=== PATIENT | male | born 1960 | race Caucasian/White ===

== ENCOUNTER 2022-01-06 15:23 | Outpatient (CLI) | payer MEDICAID, SELFPAY ==
--- NOTE | 2022-01-06 15:44 | XRR_ITS ---
PROCEDURE INFORMATION: Exam: XR Right Shoulder Exam date and time: 01/06/2022 3:44 PM Age: 61 years old Clinical indication: Pain; Shoulder; Right; Patient HX: --pt has had prior falls but nothing in the last 8 yrs. ; Additional info: Chronic right shoulder pain TECHNIQUE: Imaging protocol: Radiologic exam of the Right shoulder. Views: 2 or more views. COMPARISON: No relevant prior studies available. FINDINGS: Bones/joints: Small osteophytes at the the right glenoid. Mild hypertrophic changes at the right acromioclavicular joint. Lungs: Visualized lungs are clear. Vasculature: Vascular calcifications in the aorta. Soft tissues: No radiopaque foreign body. XR/XR shoulder RT min 2V* [id number] IMPRESSION: 1. No acute fracture of the right shoulder. Followup imaging recommended in 7-14 days if clinical concern for fracture persists. 2. Mild degenerative changes present at the right shoulder.No soft tissue swelling. 3. Incidental/nonacute findings are listed in the report.
== END 2022-01-06 15:24 | disposition home or self-care (01) ==
PROVIDERS: PCP Family Medicine; Visit Provider Family Medicine
DX: M25.511 Pain in right shoulder (principal); G89.29 Other chronic pain
CPT/HCPCS: 73030

== ENCOUNTER 2022-04-17 10:37 | Emergency (ER) | payer MEDICAID, SELFPAY ==
[2022-04-17 10:47] VITALS: PULSE 104; RESP 18; TEMP 36.4; BMI 25.0
--- NOTE | 2022-04-17 10:57 | ED_ITS ---
HPI - Abdominal Pain General: Chief Complaint: Abdominal Pain Stated Complaint: vito mitchell Time Seen by Provider: 04/17/22 10:55 History of Present Illness: Mr. Davidson is a 61-year-old gentleman with history of COPD presenting to the emergency department due to abdominal pain. He repor ts a few day history of mildly increased cough without associated fevers or significant sputum production. He subsequently developed left upper quadrant and left side pain which is exacerbated by coughing. Feels like a deep spasming ache. Course has worsened. Intensity is moderate to severe. Denies associated GI symptoms. No other specific changes in health, exacerbating, or alleviating factors identified. Onset (ago): day(s) Pain Consistency: constant Location: LUQ Severity: moderate Quality: aching and sharp Radiation: L flank Migration to: no migration Exacerbating factors: movement and other Relieving factors: nothing Associated Symptoms: Reports other Review of Systems General: Reports: 10 or more systems reviewed and unremarkable except in HPI and below GI: Reports: other [facility] ED PFSH: Medical History COPD (chronic obstructive pulmonary disease) PUD (peptic ulcer disease) Surgical History H/O hernia repair Ventral Social History Smoking and tobacco status: current every day smoker cigarettes Packs smoked per day: 0.5 Alcohol intake: never Physical Exam Const: COMMON NORMALS: alert GENERAL APPEARANCE: cooperative and well developed HENMT: COMMON NORMALS: normocephalic and atraumatic HEAD & SCALP: normocephalic and atraumatic Eye: COMMON NORMALS: conjunctivae normal CONJUNCTIVA: Yes conjunctivae normal SCLERA: sclerae normal Neck/C-Spine: COMMON NORMALS: supple GENERAL: Yes trachea midline Resp: COMMON NORMALS: clear to auscultation bilaterally EFFORT & INSPECTION: Yes able to speak in complete sentences AUSCULTATION: clear to auscultation bilaterally Cardio: COMMON NORMALS: regular rate and regular rhythm RATE: regular rate RHYTHM: regular rhythm GI: COMMON NORMALS: Soft to palpation PALPATION: Yes Soft to palpation, Yes Tenderness to palpation present (GI) Details: LUQ, No Guarding due to palpation present (GI) and No Rigid due to palpation Extremity: GENERAL: Yes normal exam except as noted and No edema Neuro: COMMON NORMALS: moves all extremities SENSORIUM/ORIENTATION: Yes alert and No Orientation impaired Psych: COMMON NORMALS: mental status grossly normal and Normal thought process present THOUGHT PROCESS: Normal thought process present Course Vital Signs: Vital signs: Vital Signs Temperature 97.6 F 04/17/22 10:47 Pulse Rate 56 L 04/17/22 13:00 Respiratory Rate 21 H 04/17/22 13:00 Blood Pressure 170/97 04/17/22 13:00 Pulse Oximetry 95 04/17/22 13:00 Oxygen Delivery Me thod 04/17/22 12:36 MDM - Abdominal Pain Medical Decision Making 61-year-old gentleman presenting with abdominal pain and cough. Exam as above. No evidence of acute surgical abdomen. EKG shows likely LVH, sinus rhythm, no STEMI No significant hematologic abnormalities, mild dehydration on metabolic panel. Delta troponin negative. Lipase minimally elevated. Hematuria on urinalysis. Chest x-ray with no lobar consolidation or pneumothorax. CT abdomen and pelvis without obvious cause of patient's symptoms. Incidental findings were discussed with the patient. Improved with fluids and morphine. Most likely cause of patient's symptoms is unspecified abdominal pain and hematuria The results of ED evaluation were discussed with the patient including prescriptions and/or symptomatic cares (if applicable) including appropriate and responsible use, followup plan, and return precautions. The patient verbalized understanding and felt safe for discharge. Medical Records I reviewed the patient's medical records. Lab Data I reviewed the patient's lab results. 04/17/22 11:25 04/17/22 11:25 Labs/Radiology: Radiology Impressions Chest X-Ray 04/17/22 11:10 IMPRESSION: 1. No acute cardiopulmonary finding. No change. Abdomen/Pelvis CT 04/17/22 11:41 IMPRESSION: 1. Posterolateral left 11th rib fracture felt to be chronic. 2. 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 3. No renal, ureteral, nor bladder calculi detected. 4. No acute intra-abdominal pathology. Laboratory Results WBC 4.8 10^3/uL (4.0-10.0) 04/17/22 11:25 RBC 4.82 10^6/uL (4.1-5.3) 04/17/22 11:25 Hgb 15.4 g/dL (11.7-16.6) 04/17/22 11:25 Hct 45.5 % (42.0-52.0) 04/17/22 11:25 MCV 94.4 fl (80-94) H 04/17/22 11:25 MCH 32.0 pg (28.0-34.0) 04/17/22 11:25 MCHC 33.8 g/dL (30.0-36.0) 04/17/22 11:25 RDW 12.0 % (12.1-15.1) L 04/17/22 11:25 Plt Count 160 10^3/cmm (130-400) 04/17/22 11:25 MPV 10.3 fL (7.4-10.4) 04/17/22 11:25 Neut % (Auto) 65.3 % 04/17/22 11:25 Lymph % (Auto) 23.2 % 04/17/22 11:25 Curry % (Auto) 10.7 % 04/17/22 11:25 Eos % (Auto) 0.2 % 04/17/22 11:25 Baso % (Auto) 0.4 % 04/17/22 11:25 Neut # (Auto) 3.12 10^3/uL (1.8-7.7) 04/17/22 11:25 Lymph # (Auto) 1.1 10^3/uL (0.8-4.8) 04/17/22 11:25 Curry # (Auto) 0.5 10^3/uL (0.2-0.9) 04/17/22 11:25 Eos # (Auto) 0.0 10^3/uL (0.0-0.8) 04/17/22 11:25 Baso # (Auto) 0.0 10^3/uL (0.0-0.1) 04/17/22 11:25 Nucleated RBC % (auto) 0 % 04/17/22 11:25 Nucleated RBCs # 0.0 /100WBC 04/17/22 11:25 Sodium 133 mmol/L (136-145) L 04/17/22 11:25 Potassium 4.1 mmol/L (3.5-5.1) 04/17/22 11:25 Chloride 94 mmol/L (98-107) L 04/17/22 11:25 Carbon Dioxide 28 mmol/L (22-29) 04/17/22 11:25 Anion Gap 15.1 (5-19) 04/17/22 11:25 BUN 11 mg/dL (8-23) 04/17/22 11:25 Creatinine 0.8 mg/dL (0.7-1.2) 04/17/22 11:25 GFR Calculation 97.6 mL/min (90-130) 04/17/22 11:25 Glucose 109 mg/dL (65-115) 04/17/22 11:25 Calculated Osmolality 276 mOsm/kg (285-295) L 04/17/22 11:25 Calcium 9.3 mg/dL (8.5-10.5) 04/17/22 11:25 Total Bilirubin 0.3 mg/dL (0.15-1.2) 04/17/22 11:25 AST 32 U/L (0-40) 04/17/22 11:25 ALT 33 U/L (0-41) 04/17/22 11:25 Alkaline Phosphatase 61 U/L (40-130) 04/17/22 11:25 Troponin T Baseline 22 ng/L (0-15) H 04/17/22 11:25 Troponin T 120 Minute 19.59 ng/L (0-15) H 04/17/22 13:19 Delta Troponin T -2.41 ABS# (0-10) L 04/17/22 13:19 Total Protein 7.9 g/dL (6.6-8.7) 04/17/22 11:25 Albumin 4.2 g/dL (3.5-5.2) 04/17/22 11:25 Globulin 3.7 g/dL (1.3-4.6) 04/17/22 11:25 Lipase 61 U/L (13-60) H 04/17/22 11:25 Urine Color Yellow (Yellow) 04/17/22 12:31 Urine Appearance Clear (CLEAR) 04/17/22 12:31 Urine pH 7 (5-7) 04/17/22 12:31 Ur Specific [place] 1.010 (1.005-1.030) 04/17/22 12:31 Urine Protein Neg (Negative) 04/17/22 12:31 Urine Glucose (UA) Norm (Normal) 04/17/22 12:31 Urine Ketones Negative (Negative) 04/17/22 12:31 Urine Blood 3+ (Negative) H 04/17/22 12:31 Urine Nitrate Negative (Negative) 04/17/22 12:31 Urine Bilirubin Neg (Negative) 04/17/22 12:31 Urine Urobilinogen Norm mg/dL (Negative) 04/17/22 12:31 Ur Leukocyte Esterase Negative (Negative) 04/17/22 12:31 Urine RBC 10-15 /hpf (0-2) H 04/17/22 12:31 Urine WBC 0-4 /hpf (0-5) H 04/17/22 12:31 Ur Squamous Epith Cells 0-4 /hpf (0-5) H 04/17/22 12:31 Amorphous Sediment Not Reportable 04/17/22 12:31 Urine Bacteria 1+ /hpf (NONE) H 04/17/22 12:31 Urine Mucus Trace /hpf 04/17/22 12:31 Discharge Plan Discharge Patient Disposition: Home Clinical Impression: Abdominal pain, Hematuria, Dehydration, mild, Cough Condition: Stable Prescriptions: New ondansetron 4 mg tablet,disintegrating 4 mg PO Q8H PRN (Reason: nausea and vomiting) Qty: 15 0RF oxycodone 5 mg tablet 5 mg PO Q4H PRN (Reason: pain) Qty: 4 0RF No Action ProAir HFA 90 mcg/actuation HFA aerosol inhaler 2 puff inhalation Q6H PRN (Reason: Shortness Of Breath) Discharge Orders: Discharge ED (Routine); Ordered 04/17/22 Ordered By: Raudel Bynum Referrals: Milla Og DO [Primary Care Provider] - Discharge Diet: Usual diet Discharge Activity: Increase activity as tolerated Patient Instructions: Hematuria (ED), Abdominal Pain (ED), Opioid Safety, Pain Management Activity Restrictions/Additional Instructions: Thank you for visiting the emergency department. You were seen evaluated for abdominal pain. The exact cause of your abdominal pain is unclear. You were noted to have blood in your urine which requires further outpatient evaluation which can be arranged by your primary care provider. Please follow-up with your primary care provider. Please ensure that you are staying hydrated. Return to the emergency department for uncontrolled symptoms or anything else that you are concerned about a feel needs emergency department evaluation. Coding Level of Care Code ED Animal Husbandman for Chg Fwd Exam Comprehensive
--- NOTE | 2022-04-17 11:10 | XR_ITS ---
WS: [id number] Exam: XR chest 1V portable [id number] Date/Time of Exam: 04/17/2022 11:32 AM Reason For Exam: cough Comparison 03/21/2018. The lungs are fully expanded and clear. Normal cardiomediastinal silhouette. Bony structures are inta ct. Mild levoscoliosis of the T-spine. Monitoring leads superimpose the chest. XR/XR chest 1V portable [id number] IMPRESSION: 1. No acute cardiopulmonary finding. No change.
--- NOTE | 2022-04-17 11:19 | ECG_ITS ---
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 Measurements Intervals [place] Rate: 89 P: 75 MA: 159 QRS: 78 QRSD: 95 T: 69 QT: 363 QTc: 444 Interpretive Statements SINUS RHYTHM VOLTAGE CRITERIA FOR LVH [MEETS CRITERIA IN ONE OF: R(aVL), S(V1), R(V5), R(V5/V6)+S(V1)] No previous ECG available for comparison Electronically Signed On 04-20-2022 18:27:02 DISTRIBUTED GENERATION PROJECT MANAGER by Rj Groves M.D. [id number]
[2022-04-17] MEDS: sodium chloride 0.9% 1,000 ML 999 ML IV (11:28)
[2022-04-17 11:29] VITALS: RESP 16
[2022-04-17] MEDS: morphine 4 mg/mL SDV 1 mL IVP (11:29)
[2022-04-17 11:31] LABS: Basophils % 0.4 %; Eosinophils % 0.2 %; Hematocrit 45.5 % (42.0-52.0); Hemoglobin 15.4 g/dL (11.7-16.6); Lymphocytes # 1.1 10^3/uL (0.8-4.8); Lymphocytes % 23.2 %; Mean Corpuscular HGB Conc 33.8 g/dL (30.0-36.0); Mean Corpuscular Volume 94.4 fl (80-94); Mean Platelet Volume 10.3 fL (7.4-10.4); Monocytes # 0.5 10^3/uL (0.2-0.9); Monocytes % 10.7 %; Neutrophils # 3.12 10^3/uL (1.8-7.7); Neutrophils % 65.3 %; Nucleated Red Blood Cells % 0 %; Platelet Count 160 10^3/cmm (130-400); Red Blood Count 4.82 10^6/uL (4.1-5.3); White Blood Count 4.8 10^3/uL (4.0-10.0)
--- NOTE | 2022-04-17 11:41 | CTR_ITS ---
PROCEDURE INFORMATION: Exam: CT Abdomen And Pelvis With Contrast Exam date and time: 04/17/2022 12:32 PM Age: 61 years old Clinical indication: Abdominal pain; Generalized; Prior surgery; Surgery date: 6+ months; Surgery type: Hernia; Additional info: Luq/l flank pain TECHNIQUE: Imaging protocol: Computed tomography of the abdomen and pelvis with contrast. Total images: 2 Radiation optimization: All CT scans at this facility use at least one of these dose optimization techniques: automated exposure control; mA and/or kV adjustment per patient size (includes targeted exams where dose is matched to clinical indication); or iterative reconstruction. Contrast material: OMNIPAQUE 350; Contrast volume: 95 ml; Contrast route: INTRAVENOUS (IV); COMPARISON: US scrotum [id number] 09/22/2015 2:16 PM RADIATION DOSE METRICS: Total DLP (mGy-cm): 349.73 FINDINGS: Liver: 7 mm benign-appearing hepatic cyst, requiring no further evaluation. Gallbladder and bile ducts: Normal. No calcified stones. No ductal dilation. Pancreas: Normal. No ductal dilation. Spleen: Normal. No splenomegaly. Adrenal glands: Normal. No mass. Kidneys and ureters: No renal, ureteral, nor bladder calculi detected. Stomach and bowel: Unremarkable. No obstruction. No mucosal thickening. Appendix: No evidence of appendicitis. Intraperitoneal space: Unremarkable. No free air. No significant fluid collection. Vasculature: Moderate atherosclerotic disease is evident. 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 Lymph nodes: Unremarkable. No enlarged lymph nodes. Urinary bladder: See Kidneys and ureters finding. Reproductive: The prostate gland contains benign-appearing calcifications that are likely parenchymal. Bones/joints: Posterolateral left 11th rib fracture felt to be chronic. Soft tissues: Unremarkable. CT/CT abdomen pelvis w con* [id number] IMPRESSION: 1. Posterolateral left 11th rib fracture felt to be chronic. 2. 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 3. No renal, ureteral, nor bladder calculi detected. 4. No acute intra-abdominal pathology.
[2022-04-17 11:50] LABS: Troponin(5th) Baseline 22 ng/L (0-15)
[2022-04-17 11:52] LABS: Alanine Aminotransferase 33 U/L (0-41); Albumin Level 4.2 g/dL (3.5-5.2); Alkaline Phosphatase 61 U/L (40-130); Anion Gap 15.1 (5-19); Aspartate Amino Transferase 32 U/L (0-40); Blood Urea Nitrogen 11 mg/dL (8-23); Calcium 9.3 mg/dL (8.5-10.5); Carbon Dioxide 28 mmol/L (22-29); Chloride 94 mmol/L (98-107); Globulin 3.7 g/dL (1.3-4.6); Glomerular Filtration Rate 97.6 mL/min (90-130); Glucose 109 mg/dL (65-115); Lipase 61 U/L (13-60); Osmolality Calculated 276 mOsm/kg (285-295); Potassium 4.1 mmol/L (3.5-5.1); Sodium 133 mmol/L (136-145); Total Bilirubin 0.3 mg/dL (0.15-1.2); Total Protein 7.9 g/dL (6.6-8.7)
[2022-04-17 12:35] VITALS: BP 166/98
[2022-04-17 12:36] VITALS: BP 166/98; PULSE 65; RESP 14; O2SAT 98
[2022-04-17] MEDS: iohexol 350 mg/mL 500 mL Btl (per mL) IV (12:36)
[2022-04-17 13:00] VITALS: BP 170/97; PULSE 56; RESP 21; O2SAT 95
[2022-04-17 13:09] LABS: Add Urine Microscopic? YES; Bilirubin Urine Neg (Negative); Blood Urine 3+ (Negative); Glucose Urine UA Norm (Normal); Ketones Urine Negative (Negative); Leukocyte Esterase Urine Negative (Negative); Nitrate Urine Negative (Negative); Protein Urine Neg (Negative); Urine Appearance Clear (CLEAR); Urine Color Yellow (Yellow); Urobilinogen Urine Norm (Negative); pH Urine 7 (5-7)
[2022-04-17 13:10] LABS: Add Urine Culture? Yes; Bacteria Urine 1+ /hpf; Mucus Urine TRACE /hpf; Squamous Epithelial Cell Urine 0-4 /hpf (0-5); WBC Urine 0-4 /hpf (0-5)
[2022-04-17 13:45] LABS: Troponin 5 2HR 19.59 ng/L (0-15)
[2022-04-17 13:46] LABS: Troponin 5 2HR Delta -2.41 ABS# (0-10)
== END 2022-04-17 13:40 | disposition home or self-care (01) ==
PROVIDERS: Emergency Provider Emergency Medicine; PCP Family Medicine
DX: R10.12 Left upper quadrant pain (principal); R31.9 Hematuria, unspecified; E86.0 Dehydration; R05.9 Cough, unspecified
CPT/HCPCS: 36415; 71045; 74177; 80053; 81001; 83690; 84484; 85025; 87086; 93005; 96361; 96374; 99285; J2270; J7030; Q9967

== ENCOUNTER → 2024-05-04 14:29 | Outpatient (BNVA) | payer MEDICAID, SELFPAY | PROVIDERS: PCP Family Medicine Adult Medicine | DX: J43.1 Panlobular emphysema (principal); R05.9 Cough, unspecified | CPT/HCPCS: 71046 ==

== ENCOUNTER 2024-05-23 10:10 | Emergency (ER) | payer MEDICAID, SELFPAY ==
[2024-05-23] VITALS (17 sets, daily range): BP systolic 125–182; BP diastolic 84–105; PULSE 85–109; RESP 16–22; TEMP 36.3; O2SAT 91–96; BMI 23.4
--- NOTE | 2024-05-23 10:26 | ECG_ITS ---
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 Measurements Intervals [place] Rate: 84 P: 94 ID: [id number] QRS: 95 QRSD: 93 T: 87 QT: 334 QTc: 395 Interpretive Statements SINUS RHYTHM BORDERLINE RIGHT AXIS DEVIATION [QRS AXIS > 90] VOLTAGE CRITERIA FOR LVH [MEETS CRITERIA IN ONE OF: R(aVL), S(V1), R(V5), R(V5/V6)+S(V1)] Compared to ECG 04/17/2022 11:19:12 No significant changes Electronically Signed On 05-23-2024 21:24:43 WEAPONS AND TACTICS INSTRUCTOR by Ras Arroyo M.D. [id number]
--- NOTE | 2024-05-23 10:59 | XRR_ITS ---
PROCEDURE INFORMATION: Exam: XR Chest Exam date and time: 05/23/2024 11:17 AM Age: 63 years old Clinical indication: Cough and dyspnea; Additional info: Dyspnea/cough TECHNIQUE: Imaging protocol: Radiologic exam of the chest. Views: 1 view. COMPARISON: CR XR chest 2V* [id number] 05/04/2024 2:30 PM FINDINGS: Lungs: Asymmetrically small left lung volume. Patchy and hazy airspace opacities in the left lung, worsened compared to 05/04/2024. This likely includes moderate left basilar atelectasis. Pleural spaces: No distinct pneumothorax. Questionable left pleural effusion. Heart/Mediastinum: Allowing for patient positioning, cardiomediastinal silhouette is midline and normal in size. Bones/joints: No acute osseous findings. XR/XR chest 1V portable [id number] IMPRESSION: 1. Asymmetrically small left lung volume. 2. Patchy and hazy airspace opacities in the left lung, worsened compared to 05/04/2024. This likely includes moderate left basilar atelectasis. Overlying asymmetric edema and/or infiltrate is not excluded. 3. Questionable left pleural effusion.
[2024-05-23] MEDS: ipratropium-albuterol 3 mL Neb INHALATION (11:43)
[2024-05-23] MEDS: methylPREDNISolone sod succ 125 mg/2 mL INJ IVP (11:53)
--- NOTE | 2024-05-23 11:57 | ED_ITS ---
HPI - SOB/Dyspnea 2 General: Chief Complaint: Shortness of Breath/Dyspnea Stated Complaint: chest congestion Time Seen by Provider: 05/23/24 10:59 History of Present Illness: HPI Narrative: 63-year-old male presents emergency room complaining of his lungs hurting. I am unable to get him to focus anymore when I ask him specifically where in his chest it is hurting he became angry and said in my chest this is my chest and this is my foot it does not hurt in my foot it hurts in my chest . He denies any previous surgeries to his chest she has not had any hemoptysis or productive cough he has been very short of breath he has a history of COPD patient is a regular smoker. He has had an abnormal lung findings in the past. Denies any fever sweats or chills. No recent trauma. I was able to clarify that his foot was not hurting Associated symptoms: Reports chest pain; Deny abdominal pain, fever(s) or hemoptysis Related Data Home Medications Medication Instructions Recorded Confirmed albuterol sulfate 90 mcg/actuation 2 puff inhalation Q4H PRN 05/23/24 05/23/24 aerosol inhaler (Ventolin HFA) shortness of breath or wheezing Allergies Allergy/AdvReac Type Severity Reaction Status Date / Time No Known Allergies Allergy Verified 05/04/24 14:06 Review of Systems 2 Const: Denies: fever(s) or chills Card: Reports: chest pain; Denies: edema or swelling of feet/ankles Resp: Reports: dyspnea, non-productive cough and wheezing; Denies: hemoptysis GI: Denies: abdominal pain : Denies: dysuria, urinary frequency or urinary urgency Musc: Denies: neck pain or back pain Skin/Breast: Denies: rash PFSH ED 2 PFSH: Medical History Abnormal CT lung screening Lung nodule seen on imaging study Smoker unmotivated to quit Started age 13 1/2 to 1 ppd PUD (peptic ulcer disease) COPD (chronic obstructive pulmonary disease) Surgical History H/O hernia repair Ventral Social History Smoking and tobacco/nicotine status: current every day tobacco/nicotine user cigarettes Packs smoked per day: 0.5 Alcohol intake: never Substance/Drug Use: current Substance/Drug use frequency: few times a week Physical Exam 2 Const: GENERAL APPEARANCE: cooperative ORIENTATION/CONSCIOUSNESS: Yes awake, Yes oriented to person, Yes oriented to place and Yes oriented to time HENMT: COMMON NORMALS: normocephalic, atraumatic and hearing grossly normal bilaterally HEAD & SCALP: normocephalic and atraumatic Resp: OTHER: Absent breath sounds on the left rhonchi expiratory wheeze on the right. Cardio: COMMON NORMALS: regular rate, regular rhythm and No murmurs present (Cardio) RATE: regular rate RHYTHM: regular rhythm GI: COMMON NORMALS: Soft to palpation and No hepatosplenomegaly present A USCULTATION: Yes normoactive bowel sounds PALPATION: Yes Soft to palpation, No Tenderness to palpation present (GI), No Guarding due to palpation present (GI) and Yes No hepatosplenomegaly present Extremity: COMMON NORMALS: normal to inspection, capillary refill normal, no clubbing, cyanosis or edema, no calf tenderness and no pedal edema Neuro: SENSORIUM/ORIENTATION: Yes oriented to person, Yes oriented to place and Yes oriented to time Skin: COMMON NORMALS: no rashes or lesions noted GENERAL SKIN EXAM: no rashes or lesions noted Course 2 Vital Signs: Vital signs: Vital Signs Temperature 97.4 F L 05/23/24 10:23 Pulse Rate 109 H 05/23/24 17:10 Respiratory Rate 22 H 05/23/24 15:45 Blood Pressure 134/92 05/23/24 17:10 Pulse Oximetry 93 05/23/24 17:10 Oxygen Delivery Me thod Nasal Cannula 05/23/24 16:49 Oxygen Flow Rate 2 05/23/24 16:49 MDM - SOB/Dyspnea Medical Decision Making CT shows large mass encasing the left mainstem bronchi. Has completely occluded it and the left lung is essentially completely atelectatic take. Patient has severe pleuritic pain and there is hyperinflation on the right. His oxygen saturation is hovering at 90%, is tachycardic and tachypneic. He was started on 2 L nasal cannula. Will transfer to [place] for pulmonology consultation. Medical Records I reviewed the patient's medical records. Lab Data I reviewed the patient's lab results. 05/23/24 11:55 05/23/24 11:55 Labs/Radiology: Radiology Impressions Chest X-Ray 05/23/24 10:59 IMPRESSION: 1. Asymmetrically small left lung volume. 2. Patchy and hazy airspace opacities in the left lung, worsened compared to 05/04/2024. This likely includes moderate left basilar atelectasis. Overlying asymmetric edema and/or infiltrate is not excluded. 3. Questionable left pleural effusion. Chest CTA 05/23/24 12:01 IMPRESSION: 1. No pulmonary embolism. 2. Volume loss in the LEFT thorax. Mediastinal structures are shifted towards the LEFT with hyperexpansion of the RIGHT lung. 3. Bronchial obstructing mass at the LEFT hilum. LEFT upper lobe bronchus is obstructed by a mass measuring 4.5 x 3.3 x 4.6 cm. Recommend bronchoscopy for biopsy of the mass. PET/CT imaging may also be of benefit. Laboratory Results WBC 9.47 10^3/uL (3.29-11.43) 05/23/24 11:55 RBC 4.81 10^6/uL (3.85-5.65) 05/23/24 11:55 Hgb 15.50 g/dL (11.27-16.99) 05/23/24 11:55 Hct 46.0 % (37-53) 05/23/24 11:55 MCV 95.6 fl (82-101) 05/23/24 11:55 MCH 32.2 pg (27-33) 05/23/24 11:55 MCHC 33.7 g/dL (30-55) 05/23/24 11:55 RDW 12.2 % (12.1-15.1) 05/23/24 11:55 Plt Count 179 10^3/cmm (157-399) 05/23/24 11:55 MPV 9.6 fL (7.4-10.4) 05/23/24 11:55 Neut % (Auto) 70.2 % 05/23/24 11:55 Lymph % (Auto) 19.0 % 05/23/24 11:55 Chambers % (Auto) 7.8 % 05/23/24 11:55 Eos % (Auto) 2.4 % 05/23/24 11:55 Baso % (Auto) 0.4 % 05/23/24 11:55 Neut # (Auto) 6.64 10^3/uL (1.8-7.7) 05/23/24 11:55 Lymph # (Auto) 1.8 10^3/uL (0.8-4.8) 05/23/24 11:55 Chambers # (Auto) 0.7 10^3/uL (0.2-0.9) 05/23/24 11:55 Eos # (Auto) 0.2 10^3/uL (0.0-0.8) 05/23/24 11:55 Baso # (Auto) 0.0 10^3/uL (0.0-0.1) 05/23/24 11:55 Nucleated RBC % (auto) 0 % 05/23/24 11:55 Nucleated RBCs # 0.0 /100WBC 05/23/24 11:55 Specimen Type Arterial 05/23/24 12:25 Sample Site Brachial, right 05/23/24 12:25 ABG pH 7.40 (7.35-7.45) 05/23/24 12:25 ABG pCO2 42.5 mmHg (35-45) 05/23/24 12:25 ABG pO2 62.5 mmHg (80.0-100.0) L 05/23/24 12:25 ABG PO2/FiO2 Ratio 297 05/23/24 12:25 ABG HCO3 26.1 mmol/L (22-26) H 05/23/24 12:25 ABG O2 Saturation 92.3 05/23/24 12:25 ABG Base Excess 0.9 mmol/L (-2.0-2.0) 05/23/24 12:25 Mickey Test N/a 05/23/24 12:25 A-a O2 Gradient 4.6 mmHg (5-10) L 05/23/24 12:25 Hematocrit 46.5 % (42-52) 05/23/24 12:25 Hgb O2 Saturation 89.1 % (95-100) L 05/23/24 12:25 Carboxyhemoglobin 2.6 %THgb (0.4-20.1) 05/23/24 12:25 Methemoglobin 0.9 % (0.4-1.5) 05/23/24 12:25 Total Hemoglobin 15.2 g/dL (14-18) 05/23/24 12:25 Sodium 137.0 mmol/L (131-143) 05/23/24 12:25 Potassium 3.8 mmol/L (3.5-5.0) 05/23/24 12:25 Glucose 103.0 mg/dL (70-115) 05/23/24 12:25 Ionized Calcium 1.2 mmol/L (1.1-1.4) 05/23/24 12:25 O2 Delivery Device Room air 05/23/24 12:25 FiO2 21.0 % 05/23/24 12:25 Green Feed Attendant ID Amh 05/23/24 12:25 Sodium 137 mmol/L (136-145) 05/23/24 11:55 Potassium 4.2 mmol/L (3.5-5.1) 05/23/24 11:55 Chloride 99 mmol/L (98-107) 05/23/24 11:55 Carbon Dioxide 29 mmol/L (22-29) 05/23/24 11:55 Anion Gap 13.2 (5-19) 05/23/24 11:55 BUN 16 mg/dL (8-23) 05/23/24 11:55 Creatinine 0.8 mg/dL (0.7-1.2) 05/23/24 11:55 GFR Calculation 97.0 mL/min (90-130) 05/23/24 11:55 Glucose 99 mg/dL (65-115) 05/23/24 11:55 Calculated Osmolality 285 mOsm/kg (285-295) 05/23/24 11:55 Calcium 9.7 mg/dL (8.5-10.5) 05/23/24 11:55 Total Bilirubin 0.4 mg/dL (0.15-1.2) 05/23/24 11:55 AST 28 U/L (0-40) 05/23/24 11:55 ALT 31 U/L (0-41) 05/23/24 11:55 Alkaline Phosphatase 56 U/L (40-130) 05/23/24 11:55 Troponin T Baseline 13 ng/L (0-15) 05/23/24 11:55 Troponin T 120 Minute 11.32 ng/L (0-15) 05/23/24 12:49 Delta Troponin T -1.68 ABS# (0-10) L 05/23/24 12:49 Total Protein 7.7 g/dL (6.6-8.7) 05/23/24 11:55 Albumin 4.2 g/dL (3.5-5.2) 05/23/24 11:55 Globulin 3.5 g/dL (1.3-4.6) 05/23/24 11:55 Urine Color Yellow (Yellow) 05/23/24 15:00 Urine Appearance Clear (CLEAR) 05/23/24 15:00 Urine pH 6.5 (5-7) 05/23/24 15:00 Ur Specific [place] 1.049 (1.005-1.030) H 05/23/24 15:00 Urine Protein Negative (Negative) 05/23/24 15:00 Urine Glucose (UA) Negative (Normal) 05/23/24 15:00 Urine Ketones 1+ (Negative) H 05/23/24 15:00 Urine Blood 1+ (Negative) A 05/23/24 15:00 Urine Nitrate Negative (Negative) 05/23/24 15:00 Urine Bilirubin Negative (Negative) 05/23/24 15:00 Urine Urobilinogen 1.0 mg/dL (Negative) 05/23/24 15:00 Ur Leukocyte Esterase Negative (Negative) 05/23/24 15:00 Urine RBC 3-5 /hpf (0-2) 05/23/24 15:00 Urine WBC 0-5 /hpf (0-5) 05/23/24 15:00 Ur Squamous Epith Cells 0-5 /hpf (0-5) 05/23/24 15:00 Amorphous Sediment Not Reportable 05/23/24 15:00 Urine Bacteria None seen /hpf (NONE) 05/23/24 15:00 Hyaline Casts 0-4 /lpf H 05/23/24 15:00 Urine Opiates Screen Positive ng/mL (Negative) H 05/23/24 15:00 Ur Barbiturates Screen Negative ng/mL (Negative) 05/23/24 15:00 Ur Phencyclidine Scrn Negative ng/mL (Negative) 05/23/24 15:00 Ur Amphetamines Screen Negative ng/mL (Negative) 05/23/24 15:00 U Benzodiazepines Scrn Positive ng/mL (Negative) H 05/23/24 15:00 Urine Cocaine Screen Negative ng/mL (Negative) 05/23/24 15:00 U Marijuana (THC) Screen Positive ng/mL (Negative) H 05/23/24 15:00 Coronavirus (PCR) Negative (Negative) 05/23/24 11:35 Influenza A (PCR) Negative (Negative) 05/23/24 11:35 Influenza Type B (PCR) Negative (Negative) 05/23/24 11:35 RSV (PCR) Negative (Negative) 05/23/24 11:35 All radiology interpretation(s) finalized by discharge Discharge Plan Discharge Patient Disposition: Xfer Short-Term Hosp Clinical Impression: Mass of left lung Condition: Stable Referrals: Felix Sheppard MD [Primary Care Provider] - Coding Level of Care Code ED Biochemical Engineer for Afua Moncada
--- NOTE | 2024-05-23 12:01 | CT_ITS ---
WS: [id number] CT CHEST ANGIOGRAPHY WITH REFORMATS HISTORY: chest pain/dyspnea TECHNIQUE: Contiguous axial images are obtained through the chest during arterial injection of intrav enous contrast. Images are reconstructed to evaluate the pulmonary arteries. MIP imaging also reviewe d. All CT scans at [facility] use at least one of these dose optimization techniques: automat ed exposure control; mA and/or kV adjustment per patient size (includes targeted exams where dose is matched to clinical indication); or iterative reconstruction. CONTRAST: Omnipaque 350; 100 mL IV. DLP: 18.70 mGy.cm COMPARISON: 12/14/2023 Adequate opacification of the central pulmonary arteries. No central pulmonary embolism. Opacificatio n becomes suboptimal in the subsegmental branches. No pulmonary embolism is identified centrally. Ath erosclerotic ectatic thoracic aorta. There is volume loss in the LEFT thorax with shift of the mediastinal structures to the LEFT. Hyperex pansion of the RIGHT lung. These findings are new since 12/14/2023. There is a mass centered at the LE FT hilum obstructing the proximal LEFT upper lobe bronchus. Mass at the LEFT hilum measures 4.5 x 3.3 x 4.6 cm. Mass extends into to the LEFT upper lobe encasing the bronchovascular tree. Diffusely thro ughout the LEFT lung there is increased interstitial thickening which in part is due to the volume lo ss. Lymphangitic spread of tumor is not excluded. No pneumothorax. Indeterminate periaortic lymph node measures 12 mm. LEFT adrenal adenoma. Visualized liver is clear. Suprarenal aortic calcifications. Mild anterior wedging of T4. CT/CT angio chest PE protcl [id number] IMPRESSION: 1. No pulmonary embolism. 2. Volume loss in the LEFT thorax. Mediastinal structures are shifted towards the LEFT with hyperexpansion of the RIGHT lung. 3. Bronchial obstructing mass at the LEFT hilum. LEFT upper lobe bronchus is o bstructed by a mass measuring 4.5 x 3.3 x 4.6 cm. Recommend bronchoscopy for bi opsy of the mass. PET/CT imaging may also be of benefit.
[2024-05-23 12:02] LABS: Basophils % 0.4 %; Eosinophils # 0.2 10^3/uL (0.0-0.8); Eosinophils % 2.4 %; Lymphocytes # 1.8 10^3/uL (0.8-4.8); Mean Corpuscular HGB Conc 33.7 g/dL (30-55); Mean Corpuscular Hemoglobin 32.2 pg (27-33); Mean Corpuscular Volume 95.6 fl (82-101); Mean Platelet Volume 9.6 fL (7.4-10.4); Monocytes # 0.7 10^3/uL (0.2-0.9); Monocytes % 7.8 %; Neutrophils # 6.64 10^3/uL (1.8-7.7); Neutrophils % 70.2 %; Nucleated Red Blood Cells % 0 %; Platelet Count 179 10^3/cmm (157-399); Red Blood Count 4.81 10^6/uL (3.85-5.65); Red Cell Distribution Width 12.2 % (12.1-15.1); White Blood Count 9.47 10^3/uL (3.29-11.43)
[2024-05-23] MEDS: LORazepam 2 mg/mL INJ 1 mL 1 MG IVP (12:18)
[2024-05-23 12:19] LABS: Alanine Aminotransferase 31 U/L (0-41); Albumin Level 4.2 g/dL (3.5-5.2); Alkaline Phosphatase 56 U/L (40-130); Aspartate Amino Transferase 28 U/L (0-40); Blood Urea Nitrogen 16 mg/dL (8-23); Calcium 9.7 mg/dL (8.5-10.5); Carbon Dioxide 29 mmol/L (22-29); Chloride 99 mmol/L (98-107); Creatinine Clr Calc Pharmacy 89.8193; Globulin 3.5 g/dL (1.3-4.6); Glucose 99 mg/dL (65-115); Osmolality Calculated 285 mOsm/kg (285-295); Sodium 137 mmol/L (136-145); Total Bilirubin 0.4 mg/dL (0.15-1.2); Total Protein 7.7 g/dL (6.6-8.7)
[2024-05-23 12:21] LABS: Covid PCR NEGATIVE (Negative); Influenza A NEGATIVE (Negative); Influenza B NEGATIVE (Negative); Respiratory Syncytial Virus Ce NEGATIVE (Negative)
[2024-05-23 12:33] LABS: Anion Gap 13.2 (5-19); Potassium 4.2 mmol/L (3.5-5.1)
[2024-05-23 12:38] LABS: ABG PCO2 42.5 mmHg (35-45); Alveolar-Arterial Oxygen Gradi 4.6 mmHg (5-10); Arterial Blood Gas Hematocrit 46.5 % (42-52); Base Excess ABG 0.9 mmol/L (-2.0-2.0); Blood Gas Operator Identificat AMH; Blood Gas Sample Site Brachial, right; Blood Gas Sample Type Arterial; Carboxyhemoglobin 2.6 %THgb (0.4-20.1); HCO3 ABG 26.1 mmol/L (22-26); HGB O2 Sat 89.1 % (95-100); Ionized Calcium Level - ABG 1.2 mmol/L (1.1-1.4); Methemoglobin 0.9 % (0.4-1.5); Oxygen Device ROOM AIR; Oxygen Saturation ABG 92.3; PO2 ABG 62.5 mmHg (80.0-100.0); PO2 FiO2 Ratio Arterial Blood 297; Potassium Level - ABG 3.8 mmol/L (3.5-5.0); Total Hemoglobin 15.2 g/dL (14-18)
[2024-05-23 12:42] LABS: Troponin(5th) Baseline 13 ng/L (0-15)
[2024-05-23] MEDS: morphine 4 mg/mL SDV 1 mL IVP ×2 (13:21→15:45)
[2024-05-23] MEDS: iohexol 350 mg/mL 500 mL Btl (per mL) IV (13:44)
--- NOTE | 2024-05-23 13:46 | PC.NURSE ---
pt has been having odd behaviors upon being seated in er. pt at first ct scan would not tolerate sitting still or laying flat for scan. pt brought back to room, notified and ordered meds, pt received meds and stated they helped, ct tried again, pt was able to tolerate laying flat more this time. pt still at times would not follow directions. pt scan completed. pt currently resting in bed on side with eyes closed.
--- NOTE | 2024-05-23 13:53 | PC.NURSE ---
pt has continued to take off vital signs equipment even after being told to leave them on. pt voiced understanding and then continues to remove them. pt also received pain medications, stated they helped.
--- NOTE | 2024-05-23 14:08 | ECG_ITS ---
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 Measurements Intervals [place] Rate: 99 P: 0 DE: 0 QRS: 95 QRSD: 90 T: 79 QT: 333 QTc: 427 Interpretive Statements SUPRAVENTRICULAR RHYTHM BORDERLINE RIGHT AXIS DEVIATION [QRS AXIS > 90] VOLTAGE CRITERIA FOR LVH [MEETS CRITERIA IN ONE OF: R(aVL), S(V1), R(V5), R(V5/V6)+S(V1)] NONSPECIFIC ST ELEVATION [0.05+ mV ST ELEVATION] Compared to ECG 05/23/2024 10:26:01 Supraventricular rhythm now present ST (T wave) deviation now present Sinus rhythm no longer present Electronically Signed On 05-23-2024 21:48:55 GENERATION ENGINEER by Ras Arroyo M.D. [email or web address]
[2024-05-23 14:11] LABS: Troponin 5 2HR 11.32 ng/L (0-15)
[2024-05-23 14:19] LABS: Troponin 5 2HR Delta -1.68 ABS# (0-10)
[2024-05-23 15:20] LABS: Bilirubin Urine Negative (Negative); Blood Urine 1+ (Negative); Glucose Urine UA Negative (Normal); Ketones Urine 1+ (Negative); Leukocyte Esterase Urine Negative (Negative); Nitrate Urine Negative (Negative); Protein Urine Negative (Negative); Urine Appearance Clear (CLEAR); Urine Color Yellow (Yellow); pH Urine 6.5 (5-7)
--- NOTE | 2024-05-23 15:24 | PC.NURSE ---
er to er transfer called to iris ricardo rn at 1520. [facility] transfer for pulmonology.
[2024-05-23 15:25] LABS: Add Urine Microscopic? YES; Bacteria Urine None Seen /hpf; Hyaline Casts Urine 0-4 /lpf; Squamous Epithelial Cell Urine 0-5 /hpf (0-5); WBC Urine 0-5 /hpf (0-5)
[2024-05-23 15:29] LABS: Amphetamines Screen Urine Negative (Negative); Barbiturates Screen Urine Negative (Negative); Benzodiazepines Screen Urine Positive (Negative); Cocaine Screen Urine Negative (Negative); Opiate Screen Urine Positive (Negative); PCP Screen Urine Negative (Negative); THC Screen Urine Positive (Negative)
[2024-05-23 15:35] LABS: Specific Gravity, Urine 1.049 (1.005-1.030)
--- NOTE | 2024-05-23 16:49 | PC.NURSE ---
pt has continued to remove vs equipment.
== END 2024-05-23 17:13 | disposition short-term general hospital (02) ==
PROVIDERS: Emergency Provider Family Medicine; PCP Family Medicine Adult Medicine
DX: R91.8 Other nonspecific abnormal finding of lung field (principal); Z11.52 Encounter for screening for COVID-19; F17.210 Nicotine dependence, cigarettes, uncomplicated; J44.9 Chronic obstructive pulmonary disease, unspecified
CPT/HCPCS: 36415; 36600; 71045; 71275; 80051; 80053; 80306; 81001; 82330; 82805; 84484; 85025; 87637; 93005; 94640; 96374; 96375; 96376; 99285; J2060; J2270; J2919

== ENCOUNTER 2024-05-27 23:21 | Emergency (ER) | payer MEDICAID, SELFPAY ==
[2024-05-27 23:32] VITALS: BP 138/90; PULSE 103; RESP 20; TEMP 36.7; O2SAT 90; BMI 22.6
--- NOTE | 2024-05-27 23:36 | W.ED.GENADLT ---
HPI - General Adult General: Chief complaint: Shortness of Breath/Dyspnea Stated complaint: SOB Time Seen by Provider: 05/27/24 23:31 History of Present Illness: Patient presents to the ER by EMS with complaints of shortness of breath. Patient was on his way home from [facility] where they did a bronchoscopy with a biopsy earlier today and sent him home on oxygen is never had it before. It sounds like they sent him home with a bottle of oxygen and also a concentrator but for some reason he is unable to get the concentrator to come on the bottle is out so he was short of breath when he called EMS. EMS placed him on oxygen and brought him here. Patient says he has no complaints other than just needs working oxygen. Related Data Home Medications Medication Instructions Recorded Confirmed albuterol sulfate 90 mcg/actuation 2 puff inhalation Q4H PRN 05/23/24 05/23/24 aerosol inhaler (Ventolin HFA) shortness of breath or wheezing Allergies Allergy/AdvReac Type Severity Reaction Status Date / Time No Known Allergies Allergy Verified 05/04/24 14:06 Review of Systems General: Reports: 10 or more systems reviewed and unremarkable except in HPI and below PFSH ED PFSH: Medical History Abnormal CT lung screening Lung nodule seen on imaging study Smoker unmotivated to quit Started age 13 1/2 to 1 ppd PUD (peptic ulcer disease) COPD (chronic obstructive pulmonary disease) Surgical History H/O hernia repair Ventral Social History Smoking and tobacco/nicotine status: current every day tobacco/nicotine user cigarettes Packs smoked per day: 0.5 Alcohol intake: never Substance/Drug Use: current Substance/Drug use frequency: few times a week Physical Exam Const: COMMON NORMALS: no acute distress, average body habitus, patient oriented x3, no limitations, healthy appearing, alert and well nourished Neck/C-Spine: COMMON NORMALS: no JVD Chest: COMMONS NORMALS: normal inspection of the chest and normal palpation of entire chest wall Resp: COMMON NORMALS: normal respiratory effort, No retractions, No use of accessory muscles and clear to auscultation bilaterally AUSCULTATION: clear to auscultation bilaterally Cardio: COMMON NORMALS: no JVD, regular rate, regular rhythm, S1 normal heart sound present, S2 normal heart sound present, No gallops present (Cardio), No clicks present (Cardio), No murmurs present (Cardio) and No rub (Cardio) RATE: regular rate RHYTHM: regular rhythm HEART SOUNDS: S1 normal heart sound present and S2 normal heart sound present GI: COMMON NORMALS: Normal to inspection, nondistended, normoactive bowel sounds present, Soft to palpation, non-tender, No hepatosplenomegaly present and no masses PALPATION: Yes Soft to palpation and Yes No hepatosplenomegaly present Neuro: COMMON NORMALS: patient oriented x3 SENSORIUM/ORIENTATION: Yes alert Course Vital Signs: Vital signs: Vital Signs Temperature 98.1 F 05/27/24 23:32 Pulse Rate 88 05/28/24 03:01 Respiratory Rate 20 H 05/28/24 03:01 Blood Pressure 119/80 05/28/24 00:39 Pulse Oximetry 99 05/28/24 03:01 Oxygen Delivery Me thod Nasal Cannula 05/28/24 03:01 Oxygen Flow Rate 2 05/28/24 03:01 MDM - General Adult Medical Decision Making Nursing called home health oxygen company they will come out the services equipment make sure it is working correctly. Patient must be there before the are on their way. Patient be discharged from the hospital. Medical Records I reviewed the patient's medical records. Lab Data I reviewed the patient's lab results. No radiology studies performed this visit Discharge Plan Discharge Patient Disposition: Home Clinical Impression: Hypoxia Condition: Stable Prescriptions: No Action albuterol sulfate [Ventolin HFA] 90 mcg/actuation HFA aerosol inhaler 2 puff inhalation Q4H PRN (Reason: shortness of breath or wheezing) Discharge Orders: Discharge ED (Routine); Ordered 05/28/24 Ordered By: Jhony Rucker Referrals: Felix Sheppard MD [Primary Care Provider] - 1 week Patient Instructions: Shortness of Breath (ED) Activity Restrictions/Additional Instructions: We have called your home health oxygen company they will be coming out to service your equipment and make sure it is working correctly. Thank you for choosing [facility] for your healthcare needs today. Please realize that you were seen in the emergency department and that we are providing you with an emergency medical screening exam and this may not be a complete and all exclusive of all testing and/or medical workup we may need to determine your element or severity of your illness. It is very important that you follow-up as instructed with your primary care provider or specialist for the additional evaluation and to discuss your medical treatment plan. You may return to the emergency department should you have concerns or if your condition changes or worsens in any way. Coding Level of Care Code ED Hypertrichologist for Afua Moncada
[2024-05-28 00:01] VITALS: BP 112/83; PULSE 88; RESP 22; O2SAT 92
[2024-05-28 00:39] VITALS: BP 119/80; PULSE 85; RESP 22; O2SAT 93
[2024-05-28] MEDS: morphine 4 mg/mL SDV 1 mL IVP (01:21)
[2024-05-28] MEDS: prochlorperazine 10 mg/2 mL Inj IVP (01:21)
[2024-05-28 03:01] VITALS: PULSE 88; RESP 20; O2SAT 99
[2024-05-28 05:36] VITALS: O2SAT 93
--- NOTE | 2024-05-28 05:37 | PC.NURSE ---
Pt. has been waiting for several hours for [facility] home oxygen to come set up his portable oxygen concentrator. Pt. now has concentrator and is discharged to lobby to get a ride. Pt. was asleep in bed , when woke to discharge he states that he wants more pain medication.
== END 2024-05-28 05:39 | disposition home or self-care (01) ==
PROVIDERS: Emergency Provider Emergency Medicine; PCP Family Medicine Adult Medicine
DX: R09.02 Hypoxemia (principal); F17.210 Nicotine dependence, cigarettes, uncomplicated; J44.9 Chronic obstructive pulmonary disease, unspecified
CPT/HCPCS: 96374; 96375; 99284; J0780; J2270

== ENCOUNTER 2024-05-28 06:11 | Emergency (ER) | payer MEDICAID, SELFPAY ==
[2024-05-28 06:15] VITALS: BP 124/77; PULSE 70; RESP 22; TEMP 36.4; O2SAT 90; BMI 22.8
--- NOTE | 2024-05-28 08:17 | XRR_ITS ---
PROCEDURE INFORMATION: Exam: XR Chest Exam date and time: 05/28/2024 8:30 AM Age: 63 years old Clinical indication: Pain; Chest pressure; Prior surgery; Surgery date: 3-7 days post-operative; Surgery type: Bx; Additional info: Chest pain, recent lung biopsy TECHNIQUE: Imaging protocol: Radiologic exam of the chest. Views: 1 view. COMPARISON: CT angio chest PE protcl [id number] 05/23/2024 1:34 PM FINDINGS: Lungs: Progressive opacification of the left hemithorax, minimal aeration present at this time. This is predominantly atelectatic is there is a distinct shift of the heart and mediastinum towards the left side. The right lung is hyperexpanded. Mild interstitial prominence. Pleural spaces: Unremarkable. No pleural effusion. No pneumothorax. Heart/Mediastinum: See Lungs finding. Bones/joints: Unremarkable. XR/XR chest 1V [id number] IMPRESSION: Increasing opacity on the left.
[2024-05-28 08:34] VITALS: RESP 22
[2024-05-28] MEDS: predniSONE 20 mg Tablet PO (08:34)
[2024-05-28] MEDS: amoxicillin-clav 875-125 mg Tablet 1 TAB PO (08:34)
[2024-05-28] MEDS: oxyCODONE-APAP 10-325 mg Tablet 1 TAB PO (08:34)
[2024-05-28 08:36] VITALS: BP 123/75; PULSE 93; O2SAT 87
[2024-05-28] MEDS: ipratropium-albuterol 3 mL Neb INHALATION (08:40)
[2024-05-28 08:42] VITALS: PULSE 104; RESP 26; O2SAT 90
[2024-05-28 08:47] VITALS: PULSE 96
--- NOTE | 2024-05-28 08:49 | CTR_ITS ---
PROCEDURE INFORMATION: Exam: CT Chest Without Contrast; Diagnostic Exam date and time: 05/28/2024 9:17 AM Age: 63 years old Clinical indication: Chest wall pain and on breathing and left-sided; Prior surgery; Surgery date: Post-operative (0-2 days); Surgery type: Bx; Additional info: Transbronchial lung biopsy 05/26; Here with lung pain, abnl cxr--had biopsy 05/26, appears to have new effusion TECHNIQUE: Imaging protocol: Diagnostic computed tomography of the chest without contrast. Radiation optimization: All CT scans at this facility use at least one of these dose optimization techniques: automated exposure control; mA and/or kV adjustment per patient size (includes targeted exams where dose is matched to clinical indication); or iterative reconstruction. COMPARISON: CT angio chest PE protcl [id number] 05/23/2024 1:34 PM RADIATION DOSE METRICS: Total DLP (mGy-cm): 297.05 FINDINGS: Lungs: There is prominent left lung atelectasis. This is due to a left hilar mass obstructing the left mainstem bronchus. This mass was identified on the previous CT scan. There are emphysematous changes in the right lung. Pleural spaces: Small left pleural effusion. No pneumothorax. Heart: The heart is not enlarged. There is calcification of the coronary arteries. The heart and mediastinum are shifted to the left side. Lymph nodes: Benign calcified lymph nodes. No enlarged lymph nodes. Vasculature: Unremarkable. No aortic aneurysm. Bones/joints: Unremarkable. No acute fracture. Soft tissues: Unremarkable. CT/CT chest wo con [id number] IMPRESSION: 1. Prominent left lung atelectasis due to a left pulmonary hilar mass obstructing the left mainstem bronchus. 2. Small left pleural effusion. 3. Pulmonary emphysema. COMMENTS: The presence of pulmonary emphysema on CT is an independent risk factor for lung cancer. In the absence of a history or active diagnosis of lung cancer, it is recommended that this patient with emphysema be evaluated for enrollment in a low dose CT lung cancer screening program.
--- NOTE | 2024-05-28 08:54 | ED.C_ITS ---
HPI - Psych 2 General: Chief Complaint: Psychiatric Symptoms Stated Complaint: SI due to extreme pain Time Seen by Provider: 05/28/24 06:21 History of Present Illness: 63-year-old male presents emergency depa rtment complaining of lung pain . The patient is a relatively poor historian. However he states that he was seen in the emergency department here (which I have confirmed in the chart) on 05/23 and was found to have a lung mass. He was transferred to [facility] in [place]. He had a trans bronchial lung biopsy on 05/26/2024. He was discharged the following day. Prescriptions for Augmentin 875/125, Stiolto Respimat, oxycodone, and prednisone were sent to a local pharmacy. However that pharmacy is closed during the weekend therefore he was not able to get his prescriptions. He presented last night for running out of his portable oxygen. [facility] at home was consulted and set him up with portable oxygen and an oxygen concentrator. He returns a few hours later stating that he needs pain medication. He reports the pain is all through the chest, mostly on the left side and also radiates to the back. It has been present for at least 1 month. Patient does not note that has changed abruptly. He is using 4 L of oxygen by nasal cannula; patient reports he typically uses between 3 and 4 L. When patient originally presented to the front end technician to check in, I was told that he said if he does not get pain medicine he might have to shoot himself and if he shoots himself he is going to go to hell . Patient is now calm and states he was never suicidal he just gets panicky and upset when he is in pain. He says he does not handle pain very well. Patient adamantly states that he is not thinking about hurting himself or anyone else during my interview. Related Data Home Medications Medication Instructions Recorded Confirmed albuterol sulfate 90 mcg/actuation 2 puff inhalation Q4H PRN 05/23/24 05/28/24 aerosol inhaler (Ventolin HFA) shortness of breath or wheezing Previous Rx's Medication Instructions Recorded amoxicillin 875 mg-potassium 1 tab PO BID 10 days #20 tabs 05/28/24 clavulanate 125 mg tablet oxycodone 5 mg tablet 5 mg PO Q6H PRN pain (scale score 05/28/24 7-10) 14 days #30 tabs prednisone 20 mg tablet See Rx Instructions .Route 05/28/24 .COMPLEX 9 days #7 tabs sennosides 8.6 mg-docusate sodium 1 tab-cap PO BID PRN constipation 05/28/24 50 mg tablet (Senna with Docusate #20 tabs Sodium) tiotropium 2.5 mcg-olodaterol 2.5 2 inh inhalation DAILY #4 grams 05/28/24 mcg/actuation mist for inhalation (Stiolto Respimat) Allergies Allergy/AdvReac Type Severity Reaction Status Date / Time No Known Allergies Allergy Verified 05/04/24 14:06 Review of Systems 2 General: Reports: 10 or more systems reviewed and unremarkable except in HPI and below Const: Denies: fever(s), chills or body aches Eyes: Denies: change in vision ENMT: Denies: throat pain Card: Denies: edema or syncope GI: Denies: abdominal pain, nausea, vomiting or diarrhea : Denies: flank pain, dysuria or urinary frequency Musc: Denies: neck pain, back pain, extremity pain or extremity swelling Skin/Breast: Denies: rash or erythema Neuro: Denies: numbness in extremities, weakness in extremities, lack of coordination or difficulty walking PFSH ED 2 PFSH: Medical History Abnormal CT lung screening Lung nodule seen on imaging study Smoker unmotivated to quit Started age 13 1/2 to 1 ppd PUD (peptic ulcer disease) COPD (chronic obstructive pulmonary disease) Surgical History H/O hernia repair Ventral Social History Smoking and tobacco/nicotine status: current every day tobacco/nicotine user cigarettes Packs smoked per day: 0.5 Alcohol intake: never Substance/Drug Use: current Substance/Drug use frequency: few times a week Physical Exam 2 Narrative: EXAM NARRATIVE: Shortly after patient arrived he fell asleep. When I went into his room his breakfast had been delivered. He was eating Greek toast and eggs. He was conversational and in no distress. His respiratory rate is slightly elevated but he does not appear to be laboring. He is thin. Patient's breath sounds on the left side are decreased and there is somewhat of a reverberation type sound. He has an occasional cough. Const: COMMON NORMALS: no limitations and alert EXAM LIMITATIONS: no altered mental status HENMT: COMMON NORMALS: normocephalic, atraumatic and external ears normal H EAD & SCALP: normocephalic and atraumatic EXTERNAL EAR: Yes external ears normal MOUTH: no muffled voice Eye: COMMON NORMALS: conjunctivae normal and no scleral icterus C ONJUNCTIVA: Yes conjunctivae normal Neck/C-Spine: GENERAL: Yes normal visual inspection and Yes trachea midline Cardio: COMMON NORMALS: regular rate and regular rhythm RATE: regular rate RHYTHM: regular rhythm Extremity: COMMON NORMALS: normal to inspection Neuro: COMMON NORMALS: moves all extremities, no focal motor deficits and no sensory deficits noted SENSORIUM/ORIENTATION: Yes alert SPEECH: speech normal Psych: COMMON NORMALS: mental status grossly normal, Normal thought process present and speech normal SPEECH: Yes normal speech THOUGHT PROCESS: N ormal thought process present Skin: COMMON NORMALS: no rashes or lesions noted, turgor normal and no jaundice GENERAL SKIN EXAM: no rashes or lesions noted and turgor normal Course 2 Vital Signs: Vital signs: Vital Signs Temperature 97.5 F L 05/28/24 06:15 Pulse Rate 96 05/28/24 08:47 Respiratory Rate 26 H 05/28/24 08:42 Blood Pressure 123/75 05/28/24 08:36 Pulse Oximetry 90 05/28/24 08:42 Oxygen Delivery Me thod Nasal Cannula 05/28/24 08:42 Oxygen Flow Rate 4 05/28/24 08:42 [facility] - Psych Medical Decision Making Patient with chronic lung pain. He was found to have an abnormal CT scan of his lung in November [address] angiogram on May 23 he was found to have a mass. The mass was then biopsied on 26 May. He was discharged with pain medication, Augmentin, prednisone, breathing treatment but his pharmacy was not open. Therefore he checks in the emergency department for pain control. His lung sounds were abnormal which I expected based on his CT scan results. However, I went ahead and did a chest x-ray today to make sure he did not have a pneumothorax or pneumomediastinum, etc. He has a new effusion in the left lung. This is probably not unexpected since he had biopsy. There was probably a little bit of bleeding and inflammation. Additionally, it could be a malignant effusion. Since the chest x-ray is only 2-dimensional I cannot get a full picture of what is going on in his lung. I am going to have to repeat a CT scan of the lung without contrast to make sure he does not have pneumothorax, sizable effusion, worsening pneumonia, etc. As long as it is stable I think we can discharge him and refill his medications and a pharmacy that is actually open. Clinically he does not appear distressed in any way. In fact he was conversational and eating breakfast and prior to that was asleep. He is not suicidal or homicidal. I think he has agitation and anger issues which have, according to the chart, been observed previously. Now he is calm and cooperative. We do not need to do any further psychiatric workup. Update: White blood cell count is 8. Hemoglobin is 14.4. Platelets are okay. Mild low potassium, mildly elevated blood sugar, normal renal function. CT scan of the chest shows significant left lung atelectasis due to the left pulmonary hilar mass that is obstructing the left main bronchus. There is a small associated left-sided pleural effusion which is what is accounting for worsening x-ray. The volume of the pleural effusion is small. Overall, these are expected findings. The patient has a high risk of readmission, morbidity and mortality. However, at this time there is no indication for admission as he was just seen by pulmonology in the last 48 hours. I am going to put in a case management consult to have him follow-up with his primary care in the next 3 days and to establish with oncology. Furthermore, I have prescribed his medications and printed them out so that he may take him to the pharmacy of his choice since his usual pharmacy is closed today. Lab Data 05/28/24 09:47 05/28/24 09:47 Radiology Impressions Chest X-Ray 05/28/24 08:17 IMPRESSION: Increasing opacity on the left. Chest CT 05/28/24 08:49 IMPRESSION: 1. Prominent left lung atelectasis due to a left pulmonary hilar mass obstructing the left mainstem bronchus. 2. Small left pleural effusion. 3. Pulmonary emphysema. COMMENTS: The presence of pulmonary emphysema on CT is an independent risk factor for lung cancer. In the absence of a history or active diagnosis of lung cancer, it is recommended that this patient with emphysema be evaluated for enrollment in a low dose CT lung cancer screening program. Laboratory Results WBC 8.03 10^3/uL (3.29-11.43) 05/28/24 09:47 RBC 4.51 10^6/uL (3.85-5.65) 05/28/24 09:47 Hgb 14.40 g/dL (11.27-16.99) 05/28/24 09:47 Hct 42.4 % (37-53) 05/28/24 09:47 MCV 94.0 fl (82-101) 05/28/24 09:47 MCH 31.9 pg (27-33) 05/28/24 09:47 MCHC 34.0 g/dL (30-55) 05/28/24 09:47 RDW 11.9 % (12.1-15.1) L 05/28/24 09:47 Plt Count 183 10^3/cmm (157-399) 05/28/24 09:47 MPV 9.6 fL (7.4-10.4) 05/28/24 09:47 Neut % (Auto) 70.1 % 05/28/24 09:47 Lymph % (Auto) 20.5 % 05/28/24 09:47 [place] % (Auto) 7.1 % 05/28/24 09:47 Eos % (Auto) 2.0 % 05/28/24 09:47 Baso % (Auto) 0.1 % 05/28/24 09:47 Neut # (Auto) 5.62 10^3/uL (1.8-7.7) 05/28/24 09:47 Lymph # (Auto) 1.7 10^3/uL (0.8-4.8) 05/28/24 09:47 [place] # (Auto) 0.6 10^3/uL (0.2-0.9) 05/28/24 09:47 Eos # (Auto) 0.2 10^3/uL (0.0-0.8) 05/28/24 09:47 Baso # (Auto) 0.0 10^3/uL (0.0-0.1) 05/28/24 09:47 Nucleated RBC % (auto) 0 % 05/28/24 09:47 Nucleated RBCs # 0.0 /100WBC 05/28/24 09:47 Sodium 136 mmol/L (136-145) 05/28/24 09:47 Potassium 3.3 mmol/L (3.5-5.1) L 05/28/24 09:47 Chloride 96 mmol/L (98-107) L 05/28/24 09:47 Carbon Dioxide 28 mmol/L (22-29) 05/28/24 09:47 Anion Gap 15.3 (5-19) 05/28/24 09:47 BUN 19 mg/dL (8-23) 05/28/24 09:47 Creatinine 0.8 mg/dL (0.7-1.2) 05/28/24 09:47 GFR Calculation 97.0 mL/min (90-130) 05/28/24 09:47 Glucose 156 mg/dL (65-115) H 05/28/24 09:47 Calculated Osmolality 287 mOsm/kg (285-295) 05/28/24 09:47 Calcium 9.0 mg/dL (8.5-10.5) 05/28/24 09:47 All radiology interpretation(s) finalized by discharge Discharge Plan Discharge Patient Disposition: Home Clinical Impression: Bronchial obstruction, Lung mass, Atelectasis of left lung Condition: Stable Prescriptions: New amoxicillin-pot clavulanate 875-125 mg tablet 1 tab PO BID 10 Days Qty: 20 0RF Stiolto Respimat 2.5-2.5 mcg/actuation mist 2 inh inhalation DAILY Qty: 4 1RF sennosides-docusate sodium [Senna with Docusate Sodium] 8.6-50 mg tablet 1 tab-cap PO BID PRN (Reason: constipation) Qty: 20 0RF oxycodone 5 mg tablet 5 mg PO Q6H PRN (Reason: pain (scale score 7-10)) 14 Days Qty: 30 0RF prednisone 20 mg tablet See Rx Instructions .ROUTE .COMPLEX 9 Days Qty: 7 0RF Rx Instructions: 20 mg orally for 5 days then 10mg orally for 4 days No Action albuterol sulfate [Ventolin HFA] 90 mcg/actuation HFA aerosol inhaler 2 puff inhalation Q4H PRN (Reason: shortness of breath or wheezing) Discharge Orders: Discharge ED (Routine); Ordered 05/28/24 Ordered By: Lukasz Sethi Referrals: Felix Sheppard MD [Primary Care Provider] - 05/30/24 (D/c'd from [facility] after lung biopsy with left bronchial obstruction due to lung mass) Patient Instructions: Opioid Safety, Pain Management Activity Restrictions/Additional Instructions: You have obstruction of part of your lung due to a lung mass. This has been biopsied. The biopsy results will be available through [facility]. You have been instructed by [facility] to follow-up with your primary care doctor in the next couple days and to follow-up with Dr. Solo, computer art instructor with [facility] soon as possible. Your discharge instructions from [facility] have the information to contact Dr. Solo. You also need to be established with an oncologist. I have placed a case management order and they will reach out to you to establish care. Return to the emergency department if you have trouble breathing, coughing up blood, passing out, severe lightheadedness, or other emergent symptoms. Your prescriptions have been printed out and you can take them to the pharmacy of your choice. Please be advised that opiate pain medications are typically prescribed by primary care and will not be refilled in the emergency department. 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
[2024-05-28 10:03] LABS: Basophils % 0.1 %; Eosinophils # 0.2 10^3/uL (0.0-0.8); Hematocrit 42.4 % (37-53); Lymphocytes # 1.7 10^3/uL (0.8-4.8); Lymphocytes % 20.5 %; Mean Corpuscular Hemoglobin 31.9 pg (27-33); Mean Platelet Volume 9.6 fL (7.4-10.4); Monocytes # 0.6 10^3/uL (0.2-0.9); Monocytes % 7.1 %; Neutrophils # 5.62 10^3/uL (1.8-7.7); Neutrophils % 70.1 %; Nucleated Red Blood Cells % 0 %; Platelet Count 183 10^3/cmm (157-399); Red Blood Count 4.51 10^6/uL (3.85-5.65); Red Cell Distribution Width 11.9 % (12.1-15.1); White Blood Count 8.03 10^3/uL (3.29-11.43)
[2024-05-28 10:30] LABS: Anion Gap 15.3 (5-19); Blood Urea Nitrogen 19 mg/dL (8-23); Carbon Dioxide 28 mmol/L (22-29); Chloride 96 mmol/L (98-107); Creatinine Clr Calc Pharmacy 88.8745; Glucose 156 mg/dL (65-115); Osmolality Calculated 287 mOsm/kg (285-295); Potassium 3.3 mmol/L (3.5-5.1); Sodium 136 mmol/L (136-145)
[2024-05-28 11:18] VITALS: BP 154/96; PULSE 95; RESP 18; O2SAT 97
--- NOTE | 2024-05-29 07:49 | DCPLANNER ---
messaged wpfm for er f/u
== END 2024-05-28 11:20 | disposition home or self-care (01) ==
PROVIDERS: Emergency Provider Emergency Medicine; PCP Family Medicine Adult Medicine
DX: J98.09 Other diseases of bronchus, not elsewhere classified (principal); R91.8 Other nonspecific abnormal finding of lung field; J98.11 Atelectasis; F17.210 Nicotine dependence, cigarettes, uncomplicated; J44.9 Chronic obstructive pulmonary disease, unspecified
CPT/HCPCS: 36415; 71045; 71250; 80048; 85025; 94640; 99284; J7512

== ENCOUNTER 2024-06-08 21:37 | Emergency (ER) | payer MEDICAID, SELFPAY ==
[2024-06-08] VITALS (7 sets, daily range): BP systolic 103–126; BP diastolic 65–71; PULSE 68–83; RESP 16–20; TEMP 37.1; O2SAT 92–94; BMI 21.2
--- NOTE | 2024-06-08 21:44 | XRR_ITS ---
PROCEDURE INFORMATION: Exam: XR Chest Exam date and time: 06/08/2024 10:22 PM Age: 63 years old Clinical indication: Pain; Shortness of breath; Chest pressure; Additional info: Chest pain TECHNIQUE: Imaging protocol: Radiologic exam of the chest. Views: 1 view. COMPARISON: CT chest con [id number] 05/28/2024 9:17 AM FINDINGS: Lungs: There is volume loss involving the left hemithorax with mediastinal shift. The right lung is hyperinflated, but clear. Pleural spaces: A small left pleural effusion suspected. Heart/Mediastinum: The heart is not well evaluated on this exam secondary to volume loss. Vasculature: Calcific plaque involves the thoracic aorta. Bones/joints: Unremarkable. XR/XR chest 1V portable [id number] IMPRESSION: Volume loss involving the left hemithorax similar in appearance when compared to reference study.
--- NOTE | 2024-06-08 21:45 | ECG_ITS ---
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 Measurements Intervals [place] Rate: 68 P: 84 [place]: 163 QRS: 94 QRSD: 93 T: 95 QT: 361 QTc: 385 Interpretive Statements SINUS RHYTHM POSSIBLE LEFT ATRIAL ENLARGEMENT [-0.1mV P-WAVE IN V1/V2] BORDERLINE RIGHT AXIS DEVIATION [QRS AXIS > 90] POSSIBLE LEFT VENTRICULAR HYPERTROPHY [VOLTAGE CRITERIA PLUS LAE OR QRS WIDENING] NONSPECIFIC T-WAVE ABNORMALITY Compared to ECG 05/23/2024 14:07:43 T-wave abnormality now present Supraventricular rhythm no longer present ST (T wave) deviation no longer present Electronically Signed On 06-09-2024 17:00:29 [employer] by Ras Arroyo M.D. [email or web address]
--- NOTE | 2024-06-08 21:48 | W.ED.CHESTPA ---
HPI - Chest Pain General: Chief Complaint: Chest Pain Stated Complaint: Pain in back and Chest Time Seen by Provider: 06/08/24 21:41 History of Present Illness: 63-year-old man with a history of COPD, tobacco dependence, and recently diagnosed lung cancer who has been receiving radiation therapy and says he has a recent diagnosis of a pneumonia. He presents emergency room by ambulance with chest pain. He reports a pleuritic chest pain that hurts into his back. He is not requiring any oxygen. Sats are in the low 90s on room air. He is on 3 L nasal cannula at home. Related Data Previous Rx's Medication Instructions Recorded oxycodone 5 mg tablet 5 mg PO Q6H PRN pain (scale score 05/28/24 7-10) 14 days #30 tabs sennosides 8.6 mg-docusate sodium 1 tab-cap PO BID PRN constipation 05/28/24 50 mg tablet (Senna with Docusate #20 tabs Sodium) tiotropium 2.5 mcg-olodaterol 2.5 2 inh inhalation DAILY #4 grams 05/28/24 mcg/actuation mist for inhalation (Stiolto Respimat) albuterol sulfate 90 mcg/actuation 2 puff inhalation Q4H PRN 06/05/24 aerosol inhaler (Ventolin HFA) shortness of breath or wheezing #8.5 grams doxycycline hyclate 100 mg capsule 100 mg PO BID 7 days #14 caps 06/08/24 oxycodone 5 mg tablet 5 mg PO Q8H PRN pain #20 tabs 06/08/24 polyethylene glycol 3350 17 17 g PO DAILY #510 grams 06/08/24 gram/dose oral powder (Miralax) prednisone 20 mg tablet 60 mg (3 x 20 mg) PO DAILY #20 tabs 06/08/24 Allergies Allergy/AdvReac Type Severity Reaction Status Date / Time No Known Allergies Allergy Verified 05/04/24 14:06 Review of Systems Narrative: Constitutional symptoms: Negative except as documented in HPI. Skin symptoms: Negative except as documented in HPI. Eye symptoms: Negative except as documented in HPI. ENMT symptoms: Negative except as documented in HPI. Respiratory symptoms: Negative except as documented in HPI. Cardiovascular symptoms: Negative except as documented in HPI. Gastrointestinal symptoms: Negative except as documented in HPI. Genitourinary symptoms: Negative except as documented in HPI. Musculoskeletal symptoms: Negative except as documented in HPI. Neurologic symptoms: Negative except as documented in HPI. Psychiatric symptoms: Negative except as documented in HPI. Endocrine symptoms: Negative except as documented in HPI. [facility] ED PFSH: Medical History Abnormal CT lung screening Lung nodule seen on imaging study Smoker unmotivated to quit Started age 13 1/2 to 1 ppd PUD (peptic ulcer disease) COPD (chronic obstructive pulmonary disease) Surgical History H/O hernia repair Ventral Social History Smoking and tobacco/nicotine status: current every day tobacco/nicotine user cigarettes Packs smoked per day: 0.5 Alcohol intake: never Substance/Drug Use: current Substance/Drug use frequency: few times a week Physical Exam Narrative: EXAM NARRATIVE: General: Alert, no acute distress. Skin: Warm, dry. Head: Normocephalic, atraumatic. Neck: Supple, trachea midline. Eye: Extraocular movements are intact. Ears, nose, mouth and throat: mucosa moist. Cardiovascular: Regular, Normal peripheral perfusion. Respiratory: Diminished breath sounds on the left, scattered wheeze on the right Gastrointestinal: Soft, Nontender, Non distended Musculoskeletal: Normal ROM, no deformity. Neurological: Alert and oriented, No focal neurological deficit observed. Psychiatric: Cooperative, patient is angry at all times. He yells at nurses. Course Vital Signs: Vital signs: Vital Signs Temperature 98.8 F 06/08/24 21:40 Pulse Rate 73 06/08/24 23:58 Respiratory Rate 20 H 06/08/24 23:58 Blood Pressure 103/66 06/08/24 23:58 Pulse Oximetry 94 06/08/24 23:58 Oxygen Delivery Me thod Nasal Cannula 06/08/24 23:09 Oxygen Flow Rate 3 06/08/24 23:09 MDM - Chest Pain Medical Decision Making Differential diagnosis for patient with chest pain includes but is not limited to and based on the above HPI, review of systems and physical exam: Pneumonia. unstable angina. angina. Acute coronary syndrome / NV. Pulmonary embolism. Costochondritis / musculoskeletal. Pleurisy. Pericarditis. Esophageal spasm. Pancreatis. Cholecystitis. Orders placed to evaluate differential diagnosis based on the above differential, HPI and physical exam EKG: Time 2144. Rate 68. Normal sinus rhythm, No ST-T changes, no ectopy, normal CA & QRS intervals, This was reviewed and interpreted by myself the ER physician at 2150 Chest x-ray: Basically baldomero out left chest. This is similar to previous chest x-ray. This was reviewed and interpreted by myself the emergency room physician. I also reviewed the radiology report. Lab Review: Laboratory results were reviewed and interpreted by myself the emergency room physician. No leukocytosis. No anemia. No renal failure. I reviewed the patient's medical record. Reexamination: Patient remained stable. No increased work of breathing. No altered mental status. No focal motor deficits. Wheezes improved some. Pain is improved. Assessment and plan: Noncardiac chest pain COPD with acute exacerbation ?IV Dilaudid, IV Zofran, IV doxycycline and IV Solu-Medrol. 2 updrafts. - Discharged home - Discussed plan with patient. Answered any questions. - Evaluation and treatment of this problem were appropriate in the emergency setting. Lab Data 06/08/24 21:56 06/08/24 21:56 Radiology Impressions Chest X-Ray 06/08/24 21:44 IMPRESSION: Volume loss involving the left hemithorax similar in appearance when compared to reference study. Laboratory Results WBC 4.62 10^3/uL (3.29-11.43) 06/08/24 21:56 RBC 4.08 10^6/uL (3.85-5.65) 06/08/24 21:56 Hgb 13.40 g/dL (11.27-16.99) 06/08/24 21:56 Hct 40.1 % (37-53) 06/08/24 21:56 MCV 98.3 fl (82-101) 06/08/24 21:56 MCH 32.8 pg (27-33) 06/08/24 21:56 MCHC 33.4 g/dL (30-55) 06/08/24 21:56 RDW 12.6 % (12.1-15.1) 06/08/24 21:56 Plt Count 167 10^3/cmm (157-399) 06/08/24 21:56 MPV 9.4 fL (7.4-10.4) 06/08/24 21:56 Neut % (Auto) 62.4 % 06/08/24 21:56 Lymph % (Auto) 22.3 % 06/08/24 21:56 Traill % (Auto) 12.8 % 06/08/24 21:56 Eos % (Auto) 1.9 % 06/08/24 21:56 Baso % (Auto) 0.4 % 06/08/24 21:56 Neut # (Auto) 2.88 10^3/uL (1.8-7.7) 06/08/24 21:56 Lymph # (Auto) 1.0 10^3/uL (0.8-4.8) 06/08/24 21:56 Traill # (Auto) 0.6 10^3/uL (0.2-0.9) 06/08/24 21:56 Eos # (Auto) 0.1 10^3/uL (0.0-0.8) 06/08/24 21:56 Baso # (Auto) 0.0 10^3/uL (0.0-0.1) 06/08/24 21:56 Nucleated RBC % (auto) 0 % 06/08/24 21:56 Nucleated RBCs # 0.0 /100WBC 06/08/24 21:56 Sodium 140 mmol/L (136-145) 06/08/24 21:56 Potassium 4.0 mmol/L (3.5-5.1) 06/08/24 21:56 Chloride 102 mmol/L (98-107) 06/08/24 21:56 Carbon Dioxide 29 mmol/L (22-29) 06/08/24 21:56 Anion Gap 13.0 (5-19) 06/08/24 21:56 BUN 16 mg/dL (8-23) 06/08/24 21:56 Creatinine 1.2 mg/dL (0.7-1.2) 06/08/24 21:56 GFR Calculation 60.8 mL/min (90-130) L 06/08/24 21:56 Glucose 106 mg/dL (65-115) 06/08/24 21:56 Calculated Osmolality 292 mOsm/kg (285-295) 06/08/24 21:56 Lactic Acid 1.0 mmol/L (0.5-2.2) 06/08/24 21:56 Calcium 8.8 mg/dL (8.5-10.5) 06/08/24 21:56 Total Bilirubin 0.2 mg/dL (0.15-1.2) 06/08/24 21:56 AST 25 U/L (0-40) 06/08/24 21:56 ALT 23 U/L (0-41) 06/08/24 21:56 Alkaline Phosphatase 59 U/L (40-130) 06/08/24 21:56 Troponin T Baseline 13 ng/L (0-15) 06/08/24 21:56 Troponin T 120 Minute 12.28 ng/L (0-15) 06/08/24 23:24 Delta Troponin T -0.72 ABS# (0-10) L 06/08/24 23:24 C-Reactive Protein 3.0 mg/L (0.0-4.9) 06/08/24 21:56 Total Protein 6.2 g/dL (6.6-8.7) L 06/08/24 21:56 Albumin 3.7 g/dL (3.5-5.2) 06/08/24 21:56 Globulin 2.5 g/dL (1.3-4.6) 06/08/24 21:56 All radiology interpretation(s) finalized by discharge Discharge Plan Discharge Patient Disposition: Home Clinical Impression: Non-cardiac chest pain, Lung cancer, COPD with acute exacerbation, Tobacco dependence Condition: Stable Prescriptions: New doxycycline hyclate 100 mg capsule 100 mg PO BID 7 Days Qty: 14 0RF prednisone 20 mg tablet 60 mg PO DAILY Qty: 20 0RF Rx Instructions: 3 tabs (60 mg) x 3 days. 2 tabs (40 mg) x 3 days. 1 tab (20 mg) x 3 days. 1/2 tab (10 mg) x 4 days polyethylene glycol 3350 [Miralax] 17 gram/dose powder 17 g PO DAILY Qty: 510 0RF Rx Instructions: Take 1 scoop daily while taking pain medications. oxycodone 5 mg tablet 5 mg PO Q8H PRN (Reason: pain) Qty: 20 0RF No Action albuterol sulfate [Ventolin HFA] 90 mcg/actuation HFA aerosol inhaler 2 puff inhalation Q4H PRN (Reason: shortness of breath or wheezing) Qty: 8.5 0RF Stiolto Respimat 2.5-2.5 mcg/actuation mist 2 inh inhalation DAILY Qty: 4 1RF sennosides-docusate sodium [Senna with Docusate Sodium] 8.6-50 mg tablet 1 tab-cap PO BID PRN (Reason: constipation) Qty: 20 0RF oxycodone 5 mg tablet 5 mg PO Q6H PRN (Reason: pain (scale score 7-10)) 14 Days Qty: 30 0RF Discharge Orders: Discharge ED (Routine); Ordered 06/08/24 Ordered By: Tiffany Rios Referrals: Felix Sheppard MD [Physician] - Discharge Diet: Usual diet Discharge Activity: Increase activity as tolerated Patient Instructions: COPD (Chronic Obstructive Pulmonary Disease) (ED), Opioid Safety, Pain Management Activity Restrictions/Additional Instructions: Thank you for choosing [facility] for your healthcare needs today. Please realize this is an emergency room and that we are providing you with a medical screening exam and this may not be complete and all inclusive of all the testing and or work up that you may need to determine your ailment or severity of your illness. You have been screened and evaluated and felt safe for discharge. Health conditions do change or evolve sometimes and as such it is important that you follow up with your Primary Doctor to be re checked, 3-5 days is a general good time frame for follow up. You are always welcome to return to the ED for re assessment if your symptoms are worsening or you have new concerns Coding Level of Care Code ED Demolition Expert for [facility]
[2024-06-08 22:07] LABS: Basophils % 0.4 %; Eosinophils # 0.1 10^3/uL (0.0-0.8); Eosinophils % 1.9 %; Hematocrit 40.1 % (37-53); Lymphocytes % 22.3 %; Mean Corpuscular HGB Conc 33.4 g/dL (30-55); Mean Corpuscular Hemoglobin 32.8 pg (27-33); Mean Corpuscular Volume 98.3 fl (82-101); Mean Platelet Volume 9.4 fL (7.4-10.4); Monocytes # 0.6 10^3/uL (0.2-0.9); Monocytes % 12.8 %; Neutrophils # 2.88 10^3/uL (1.8-7.7); Neutrophils % 62.4 %; Nucleated Red Blood Cells % 0 %; Platelet Count 167 10^3/cmm (157-399); Red Blood Count 4.08 10^6/uL (3.85-5.65); Red Cell Distribution Width 12.6 % (12.1-15.1); White Blood Count 4.62 10^3/uL (3.29-11.43)
[2024-06-08] MEDS: doxycycline 100 MG in sodium chloride 0.9% (plus) 100 ML IV (22:17)
[2024-06-08] MEDS: methylPREDNISolone sod succ 125 mg/2 mL INJ IVP (22:21)
[2024-06-08] MEDS: HYDROmorphone 1 mg/mL INJ 1 mL IVP (22:21)
[2024-06-08] MEDS: ondansetron 2 mg/ML SDV 2 mL 4 MG IVP (22:21)
[2024-06-08 22:25] LABS: Troponin(5th) Baseline 13 ng/L (0-15)
[2024-06-08 22:28] LABS: Alanine Aminotransferase 23 U/L (0-41); Albumin Level 3.7 g/dL (3.5-5.2); Alkaline Phosphatase 59 U/L (40-130); Chloride 102 mmol/L (98-107); Sodium 140 mmol/L (136-145)
[2024-06-08] MEDS: albuterol 2.5 mg/3 mL Neb INHALATION (22:31)
[2024-06-08 22:42] LABS: Aspartate Amino Transferase 25 U/L (0-40); Blood Urea Nitrogen 16 mg/dL (8-23); Calcium 8.8 mg/dL (8.5-10.5); Carbon Dioxide 29 mmol/L (22-29); Creatinine Clr Calc Pharmacy 57.6747; Globulin 2.5 g/dL (1.3-4.6); Glomerular Filtration Rate 60.8 mL/min (90-130); Glucose 106 mg/dL (65-115); Osmolality Calculated 292 mOsm/kg (285-295); Total Bilirubin 0.2 mg/dL (0.15-1.2); Total Protein 6.2 g/dL (6.6-8.7)
[2024-06-08 23:50] LABS: Troponin 5 2HR 12.28 ng/L (0-15); Troponin 5 2HR Delta -0.72 ABS# (0-10)
--- NOTE | 2024-06-08 23:56 | PC.NURSE ---
PT D/C WITHOUT O2. TALKED WITH PROVIDER ABOUT PT, PT STATED THAT HE ONLY USES OXYGEN AT HOME, NOT WHEN HE WAS OUT. PROVIDER VERBALIZED THAT HE WAS FINE WITH PT BEING D/C WITHOUT O2.
== END 2024-06-09 | disposition home or self-care (01) ==
PROVIDERS: Emergency Provider Emergency Medicine
DX: R07.89 Other chest pain (principal); J44.1 Chronic obstructive pulmonary disease with (acute) exacerbation; C34.90 Malignant neoplasm of unspecified part of unspecified bronchus or lung; F17.210 Nicotine dependence, cigarettes, uncomplicated
CPT/HCPCS: 36415; 71045; 80053; 83605; 84484; 85025; 86140; 87040; 93005; 94640; 96365; 96375; 99285; J1171; J2405; J2919; J3490; J7613

== ENCOUNTER 2024-06-27 14:20 | Oncology outpatient (recurring) (ONCR) | payer MEDICAID, SELFPAY ==
--- NOTE | 2024-06-22 13:37 | N.ONRAD NP_ITS ---
[facility] Oncology New Patient Visit Patient: Fran Davidson MR#: [id number] : 1960> Age: 63> Sex: Male> Dictated by: Dr. 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 Chief Complaint / History of Present Illness: Patient is a 63-year-old gentleman who had began to have troubles with symptoms related to bronchitis and pneumonia for at least a year prior to his diagnosis. He was treated several times for pneumonia. When he finally went to the emergency room with increasing shortness of breath and pain he was found to have a mass in the lung as well. The mass had grown to the point where it had blocked off his left airway.it also caused a shift of his mediastinal structures to the left. At the time of his bronchoscopy on May 25 biopsy was obtained. It was positive for malignant cells. Repeat biopsy showed moderately differentiated squamous cell carcinoma. And he ended up having laser treatments done and a stent placed. He was scheduled to begin his radiation and chemotherapy but realized that driving back and forth would be detrimental to his overall health. He subsequently at his request been referred to his local radiation center which is less than a mile from his house. His PET scan showed the left hilar mass which measured 4.1 x 3.6 cm in size as well as shotty adenopathy of the aortic arch and mediastinum. He is scheduled to begin combined therapy with carbo [place] and Paxil Taxol weekly. Current Medications: - Last Reconciled 06/22/24 by Hernán Gamez albuterol sulfate 90 mcg/actuation (Ventolin HFA) 2 puffs inhalation Q4H PRN ibuprofen 200 mg PO Q6H PRN oxycodone 5 mg PO Q8H PRN polyethylene glycol 3350 (Miralax) 17 grams PO DAILY prednisone 60 mg (3 x 20 mg) PO DAILY sennosides-docusate sodium 8.6-50 mg (Senna with Docusate Sodium) 1 tab-cap PO BID PRN tiotropium-olodaterol 2.5-2.5 mcg/actuation (Stiolto Respimat) 2 inhalations inhalation DAILY Allergies: No Known Allergies Medical History: Reviewed 06/22/24 @ 08:29 by Hernán Gamez) Abnormal CT lung screening Lung nodule seen on imaging study Smoker unmotivated to quit Started age 13 1/2 to 1 ppd PUD (peptic ulcer disease) COPD (chronic obstructive pulmonary disease) Surgical History: H/O hernia repair Ventral Family History: Social History: Smoking and tobacco/nicotine status: light tobacco/nicotine user cigarettes Packs smoked per day: 0.5 Alcohol intake: never Substance/Drug Use: current Substance/Drug use frequency: few times a week Current Complaints / Review of Systems: . Vital Signs: Performed on 06/22/2024 11:14 AM BMI - 23.416 kg/m2 (high), Height - 68 in, Weight - 154 lbs, Temperature - 98.3 f, Pulse - 88 /min, Respiration - 19 /min, O2 Sat - 93 % (low), Pain - 7, Fatigue - 0 and BP - 111/ 72 mm(hg). Physical Exam: General: Patient is in no apparent distress. He is alone today. HEENT: Normocephalic atraumatic. Pupils are equal, sclera clear, extraocular muscles intact Pulmonary: Respiratory rate is regular and nonlabored. Cardiovascular: Regular rate and rhythm Abdomen: Patient is quite thin with minimal adipose tissue Extremities: No obvious edema or lymphedema noted Neurological: Alert and orient x 3. Gait and speech within normal limits Psych: Affect appropriate for current situation Performance Status: 90 Pathology: Impression: Stage III squamous of carcinoma of the lung Plan: I reviewed with the patient that we would need to proceed with simulation. We would be able to use the planning that he had done at a different center. He verbalized understanding of this. At this point we will get him scheduled for simulation so that we ready to start his chemotherapy and radiation combined sometime next week. I reviewed with him the risks and side effects of the treatment. We talked about the toxicity both acute and long-term. This point he had no additional questions or concerns. He is anxious to get started. This point we will plan a 6-week course of chemoradiation. Signed by: 06/22/2024 1:35:29 PM <<Signature on File>> Time spent on patient:45 CPT Code: CPT Code:
[2024-06-23 11:05] LABS: Basophils % 0.5 %; Eosinophils # 0.2 10^3/uL (0.0-0.8); Eosinophils % 3.8 %; Hematocrit 41.2 % (37-53); Lymphocytes # 1.5 10^3/uL (0.8-4.8); Lymphocytes % 25.6 %; Mean Corpuscular HGB Conc 32.8 g/dL (30-55); Mean Corpuscular Hemoglobin 31.3 pg (27-33); Mean Corpuscular Volume 95.6 fl (82-101); Mean Platelet Volume 9.4 fL (7.4-10.4); Monocytes # 0.6 10^3/uL (0.2-0.9); Monocytes % 9.5 %; Neutrophils # 3.51 10^3/uL (1.8-7.7); Neutrophils % 60.4 %; Nucleated Red Blood Cells % 0 %; Platelet Count 258 10^3/cmm (157-399); Red Blood Count 4.31 10^6/uL (3.85-5.65); Red Cell Distribution Width 12.1 % (12.1-15.1); White Blood Count 5.81 10^3/uL (3.29-11.43)
[2024-06-23 11:08] LABS: Erythrocyte Sedimentation Rate 4 mm/hr (0-10)
[2024-06-23 11:26] LABS: Alanine Aminotransferase 22 U/L (0-41); Albumin Level 3.6 g/dL (3.5-5.2); Alkaline Phosphatase 68 U/L (40-130); Anion Gap 11.5 (5-19); Aspartate Amino Transferase 22 U/L (0-40); Blood Urea Nitrogen 13 mg/dL (8-23); Carbon Dioxide 32 mmol/L (22-29); Chloride 94 mmol/L (98-107); Creatinine Clr Calc Pharmacy 89.8193; Glucose 130 mg/dL (65-115); Lactate Dehydrogenase 167 U/L (135-225); Osmolality Calculated 280 mOsm/kg (285-295); Potassium 3.5 mmol/L (3.5-5.1); Sodium 134 mmol/L (136-145); Total Bilirubin 0.4 mg/dL (0.15-1.2); Total Protein 6.6 g/dL (6.6-8.7)
== END 2024-06-30 23:59 | disposition home or self-care (01) ==
PROVIDERS: Internal Medicine; Visit Provider Radiology Radiation Oncology
DX: Z51.0 Encounter for antineoplastic radiation therapy (principal); C34.32 Malignant neoplasm of lower lobe, left bronchus or lung
CPT/HCPCS: 36415; 77300; 77301; 77334; 77338; 77470; 80053; 83615; 85025; 85651; 99204; 99205

== ENCOUNTER → 2024-06-29 06:32 | Day surgery (SDC) | payer MEDICAID, SELFPAY ==
[2024-06-29 06:42] VITALS: BMI 22.5
[2024-06-29 06:46] VITALS: BP 116/76; PULSE 82; RESP 18; TEMP 36.7; O2SAT 93
--- NOTE | 2024-06-29 06:53 | PC.NURSE ---
surgery cancelled for today per anesthesia and Dr. Lloyd because pt stated he drank a can of insure this morning at 530am.
--- NOTE | 2024-06-29 07:11 | W.PM.OPSUD ---
Surgery/Procedure H&P Update DATE OF PROCEDURE: June 29, 2024 DATE H&P PERFORMED: 06/23/24 H&P UPDATE INFORMATION: I have reviewed H&P completed within last 30 days, I have examined patient prior to procedure and No changes to prior documentation PLANNED PROCEDURE: Operation Date: 06/29/24 08:05 Proposed Procedures p Portacath Placement(Not Applicable) - Guillermo Lloyd DO
== END ==
LOC: OR 06:33
PROVIDERS: Visit Provider Surgery
DX: C34.32 Malignant neoplasm of lower lobe, left bronchus or lung (principal); Z53.8 Procedure and treatment not carried out for other reasons
CPT/HCPCS: J2250; J2704; J3010

== ENCOUNTER 2024-07-04 06:41 | Day surgery (SDC) | payer MEDICAID, SELFPAY ==
[2024-07-04] VITALS (7 sets, daily range): BP systolic 122–138; BP diastolic 78–86; PULSE 66–87; RESP 16–22; TEMP 36.6–36.8; O2SAT 90–100; BMI 23.7
--- NOTE | 2024-07-04 07:01 | SC_ITS ---
WS: [id number] C-ARM RADIOGRAPHS CHEST; 2 IMAGES HISTORY: Mediport placement COMPARISON: None available. RIGHT subclavian Mediport placement with tip of the catheter overlying the SVC atrial junction. SC/C-arm FL for CVA [id number] IMPRESSION: Intraoperative imaging during RIGHT Mediport placement.
--- NOTE | 2024-07-04 07:01 | XRR_ITS ---
PROCEDURE INFORMATION: Exam: XR Chest Exam date and time: 07/04/2024 8:52 AM Age: 63 years old Clinical indication: Device placement; Other: Postop mediport placement; Prior surgery; Surgery date: Post-operative (0-2 days) TECHNIQUE: Imaging protocol: Radiologic exam of the chest. Views: 1 view. COMPARISON: 1. CR (CHEST, ) 06/08/2024 10:[address] chest con [id number] 05/28/2024 9:17 AM FINDINGS: Tubes, catheters and devices: Port-A-Cath terminates in the mid SVC. Airway: Leftward tracheal deviation and bowing redemonstrated. Lungs: Cut off in the mid left mainstem bronchus compatible with endobronchial occlusion. Complete whiteout of the left lung with volume loss. Hyperinflation of the right lung which is otherwise clear. Pleural spaces: Negative for pneumothorax. Heart/Mediastinum: Leftward mediastinal deviation redemonstrated. Cardiomediastinal silhouette is limited in evaluation. Bones/joints: Unremarkable. XR/XR chest 1V portable [id number] IMPRESSION: 1. Unremarkable tunneled Port-A-Cath placement. 2. Total collapse of the left lung with left mainstem bronchus obstruction.
--- NOTE | 2024-07-04 07:04 | ANES.PREANE2 ---
Pre-Anesthetic Assessment Height/Weight: Height 1.73 m Operation Date: 07/04/24 08:25 Proposed Procedures p Portacath Placement(Not Applicable) - Guillermo Lloyd DO Familial anesthetic complications: None Was Beta Olaf taken within 24 hours: N/A Was Clonidine taken within 24 hours: N/A Last intake: > 8 hrs Social Tobacco and No alcohol Exam alert, oriented x 3, clear to auscultation bilaterally and regular rate & rhythm Airway Mallampati: Class II Dentition: full Pulmonary Chronic Obstructive Pulmonary Disease Lung cancer, recent pneumonia Baseline O2 sat on room air - low 90s Wears 3 L NC at home Anesthetic Plan ASA status: 4 Anesthesia: MAC Risk of > 500 ml blood loss (7ml/kg in children): No Medications/Allergies Home Medications ?Medication ?Instructions ?Recorded ?Confirmed ?Last Taken ?Type albuterol sulfate 90 mcg/actuation 2 puff inhalation Q4H PRN 06/05/24 07/03/24 07/01/24 Rx aerosol inhaler (Ventolin HFA) shortness of breath or wheezing #8.5 grams lorazepam 1 mg tablet 0.5 - 1 mg (0.5 - 1 x 1 mg) PO Q6H 06/22/24 07/03/24 06/27/24 Rx PRN severe nausea #30 tabs prochlorperazine maleate 10 mg 10 mg PO Q4H PRN mild nausea #30 06/22/24 07/03/24 Unknown Rx tablet (Compazine) tabs nicotine 21 mg/24 hr daily 1 patch transdermal DAILY tob 06/26/24 07/03/24 07/03/24 Rx transdermal patch dependence #28 ea oxycodone 10 mg tablet 10 mg PO Q6H PRN pain 30 days #120 06/27/24 07/03/24 07/04/24 Rx tabs Allergies Allergy/AdvReac Type Severity Reaction Status Date / Time No Known Allergies Allergy Verified 06/28/24 13:29 [facility] Anesthesia Medical History Abnormal CT lung screening Lung nodule seen on imaging study Smoker unmotivated to quit Started age 13 1/2 to 1 ppd PUD (peptic ulcer disease) COPD (chronic obstructive pulmonary disease) Surgical History H/O hernia repair Ventral Social History Smoking and tobacco/nicotine status: light tobacco/nicotine user cigarettes Packs smoked per day: 0.5 Alcohol intake: never Substance/Drug Use: current Substance/Drug use frequency: few times a week Data Anesthesia Cardiac Studies: No Data to Display
[2024-07-04] MEDS: sodium chloride 0.9% 1,000 ML 30 ML IV (07:14)
[2024-07-04] MEDS: albuterol 2.5 mg/3 mL Neb INHALATION (07:16)
[2024-07-04] MEDS: ceFAZolin 2,000 mg SDV 2000 MG IVP (07:57)
[2024-07-04] MEDS: lidocaine-epi 2% PF 1:200,000 20 mL SDV XX (08:16)
[2024-07-04] MEDS: heparin, porcine 1,000 unit/mL INJ 10 mL 10000 UNIT INJECTION (08:16)
--- NOTE | 2024-07-04 08:39 | PM.OP ---
Operative Report Date of procedure: July 04, 2024 Surgeon: Guillermo Lloyd DO Procedure: Pre-op diagnosis: lung cancer Post-op diagnosis: same Procedure done: Mediport placement Intraoperative interpretation of fluoroscopy Implants: PowerPort Specimens removed/disposition: None Surgeon: Guillermo Lloyd DO Anesthesia: MAC and Local Estimated blood loss (mL): 5 Complications: None apparent Procedure: The patient was taken to the operating room and placed supine on the operating room table. All bony prominences were padded. She was given IV sedation and monitored throughout the case by the anesthesia personnel. SCDs were placed and turned on. The arms were tucked to the side. Patient received Ancef 2 g preoperatively IV. The bilateral chest wall was prepped and draped in usual sterile fashion using chlorhexidine base prep. Sterile drapes were applied. We did procedure pause prior to beginning. An 18 gauge needle was placed in the right subclavian vein. Dark, nonpulsatile blood was aspirated. A guidewire was placed through the needle centrally toward the atrial/vena caval junction. Fluoroscopy visualized good placement. The needle was removed and the guidewire was clipped to the drape with a hemostat. Further local anesthetic was infiltrated in the soft tissues of the right chest wall and a #15 blade was used to make a horizontal skin incision. A subcutaneous Mediport pocket was created using Bovie cautery, dissecting down through the skin and subcutaneous tissues. Meticulous hemostasis was achieved. The Mediport was sutured in position using 3-0 vicryl suture x2 stitches. A #15 blade was used to make a small skin jermain around the guidewire insertion area. The Mediport tubing was tunneled through the subcutaneous tissues up to the needle insertion location. A dilator with a peel-away sheath was placed over the guidewire and placed centrally. After measuring the Mediport tubing was cut to length so that the tip would end at the atrial/vena caval junction. The inner cannula and the guidewire were removed, leaving the dilator sheath in place. The Mediport was flushed. The tip of the catheter was inserted through the peel-away sheath and the peel-away sheath removed in the standard fashion. The Mediport was accessed with a straight Humphreys needle and dark, nonpulsatile blood was aspirated and flushed using heparinized saline to hep-lock the Mediport. Final fluoroscopy visualization showed no kink in the catheter and the tip of the Mediport tubing near the atrial/vena caval junction. There is no obvious pneumothorax. Both skin incisions were thoroughly irrigated and suctioned dry. Meticulous hemostasis noted. The dermis was approximated with 3-0 Vicryl in an interrupted fashion. Skin was closed with Dermabond. Patient was awakened from anesthesia and transferred via her cart to the recovery room in stable condition. All needle, sponge, and instrument counts were correct per the operating personnel x2 counts.
--- NOTE | 2024-07-04 10:05 | ANE.PACU2 ---
Inpatient post-anesthesia follow up: Airway intact: Yes Vital signs: Temperature 98.2 F Pulse Rate 69 Respiratory Rate 17 Blood Pressure 128/78 Pulse Oximetry 93 Oxygen Delivery Me thod Room Air Oxygen Flow Rate 8 Fraction of Inspir ed Oxygen Hydration adequate: Yes Nausea and vomiting: No Pain level: 1 Mental status: Baseline
== END 2024-07-04 10:05 | disposition home or self-care (01) ==
PROVIDERS: Visit Provider Surgery
DX: C34.92 Malignant neoplasm of unspecified part of left bronchus or lung (principal); J44.9 Chronic obstructive pulmonary disease, unspecified; F17.210 Nicotine dependence, cigarettes, uncomplicated; Z79.899 Other long term (current) drug therapy
CPT/HCPCS: 71045; 77001; C1788; J0690; J1644; J2704; J7030; J7613

== ENCOUNTER 2024-07-10 04:53 | Emergency (ER) | payer MEDICAID, SELFPAY ==
[2024-07-10 05:08] VITALS: BP 102/66; PULSE 88; RESP 18; TEMP 36.8; O2SAT 94; BMI 23.1
--- NOTE | 2024-07-10 06:01 | XRR_ITS ---
PROCEDURE INFORMATION: Exam: XR Chest Exam date and time: 07/10/2024 6:10 AM Age: 63 years old Clinical indication: Abdominal pain; Generalized; Other: N/a; Prior surgery; Surgery date: 1-6 months; Surgery type: Chest port. Hernia mesh; C/O abd pain with constipation. Currently on radiation therapy for lung cancer. ; Additional info: Abd pain/constipation TECHNIQUE: Imaging protocol: Radiologic exam of the chest. Views: 1 view. COMPARISON: CR XR chest 1V portable [id number] 07/04/2024 8:52 AM FINDINGS: Tubes, catheters and devices: Stable infusion port enters from the right and terminates in the SVC. Lungs: See Heart/Mediastinum finding. Pleural spaces: Unremarkable. No pleural effusion. No pneumothorax. Heart/Mediastinum: Stable opacified left hemithorax with shift of the heart and mediastinum towards that side. Abrupt cutoff of the left main bronchus indicating either occlusion or pneumonectomy. Bones/joints: Unremarkable. PROCEDURE INFORMATION: Exam: XR Abdomen Exam date and time: 07/10/2024 6:10 AM Age: 63 years old Clinical indication: Abdominal pain; Generalized; Other: N/a; Prior surgery; Surgery date: 1-6 months; Surgery type: Chest port. Hernia mesh; C/O abd pain with constipation. Currently on radiation therapy for lung cancer. ; Additional info: Abd pain/constipation TECHNIQUE: Imaging protocol: Radiologic exam of the abdomen. Views: 2 Views. Upright and supine views. COMPARISON: CT abdomen pelvis w con* [id number] 04/17/2022 12:32 PM FINDINGS: Gastrointestinal tract: Gas within nondistended loops of colon and small bowel are nonspecific in appearance. Elevated left hemidiaphragm. Intraperitoneal space: Normal. No free air. Bones/joints: Unremarkable for age. XR/XR acute abdomen series [id number] IMPRESSION: No significant change. Stable opacity of the left hemithorax. IMPRESSION: Nonspecific.
--- NOTE | 2024-07-10 06:01 | ED_ITS ---
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 Patient has a history of COPD [id number] smoker. Cancer was initially a finding made in the emergency room. Patient was transferred to [facility] evaluated for stent placement could not do so. He is currently on chemotherapy. He said problems with constipation. Presents this morning with primary complaint of the constipation due to his opioid medications. He was seen on July 05 in the oncology clinic. Associated Symptoms: Reports bloating, constipation and GI cramping; Denies chills, dysuria and fever(s) Related Data Previous Rx's ?Medication ?Instructions ?Recorded albuterol sulfate 90 mcg/actuation 2 puff inhalation Q 4H PRN 06/05/24 aerosol inhaler (Ventolin HFA) shortness of breath or wheezing #8.5 grams lorazepam 1 mg tablet 0.5 - 1 mg (0.5 - 1 x 1 mg) PO Q6H 06/22/24 Held on 07/04/24. PRN severe nausea #30 tabs Instructions: Resume on 07/05/24. prochlorperazine maleate 10 mg 10 mg PO Q4H PRN mild n ausea #30 06/22/24 tablet (Compazine) tabs nicotine 21 mg/24 hr daily 1 patch transdermal DAILY t ob 06/26/24 transdermal patch dependence #28 ea oxycodone 10 mg tablet 10 mg PO Q6H PRN pain 30 day s #120 06/27/24 tabs lidocaine-prilocaine 2.5 %-2.5 % 1 applic topical .[employer] PLEX #30 grams 07/05/24 topical cream Allergies Allergy/AdvReac Type Severity Reaction Status Date / Time No Known Allergies Allergy Verified 07/05/24 08:42 Review of Systems Const: Denies: fever(s) or chills Card: Denies: chest pain Resp: Denies: dyspnea GI: Reports: abdominal pain, constipation, bloating and GI cramping : Denies: dysuria, urinary frequency or urinary urgency Musc: Denies: neck pain or back pain Skin/Breast: Denies: rash PFSH ED PFSH: Medical History Abnormal CT lung screening Lung nodule seen on imaging study Smoker unmotivated to quit Started age 13 1/2 to 1 ppd PUD (peptic ulcer disease) COPD (chronic obstructive pulmonary disease) Surgical History H/O hernia repair Ventral Social History Smoking and tobacco/nicotine status: light tobacco/nicotine user cigarettes Packs smoked per day: 0.5 Alcohol intake: never Substance/Drug Use: current Substance/Drug use frequency: few times a week Physical Exam Const: COMMON NORMALS: no acute distress GENERAL APPEARANCE: cooperative and comfortable ORIENTATION/CONSCIOUSNESS: Yes awake, Yes oriented to person, Yes oriented to place and Yes oriented to time HENMT: COMMON NORMALS: normocephalic, atraumatic and hearing grossly normal bilaterally HEAD & SCALP: normocephalic and atraumatic Resp: COMMON NORMALS: normal respiratory effort, No retractions and No use of accessory muscles AUSCULTATION: diminished lung sounds on the left (Upper lobe) Cardio: COMMON NORMALS: regular rate, regular rhythm and No murmurs present (Cardio) RATE: regular rate RHYTHM: regular rhythm GI: COMMON NORMALS: No hepatosplenomegaly present AUSCULTATION: Yes nor moactive bowel sounds PALPATION: Yes Tenderness to palpation present (GI) (Mild diffuse), No Guarding due to palpation present (GI) and Yes No hepatosplenomegaly present Extremity: COMMON NORMALS: normal to inspection, capillary refill normal, no clubbing, cyanosis or edema, no calf tenderness and no pedal edema Neuro: SENSORIUM/ORIENTATION: Yes oriented to person, Yes oriented to place and Yes oriented to time Skin: COMMON NORMALS: no rashes or lesions noted GENERAL SKIN EXAM: no rashes or lesions noted Course Vital Signs: Vital signs: Vital Signs Temperature 98.2 F 07/10/24 05:08 Pulse Rate 88 07/10/24 05:08 Respiratory Rate 18 07/10/24 05:08 Blood Pressure 102/66 07/10/24 05:08 Pulse Oximetry 94 07/10/24 05:08 Oxygen Delivery Me thod Room Air 07/10/24 05:08 MDM - Abdominal Pain Medical Decision Making Patient complaining constipation nonacute abdomen on exam. As previously had abdominal surgery. There is no sign of bowel obstruction based on clinical exam no abdominal distention bowel movements are normal. Mildly diffusely tender nothing focal. Plan was to treat the patient with mag citrate to relieve the immediate constipation started on MiraLAX patient was in vertical flow and left AMA while we are waiting on lab work. Medical Records I reviewed the patient's medical records. Lab Data I reviewed the patient's lab results. Labs/Radiology: Radiology Impressions Chest/Abdomen X-ray 07/10/24 06:01 IMPRESSION: No significant change. Stable opacity of the left hemithorax. IMPRESSION: Nonspecific. All radiology interpretation(s) finalized by discharge Discharge Plan Discharge Patient Disposition: Left Against Medical Advice Clinical Impression: Constipation Condition: Stable Prescriptions: No Action prochlorperazine maleate [Compazine] 10 mg tablet 10 mg PO Q4H PRN (Reason: mild nausea) Qty: 30 3RF lorazepam 1 mg tablet 0.5 - 1 mg PO Q6H PRN (Reason: severe nausea) Qty: 30 3RF oxycodone 10 mg tablet 10 mg PO Q6H PRN (Reason: pain) 30 Days Qty: 120 0RF lidocaine-prilocaine 2.5-2.5 % cream 1 applic topical .COMPLEX Qty: 30 2RF Rx Instructions: Apply quarter-size amount to port site 30 minutes prior to access; cover with cling wrap albuterol sulfate [Ventolin HFA] 90 mcg/actuation HFA aerosol inhaler 2 puff inhalation Q4H PRN (Reason: shortness of breath or wheezing) Qty: 8.5 0RF nicotine 21 mg/24 hr patch 24 hour 1 patch transdermal DAILY Qty: 28 1RF Print Language: Gambian Coding Level of Care Code ED Air Pollution Auditor for Afua Moncada
== END 2024-07-10 07:09 | disposition left against medical advice (07) ==
PROVIDERS: Emergency Provider Family Medicine
DX: K59.00 Constipation, unspecified (principal); F17.210 Nicotine dependence, cigarettes, uncomplicated; J44.9 Chronic obstructive pulmonary disease, unspecified; C34.02 Malignant neoplasm of left main bronchus
CPT/HCPCS: 74022; 99283

== ENCOUNTER 2024-07-20 11:37 | Emergency (ER) | payer MEDICAID, SELFPAY ==
--- NOTE | 2024-07-20 11:38 | XR_ITS ---
WS: [id number] Exam: XR chest 1V portable [id number] Date/Time of Exam: 07/20/2024 11:50 AM Reason For Exam: sob Comparison 07/10/2024. There is consolidation and atelectasis in the LEFT lower lobe. The RIGHT lung is clear. Probable mild cardiac enlargement. The mediastinum is normal in contour. RIGHT subclavian port ends in the lower one third of the SVC. Elevated LEFT diaphragm. XR/XR chest 1V portable [id number] IMPRESSION: 1. Consolidation and atelectasis in the LEFT lower lobe and LEFT basal pleural effusion. This shows improvement since the prior study. 2. Additional findings as noted above.
--- NOTE | 2024-07-20 11:42 | ECG_ITS ---
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 Measurements Intervals [place] Rate: 80 P: 76 ME: 140 QRS: 73 QRSD: 98 T: 62 QT: 320 QTc: 371 Interpretive Statements SINUS RHYTHM WITH SINUS ARRHYTHMIA VOLTAGE CRITERIA FOR LVH [MEETS CRITERIA IN ONE OF: R(aVL), S(V1), R(V5), R(V5/V6)+S(V1)] Compared to ECG 06/08/2024 21:45:52 T-wave abnormality no longer present Electronically Signed On 07-20-2024 17:50:31 SAP DEVELOPER by Rj Groves M.D. [id number]
--- NOTE | 2024-07-20 11:46 | CT_ITS ---
WS: [id number] CT CHEST ANGIOGRAPHY WITH REFORMATS HISTORY: sob TECHNIQUE: Contiguous axial images are obtained through the chest during arterial injection of intravenous contrast. Images are reconstructed to evaluate the pulmonary arteries. MIP imaging also reviewed. All CT scans at [facility] use at least one of these dose optimization techniques: automated exposure control; mA and/or kV adjustment per patient size (includes targeted exams where dose is matched to clinical indication); or iterative reconstruction. CONTRAST: Omnipaque 350; 100 mL IV. DLP: 232.43 mGy.cm COMPARISON: 05/28/2024, PET/CT 06/15/2024 Good opacification of the pulmonary artery. Main pulmonary arteries are slightly dilated. No pulmonary embolism is identified. Mild atherosclerosis aorta. Mild enlargement of the heart. Compared to the most recent study there has been improvement in the aeration of the LEFT lung with less volume loss and lobar collapse. Reidentified is a soft tissue mass centered at the LEFT hilum encasing the bronchovascular structures and narrowing the bronchial tree and pulmonary artery. Dense consolidation and atelectasis continues into the LEFT lower lobe. There is a small LEFT pleural effusion. Consolidation and opacification continues into the lingula and through the fissure. Reticular nodular opacifications surrounding the areas of dense consolidation. Paraseptal and centrilobular emphysema. Mild tree-in-bud airspace disease posterior RIGHT lung. Right-sided Mediport. Subcarinal and LEFT hilar lymphadenopathy. Smaller lymph nodes at the AP window near the aortic arch. Largest lymph node is 9 mm and was positive on the PET/CT. Visualized liver is negative for metastatic disease. Neither adrenal gland is well visualized. LEFT adrenal gland appears mildly thickened but was negative on a recent PET/CT. CT/CT angio chest PE protcl [id number] IMPRESSION: 1. No pulmonary embolism. 2. Improved aeration throughout the LEFT lung compared to 05/28/2024. Reidenti fied is the known LEFT hilar neoplastic mass encasing and narrowing the broncho vascular structures with postobstructive atelectasis. 3. Small LEFT pleural effusion. 4. Suspect subcarinal lymph nodes. No positive subcarinal lymph nodes on the r ecent PET/CT. No interval change in size of the 9 mm part PET/CT positive lymph node adjacent to the aorta.
--- NOTE | 2024-07-20 11:47 | ED_ITS ---
HPI - SOB/Dyspnea 2 General: Chief Complaint: Chest Pain Stated Complaint: cp, low o2 Time Seen by Provider: 07/20/24 11:40 Source: patient Mode of arrival: ambulatory Limitations: no limitations History of Present Illness: HPI Narrative: 63-year-old male has a history of lung c ancer longtime smoker he was over at oncology today and sent here for hypoxia his pulse ox was in the 70s over there he did not wear oxygen states has been having increasing shortness of breath some chest pain for the last 2 days. Does have COPD as well. He denies any vomiting or diarrhea. Denies any fever Associated symptoms: Reports chest pain; Deny abdominal pain, fever(s), nausea or vomiting Related Data Home Medications ?Medication ?Instructions ?Recorded ?Confirmed sennosides 8.6 mg-docusate sodium 1 tab PO PRN PRN Con stipation 07/20/24 07/20/24 50 mg tablet (Stimulant Laxative Plus) Previous Rx's ?Medication ?Instructions ?Recorded albuterol sulfate 90 mcg/actuation 2 puff inhalation Q 4H PRN 06/05/24 aerosol inhaler (Ventolin HFA) shortness of breath or wheezing #8.5 grams lorazepam 1 mg tablet 0.5 - 1 mg (0.5 - 1 x 1 mg) PO Q6H 06/22/24 Held on 07/04/24. PRN severe nausea #30 tabs Instructions: Resume on 07/05/24. prochlorperazine maleate 10 mg 10 mg PO Q4H PRN mild n ausea #30 06/22/24 tablet (Compazine) tabs nicotine 21 mg/24 hr daily 1 patch transdermal DAILY t ob 06/26/24 transdermal patch dependence #28 ea oxycodone 10 mg tablet 10 mg PO Q6H PRN pain 30 day s #120 06/27/24 tabs lidocaine-prilocaine 2.5 %-2.5 % 1 applic topical .[employer] PLEX #30 grams 07/05/24 topical cream polyethylene glycol 3350 17 4 g PO DAILY constipation #238 07/17/24 gram/dose oral powder (Miralax) grams Allergies Allergy/AdvReac Type Severity Reaction Status Date / Time No Known Allergies Allergy Verified 07/20/24 11:21 Review of Systems 2 Const: Denies: fever(s), chills, body aches or change in appetite ENMT: Denies: throat pain or dental pain Card: Reports: chest pain Resp: Reports: dyspnea GI: Denies: abdominal pain, nausea, vomiting or diarrhea : Denies: dysuria Musc: Denies: neck pain or back pain Skin/Breast: Denies: rash Neuro: Denies: headache(s) PFSH ED 2 PFSH: Medical History Abnormal CT lung screening Lung nodule seen on imaging study Smoker unmotivated to quit Started age 13 1/2 to 1 ppd PUD (peptic ulcer disease) COPD (chronic obstructive pulmonary disease) Surgical History H/O hernia repair Ventral Social History Smoking and tobacco/nicotine status: light tobacco/nicotine user cigarettes Packs smoked per day: 0.5 Alcohol intake: never Substance/Drug Use: current Substance/Drug use frequency: few times a week Physical Exam 2 Const: COMMON NORMALS: patient oriented x3 GENERAL APPEARANCE: in distress HENMT: COMMON NORMALS: normocephalic and atraumatic HEAD & SCALP: n ormocephalic and atraumatic Neck/C-Spine: COMMON NORMALS: full ROM and supple Chest: COMMONS NORMALS: normal inspection of the chest and normal palpation of entire chest wall Resp: COMMON NORMALS: No retractions and No use of accessory muscles EFFORT & INSPECTION: Yes respiratory distress AUSCULTATION: wheezes Cardio: COMMON NORMALS: regular rate, regular rhythm and No murmurs present (Cardio) RATE: regular rate RHYTHM: regular rhythm GI: COMMON NORMALS: Normal to inspection, nondistended, normoactive bowel sounds present, Soft to palpation, non-tender and no masses PALPATION: Yes Soft to palpation Extremity: COMMON NORMALS: normal to inspection and full ROM Neuro: COMMON NORMALS: patient oriented x3, moves all extremities and no focal motor deficits Psych: COMMON NORMALS: mental status grossly normal, Normal thought process present and cooperative THOUGHT PROCESS: Normal thought process present Skin: COMMON NORMALS: no rashes or lesions noted and no wounds GENERAL SKIN EXAM: no rashes or lesions noted Course 2 Vital Signs: Vital signs: Vital Signs Temperature 97.6 F 07/20/24 11:48 Pulse Rate 90 07/20/24 12:02 Respiratory Rate 18 07/20/24 12:02 Blood Pressure 124/79 07/20/24 11:48 Pulse Oximetry 96 07/20/24 12:18 Oxygen Delivery Me thod Nasal Cannula 07/20/24 12:18 Oxygen Flow Rate 4 07/20/24 12:18 MDM - SOB/Dyspnea Medical Decision Making Patient presents here with chest pain, shortness of breath after radiation treatment today CT scan shows no pneumonia or pulm embolism. Patient is still requiring oxygen here I strongly recommended admission he states he has oxygen at home if he needs it does not want to stay nurses spoke to him at length as well he has medical decision making capacity understands the risk and did sign out AGAINST MEDICAL ADVICE he is to follow-up with his oncologist return if he changes his mind he understands agrees to plan Medical Records I reviewed the patient's medical records. Lab Data I reviewed the patient's lab results. 07/20/24 12:02 07/20/24 12:02 Labs/Radiology: Radiology Impressions Chest X-Ray 07/20/24 11:38 IMPRESSION: 1. Consolidation and atelectasis in the LEFT lower lobe and LEFT basal pleural effusion. This shows improvement since the prior study. 2. Additional findings as noted above. Chest CTA 07/20/24 11:46 IMPRESSION: 1. No pulmonary embolism. 2. Improved aeration throughout the LEFT lung compared to 05/28/2024. Reidentified is the known LEFT hilar neoplastic mass encasing and narrowing the bronchovascular structures with postobstructive atelectasis. 3. Small LEFT pleural effusion. 4. Suspect subcarinal lymph nodes. No positive subcarinal lymph nodes on the recent PET/CT. No interval change in size of the 9 mm part PET/CT positive lymph node adjacent to the aorta. Laboratory Results WBC 5.96 10^3/uL (3.29-11.43) 07/20/24 12:02 RBC 3.69 10^6/uL (3.85-5.65) L 07/20/24 12:02 Hgb 11.40 g/dL (11.27-16.99) 07/20/24 12:02 Hct 34.5 % (37-53) L 07/20/24 12:02 MCV 93.5 fl (82-101) 07/20/24 12:02 MCH 30.9 pg (27-33) 07/20/24 12:02 MCHC 33.0 g/dL (30-55) 07/20/24 12:02 RDW 13.3 % (12.1-15.1) 07/20/24 12:02 Plt Count 152 10^3/cmm (157-399) L 07/20/24 12:02 MPV 9.0 fL (7.4-10.4) 07/20/24 12:02 Neut % (Auto) 78.7 % 07/20/24 12:02 Lymph % (Auto) 5.7 % 07/20/24 12:02 Wilkinson % (Auto) 14.6 % 07/20/24 12:02 Eos % (Auto) 0.2 % 07/20/24 12:02 Baso % (Auto) 0.3 % 07/20/24 12:02 Neut # (Auto) 4.69 10^3/uL (1.8-7.7) 07/20/24 12:02 Lymph # (Auto) 0.3 10^3/uL (0.8-4.8) L 07/20/24 12:02 Wilkinson # (Auto) 0.9 10^3/uL (0.2-0.9) 07/20/24 12:02 Eos # (Auto) 0.0 10^3/uL (0.0-0.8) 07/20/24 12:02 Baso # (Auto) 0.0 10^3/uL (0.0-0.1) 07/20/24 12:02 Nucleated RBC % (auto) 0 % 07/20/24 12:02 Nucleated RBCs # 0.0 /100WBC 07/20/24 12:02 PT 13.90 SECONDS (12.1-14.9) 07/20/24 12:02 INR 1.00 (0.8-1.2) 07/20/24 12:02 Specimen Type Arterial 07/20/24 12:04 Sample Site Radial, left 07/20/24 12:04 ABG pH 7.33 (7.35-7.45) L 07/20/24 12:04 ABG pCO2 50.9 mmHg (35-45) H 07/20/24 12:04 ABG pO2 61.2 mmHg (80.0-100.0) L 07/20/24 12:04 ABG HCO3 27.0 mmol/L (22-26) H 07/20/24 12:04 ABG O2 Saturation 90.4 07/20/24 12:04 ABG Base Excess 0.4 mmol/L (-2.0-2.0) 07/20/24 12:04 Mickey Test Pos 07/20/24 12:04 A-a O2 Gradient 3.8 mmHg (5-10) L 07/20/24 12:04 Hematocrit 35.9 % (42-52) L 07/20/24 12:04 Hgb O2 Saturation 87.7 % (95-100) L 07/20/24 12:04 Carboxyhemoglobin 2.2 %THgb (0.4-20.1) 07/20/24 12:04 Methemoglobin 0.8 % (0.4-1.5) 07/20/24 12:04 Total Hemoglobin 11.7 g/dL (14-18) L 07/20/24 12:04 Sodium 128.0 mmol/L (131-143) L 07/20/24 12:04 Potassium 4.3 mmol/L (3.5-5.0) 07/20/24 12:04 Glucose 107.0 mg/dL (70-115) 07/20/24 12:04 Ionized Calcium 1.2 mmol/L (1.1-1.4) 07/20/24 12:04 O2 Delivery Device Nc 07/20/24 12:04 O2 Liters/Min 4.0 % 07/20/24 12:04 Woodwork Salvage Inspector ID Anonymous 07/20/24 12:04 Sodium 130 mmol/L (136-145) L 07/20/24 12:02 Potassium 4.5 mmol/L (3.5-5.1) 07/20/24 12:02 Chloride 91 mmol/L (98-107) L 07/20/24 12:02 Carbon Dioxide 26 mmol/L (22-29) 07/20/24 12:02 Anion Gap 17.5 (5-19) 07/20/24 12:02 BUN 24 mg/dL (8-23) H 07/20/24 12:02 Creatinine 0.9 mg/dL (0.7-1.2) 07/20/24 12:02 GFR Calculation 84.7 mL/min (90-130) L 07/20/24 12:02 Glucose 106 mg/dL (65-115) 07/20/24 12:02 Calculated Osmolality 274 mOsm/kg (285-295) L 07/20/24 12:02 Calcium 8.7 mg/dL (8.5-10.5) 07/20/24 12:02 Total Bilirubin 0.4 mg/dL (0.15-1.2) 07/20/24 12:02 AST 17 U/L (0-40) 07/20/24 12:02 ALT 15 U/L (0-41) 07/20/24 12:02 Alkaline Phosphatase 42 U/L (40-130) 07/20/24 12:02 Troponin T Baseline 12 ng/L (0-15) 07/20/24 12:02 NT-Pro-B Natriuret Pep 246 pg/mL (0-125) H 07/20/24 12:02 Total Protein 6.6 g/dL (6.6-8.7) 07/20/24 12:02 Albumin 3.5 g/dL (3.5-5.2) 07/20/24 12:02 Globulin 3.1 g/dL (1.3-4.6) 07/20/24 12:02 Lipase 9 U/L (13-60) L 07/20/24 12:02 Influenza A (PCR) Negative (Negative) 07/20/24 12:17 Influenza Type B (PCR) Negative (Negative) 07/20/24 12:17 RSV (PCR) Negative (Negative) 07/20/24 12:17 SARS-CoV-2 (PCR) Negative (Negative) 07/20/24 12:17 All radiology interpretation(s) finalized by discharge EKG Data EKG 1: I personally reviewed and interpreted this EKG as follows: EKG Interpretation Date: 07/20/24 EKG interpretation time: 11:42 Interpretation: nsr hr [address] elevation qrs 98 qtc 356 Discharge Plan Discharge Patient Disposition: Left Against Medical Advice Clinical Impression: Chest pain, Shortness of breath Condition: Stable Prescriptions: No Action prochlorperazine maleate [Compazine] 10 mg tablet 10 mg PO Q4H PRN (Reason: mild nausea) Qty: 30 3RF lorazepam 1 mg tablet 0.5 - 1 mg PO Q6H PRN (Reason: severe nausea) Qty: 30 3RF oxycodone 10 mg tablet 10 mg PO Q6H PRN (Reason: pain) 30 Days Qty: 120 0RF lidocaine-prilocaine 2.5-2.5 % cream 1 applic topical .COMPLEX Qty: 30 2RF Rx Instructions: Apply quarter-size amount to port site 30 minutes prior to access; cover with cling wrap sennosides-docusate sodium [Stimulant Laxative Plus] 8.6-50 mg tablet 1 tab PO PRN PRN (Reason: Constipation) albuterol sulfate [Ventolin HFA] 90 mcg/actuation HFA aerosol inhaler 2 puff inhalation Q4H PRN (Reason: shortness of breath or wheezing) Qty: 8.5 0RF nicotine 21 mg/24 hr patch 24 hour 1 patch transdermal DAILY Qty: 28 1RF polyethylene glycol 3350 [Miralax] 17 gram/dose powder 4 g PO DAILY Qty: 238 3RF Print Language: Romanian Coding Level of Care Code ED Testboard Operator for Afua Moncada
[2024-07-20 11:48] VITALS: BP 124/79; PULSE 85; RESP 20; TEMP 36.4; O2SAT 70; BMI 23.1
[2024-07-20 12:02] VITALS: PULSE 90; RESP 18; O2SAT 97
--- NOTE | 2024-07-20 12:09 | ECG_ITS ---
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
[2024-07-20] MEDS: ipratropium-albuterol 3 mL Neb INHALATION (12:10)
[2024-07-20] MEDS: methylPREDNISolone sod succ 125 mg/2 mL INJ IVP (12:12)
[2024-07-20 12:15] LABS: ABG PCO2 50.9 mmHg (35-45); ABG PH Result 7.33 (7.35-7.45); Alveolar-Arterial Oxygen Gradi 3.8 mmHg (5-10); Arterial Blood Gas Hematocrit 35.9 % (42-52); Base Excess ABG 0.4 mmol/L (-2.0-2.0); Blood Gas Allen Test Pos; Blood Gas Operator Identificat Anonymous; Blood Gas Sample Site Radial, left; Blood Gas Sample Type Arterial; Carboxyhemoglobin 2.2 %THgb (0.4-20.1); HGB O2 Sat 87.7 % (95-100); Ionized Calcium Level - ABG 1.2 mmol/L (1.1-1.4); Methemoglobin 0.8 % (0.4-1.5); Oxygen Device NC; Oxygen Saturation ABG 90.4; PO2 ABG 61.2 mmHg (80.0-100.0); Potassium Level - ABG 4.3 mmol/L (3.5-5.0); Total Hemoglobin 11.7 g/dL (14-18)
[2024-07-20 12:16] LABS: Basophils % 0.3 %; Eosinophils % 0.2 %; Hematocrit 34.5 % (37-53); Lymphocytes # 0.3 10^3/uL (0.8-4.8); Lymphocytes % 5.7 %; Mean Corpuscular Hemoglobin 30.9 pg (27-33); Mean Corpuscular Volume 93.5 fl (82-101); Monocytes # 0.9 10^3/uL (0.2-0.9); Monocytes % 14.6 %; Neutrophils # 4.69 10^3/uL (1.8-7.7); Neutrophils % 78.7 %; Nucleated Red Blood Cells % 0 %; Platelet Count 152 10^3/cmm (157-399); Red Blood Count 3.69 10^6/uL (3.85-5.65); Red Cell Distribution Width 13.3 % (12.1-15.1); White Blood Count 5.96 10^3/uL (3.29-11.43)
[2024-07-20 12:18] VITALS: O2SAT 96
[2024-07-20 12:35] LABS: Troponin(5th) Baseline 12 ng/L (0-15)
[2024-07-20 12:51] LABS: Alanine Aminotransferase 15 U/L (0-41); Albumin Level 3.5 g/dL (3.5-5.2); Alkaline Phosphatase 42 U/L (40-130); Anion Gap 17.5 (5-19); Aspartate Amino Transferase 17 U/L (0-40); Blood Urea Nitrogen 24 mg/dL (8-23); Calcium 8.7 mg/dL (8.5-10.5); Carbon Dioxide 26 mmol/L (22-29); Chloride 91 mmol/L (98-107); Creatinine Clr Calc Pharmacy 79.4194; Globulin 3.1 g/dL (1.3-4.6); Glomerular Filtration Rate 84.7 mL/min (90-130); Glucose 106 mg/dL (65-115); Lipase 9 U/L (13-60); NT Pro B Type Natriuretic Pept 246 pg/mL (0-125); Osmolality Calculated 274 mOsm/kg (285-295); Potassium 4.5 mmol/L (3.5-5.1); Sodium 130 mmol/L (136-145); Total Bilirubin 0.4 mg/dL (0.15-1.2); Total Protein 6.6 g/dL (6.6-8.7)
[2024-07-20] MEDS: iohexol 350 mg/mL 500 mL Btl (per mL) IV (12:56)
[2024-07-20 13:06] LABS: Influenza A NEGATIVE (Negative); Influenza B NEGATIVE (Negative); Respiratory Syncytial Virus Ce NEGATIVE (Negative); SARS-CoV-2 PCR NEGATIVE (Negative)
--- NOTE | 2024-07-20 13:38 | ECG_ITS ---
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
== END 2024-07-20 14:26 | disposition left against medical advice (07) ==
PROVIDERS: Emergency Provider Emergency Medicine
DX: R07.9 Chest pain, unspecified (principal); R06.02 Shortness of breath; Z11.52 Encounter for screening for COVID-19; F17.210 Nicotine dependence, cigarettes, uncomplicated; J44.9 Chronic obstructive pulmonary disease, unspecified
CPT/HCPCS: 36415; 71045; 71275; 80051; 80053; 82330; 82805; 83690; 83880; 84484; 85025; 85610; 87637; 93005; 94640; 96374; 99285; J2919

== ENCOUNTER 2024-07-27 09:15 | Oncology outpatient (recurring) (ONCR) | payer MEDICAID, SELFPAY ==
[2024-07-05 08:38] LABS: Basophils % 0.5 %; Eosinophils # 0.3 10^3/uL (0.0-0.8); Eosinophils % 5.2 %; Hematocrit 38.8 % (37-53); Lymphocytes # 1.6 10^3/uL (0.8-4.8); Lymphocytes % 24.7 %; Mean Corpuscular Hemoglobin 31.8 pg (27-33); Mean Corpuscular Volume 96.5 fl (82-101); Mean Platelet Volume 9.4 fL (7.4-10.4); Monocytes # 0.7 10^3/uL (0.2-0.9); Monocytes % 10.6 %; Neutrophils # 3.84 10^3/uL (1.8-7.7); Neutrophils % 58.8 %; Nucleated Red Blood Cells % 0 %; Platelet Count 203 10^3/cmm (157-399); Red Blood Count 4.02 10^6/uL (3.85-5.65); Red Cell Distribution Width 12.3 % (12.1-15.1); White Blood Count 6.52 10^3/uL (3.29-11.43)
[2024-07-05 08:53] LABS: Alanine Aminotransferase 19 U/L (0-41); Albumin Level 3.5 g/dL (3.5-5.2); Alkaline Phosphatase 68 U/L (40-130); Anion Gap 11.5 (5-19); Aspartate Amino Transferase 23 U/L (0-40); Blood Urea Nitrogen 11 mg/dL (8-23); Calcium 8.4 mg/dL (8.5-10.5); Carbon Dioxide 27 mmol/L (22-29); Chloride 101 mmol/L (98-107); Creatinine Clr Calc Pharmacy 89.8193; Globulin 3.1 g/dL (1.3-4.6); Glomerular Filtration Rate 113.2 mL/min (90-130); Glucose 104 mg/dL (65-115); Lactate Dehydrogenase 184 U/L (135-225); Osmolality Calculated 280 mOsm/kg (285-295); Potassium 4.5 mmol/L (3.5-5.1); Sodium 135 mmol/L (136-145); Total Bilirubin 0.2 mg/dL (0.15-1.2); Total Protein 6.6 g/dL (6.6-8.7)
[2024-07-05] MEDS: sodium chloride 0.9% 250 ML 75 ML IV (10:38)
[2024-07-05] MEDS: diphenhydrAMINE 50 mg/mL SDV 1mL 25 MG IVP (10:38)
[2024-07-05] MEDS: acetaminophen 325 mg Tablet 650 MG PO (10:40)
[2024-07-05] MEDS: palonosetron 0.25 mg/5 mL SDV IVP (10:44)
[2024-07-05] MEDS: famotidine 20 mg/2 mL INJ IVP (10:47)
[2024-07-05 11:00] LABS: Erythrocyte Sedimentation Rate 5 mm/hr (0-10)
[2024-07-05] MEDS: dexamethasone 20 MG in sodium chloride 0.9% 50 ML 188 MG IV (11:09)
[2024-07-05] MEDS: PACLitaxeL 90 MG in sodium chloride 0.9%(non-DEHP) 250 ML 265 MG IV (12:24)
[2024-07-05] MEDS: CARBOplatin 260 MG in sodium chloride 0.9% 500 ML 526 MG IV (13:43)
[2024-07-05 15:10] VITALS: BP 136/73; PULSE 77; RESP 18; TEMP 36.8; O2SAT 94
--- NOTE | 2024-07-11 11:20 | ONCRAD TMN_ITS ---
Radiation Oncology Weekly Treatment Management Patient: Fran Davidson MR#: [id number] : 1960 Attending Physician: Dr. Maritza Queen Date of Service: 07/11/2024 Fractions: 5 out of 30 Referring Physician(s) : Diagnosis: C34.92 - Malignant neoplasm of unspecified part of left bronchus or lung, Diagnosed 06/22/2024 (Active) C77.1 - Secondary and unspecified malignant neoplasm of intrathoracic lymph nodes, Diagnosed 06/22/2024 (Active) Radiotherapy to date: Course: L lung, Treatment Site: LLung/mediastinum, Ref. ID: [id number], Energy: 6X, Dose/Fx (cGy): 200, #Fx: , Dose Correction (cGy): 0, Total Dose Delivered (cGy): 1,000, Start Date: 07/05/2024, Elapsed Days: 6 Reason for visit: The patient is being seen today as part of their regularly scheduled weekly on treatment visits to assess for acute toxicities from radiotherapy. Review of Systems: Patient has had some problems with constipation Vital Signs: Performed on 07/11/2024 11:02 AM BMI - 23.75 kg/m2 (high), Height - 68 in, Weight - 156.2 lbs, Temperature - 98 f, Pulse - 93 /min, Respiration - 18 /min, O2 Sat - 92 % (low), Pain - 0, Fatigue - 0 and BP - 97/ 65 mm(hg). Physical Exam: No changes on exam Imaging: Radiation therapy imaging related to accurate target localization (i.e. KV, MV and CBCT) was reviewed. Appropriate changes, if any, were made to ensure treatment accuracy. Plan: We talked about some different things he can use for constipation. He has lab today and chemotherapy tomorrow. Will continue with his treatments as planned. Signed by: Dr. Maritza Queen 07/11/2024 11:18:56 AM
[2024-07-12 09:33] LABS: Basophils % 0.6 %; Eosinophils # 0.2 10^3/uL (0.0-0.8); Eosinophils % 4.5 %; Hematocrit 38.2 % (37-53); Lymphocytes # 0.9 10^3/uL (0.8-4.8); Lymphocytes % 19.1 %; Mean Corpuscular HGB Conc 33.2 g/dL (30-55); Mean Corpuscular Hemoglobin 31.8 pg (27-33); Mean Corpuscular Volume 95.5 fl (82-101); Mean Platelet Volume 9.6 fL (7.4-10.4); Monocytes # 0.5 10^3/uL (0.2-0.9); Monocytes % 9.3 %; Neutrophils # 3.23 10^3/uL (1.8-7.7); Neutrophils % 65.5 %; Nucleated Red Blood Cells % 0 %; Platelet Count 179 10^3/cmm (157-399); Red Cell Distribution Width 12.2 % (12.1-15.1); White Blood Count 4.93 10^3/uL (3.29-11.43)
[2024-07-12 09:59] LABS: Alanine Aminotransferase 19 U/L (0-41); Albumin Level 3.5 g/dL (3.5-5.2); Alkaline Phosphatase 58 U/L (40-130); Anion Gap 9.5 (5-19); Aspartate Amino Transferase 19 U/L (0-40); Blood Urea Nitrogen 13 mg/dL (8-23); Calcium 8.7 mg/dL (8.5-10.5); Carbon Dioxide 31 mmol/L (22-29); Chloride 99 mmol/L (98-107); Creatinine Clr Calc Pharmacy 90.3656; Globulin 2.9 g/dL (1.3-4.6); Glomerular Filtration Rate 135.2 mL/min (90-130); Glucose 98 mg/dL (65-115); Osmolality Calculated 280 mOsm/kg (285-295); Potassium 4.5 mmol/L (3.5-5.1); Sodium 135 mmol/L (136-145); Total Bilirubin 0.4 mg/dL (0.15-1.2); Total Protein 6.4 g/dL (6.6-8.7)
[2024-07-12] MEDS: sodium chloride 0.9% 250 ML 75 ML IV (10:30)
[2024-07-12] MEDS: acetaminophen 325 mg Tablet 650 MG PO (10:30)
[2024-07-12] MEDS: diphenhydrAMINE 50 mg/mL SDV 1mL 25 MG IVP (10:33)
[2024-07-12] MEDS: palonosetron 0.25 mg/5 mL SDV IVP (10:38)
[2024-07-12] MEDS: famotidine 20 mg/2 mL INJ IVP (10:41)
[2024-07-12] MEDS: dexamethasone 20 MG in sodium chloride 0.9% 50 ML 188 MG IV (10:50)
[2024-07-12] MEDS: PACLitaxeL 90 MG in sodium chloride 0.9%(non-DEHP) 250 ML 265 MG IV (11:42)
[2024-07-12] MEDS: CARBOplatin 300 MG in sodium chloride 0.9% 500 ML 530 MG IV (12:57)
[2024-07-12 14:22] VITALS: BP 120/76; PULSE 74; RESP 18; TEMP 36.4; O2SAT 93
--- NOTE | 2024-07-18 11:12 | ONCRAD TMN_ITS ---
Radiation Oncology Weekly Treatment Management Patient: Stuart Peters> MR#: [id number] : 1960> Attending Physician: Dr. Maritza Queen Date of Service: 07/18/2024 Fractions: 9 out of 30 Referring Physician(s) : Diagnosis: C34.92 - Malignant neoplasm of unspecified part of left bronchus or lung, Diagnosed 06/22/2024 (Active) C77.1 - Secondary and unspecified malignant neoplasm of intrathoracic lymph nodes, Diagnosed 06/22/2024 (Active) Radiotherapy to date: Course: L lung. Treatment Site: LLung/mediastinum. Ref. ID: [id number], Energy: 6X, Dose/Fx (cGy): 200, #Fx: , Dose Correction (cGy): 0, Total Dose Delivered (cGy): 1,800, Start Date: 07/05/2024, Elapsed Days: 13 Reason for visit: The patient is being seen today as part of their regularly scheduled weekly on treatment visits to assess for acute toxicities from radiotherapy. Review of Systems: Patient has had good response to the mag citrate. I have asked him to go ahead and start the MiraLAX before next week. Vital Signs: Performed on 07/18/2024 10:48 AM BMI - 24.419 kg/m2 (high), Height - 68 in, Weight - 160.6 lbs, Temperature - 98.4 f, Pulse - 84 /min, Respiration - 17 /min, O2 Sat - 92 % (low), Pain - 0, Fatigue - 0 and BP - 118/ 69 mm(hg). Physical Exam: No changes on exam. He has no abdominal pain today. Imaging: Radiation therapy imaging related to accurate target localization (i.e. KV, MV and CBCT) was reviewed. Appropriate changes, if any, were made to ensure treatment accuracy. Plan: Will continue with his treatments as planned. Signed by: Dr. Maritza Queen 07/18/2024 11:10:05 AM
--- NOTE | 2024-07-25 11:00 | ONCRAD TMN_ITS ---
Radiation Oncology Weekly Treatment Management Patient: Fran Davidson MR#: [id number] : 1960 Attending Physician: Sen Moore Date of Service: 07/25/2024 Referring Physician(s) : Diagnosis: C34.92 - Malignant neoplasm of unspecified part of left bronchus or lung, Diagnosed 06/22/2024 (Active) C77.1 - Secondary and unspecified malignant neoplasm of intrathoracic lymph nodes, Diagnosed 06/22/2024 (Active) Radiotherapy to date: Course: L lung, Treatment Site: LLung/mediastinum, Ref. ID: [id number], Energy: 6X, Dose/Fx (cGy): 200, #Fx: , Dose Correction (cGy): 0, Total Dose Delivered (cGy): 2,400, Start Date: 07/05/2024, Elapsed Days: 20 Reason for visit: The patient is being seen today as part of their regularly scheduled weekly on treatment visits to assess for acute toxicities from radiotherapy. Patient is lost 8 pounds since consultation. Last week and most of it had a lot of close on as he was 160. Patient has chemotherapy on Wednesdays and does not bring his O2 from home as he states the appliance is having. Patient has had vision changes for 2 weeks and difficulty driving his car. Review of Systems: As above Vital Signs: Performed on 07/25/2024 10:04 AM BMI - 22.199 kg/m2, Height - 68 in, Weight - 146 lbs, Temperature - 99.8 f, Pulse - 107 /min (high), Respiration - 19 /min, O2 Sat - 88 % (low), Pain - 7, Fatigue - 0 and BP - 102/ 65 mm(hg). Physical Exam: Alert and oriented. Grossly normal visual acuity gait normal Imaging: Radiation therapy imaging related to accurate target localization (i.e. KV, MV and CBCT) was reviewed. Appropriate changes, if any, were made to ensure treatment accuracy. Plan: MRI of the head be ordered Chemotherapy tomorrow Have home oxygen company provide him with portable O2 Continue XRT. Signed by: Sen Moore 07/25/2024 10:58:50 AM
[2024-07-26 09:24] LABS: Basophils % 0.2 %; Eosinophils % 0.2 %; Hematocrit 33.1 % (37-53); Lymphocytes # 0.4 10^3/uL (0.8-4.8); Lymphocytes % 4.8 %; Mean Corpuscular HGB Conc 32.9 g/dL (30-55); Mean Corpuscular Hemoglobin 31.1 pg (27-33); Mean Corpuscular Volume 94.3 fl (82-101); Mean Platelet Volume 9.2 fL (7.4-10.4); Monocytes # 0.6 10^3/uL (0.2-0.9); Monocytes % 6.6 %; Neutrophils # 7.29 10^3/uL (1.8-7.7); Neutrophils % 87.6 %; Nucleated Red Blood Cells % 0 %; Platelet Count 134 10^3/cmm (157-399); Red Blood Count 3.51 10^6/uL (3.85-5.65); Red Cell Distribution Width 13.6 % (12.1-15.1); White Blood Count 8.33 10^3/uL (3.29-11.43)
[2024-07-26 09:44] LABS: Alanine Aminotransferase 15 U/L (0-41); Albumin Level 2.9 g/dL (3.5-5.2); Alkaline Phosphatase 47 U/L (40-130); Anion Gap 13.7 (5-19); Aspartate Amino Transferase 15 U/L (0-40); Blood Urea Nitrogen 19 mg/dL (8-23); Calcium 8.3 mg/dL (8.5-10.5); Carbon Dioxide 28 mmol/L (22-29); Chloride 95 mmol/L (98-107); Creatinine Clr Calc Pharmacy 89.5833; Globulin 3.5 g/dL (1.3-4.6); Glomerular Filtration Rate 113.2 mL/min (90-130); Glucose 163 mg/dL (65-115); Lactate Dehydrogenase 104 U/L (135-225); Osmolality Calculated 282 mOsm/kg (285-295); Potassium 3.7 mmol/L (3.5-5.1); Sodium 133 mmol/L (136-145); Total Bilirubin 0.5 mg/dL (0.15-1.2); Total Protein 6.4 g/dL (6.6-8.7)
[2024-07-26] MEDS: acetaminophen 325 mg Tablet 650 MG PO (11:03)
[2024-07-26] MEDS: sodium chloride 0.9% 250 ML 75 ML IV (11:04)
[2024-07-26] MEDS: diphenhydrAMINE 50 mg/mL SDV 1mL 25 MG IVP (11:08)
[2024-07-26] MEDS: famotidine 20 mg/2 mL INJ IVP (11:12)
[2024-07-26] MEDS: palonosetron 0.25 mg/5 mL SDV IVP (11:15)
[2024-07-26] MEDS: dexamethasone 20 MG in sodium chloride 0.9% 50 ML 188 MG IV (11:18)
[2024-07-26] MEDS: PACLitaxeL 90 MG in sodium chloride 0.9%(non-DEHP) 250 ML 265 MG IV (12:04)
[2024-07-26] MEDS: CARBOplatin 260 MG in sodium chloride 0.9% 500 ML 526 MG IV (13:15)
[2024-07-26 14:34] VITALS: BP 98/67; PULSE 74; TEMP 36.3; O2SAT 91
== END 2024-07-27 23:59 | disposition home or self-care (01) ==
PROVIDERS: Internal Medicine; Nurse Practitioner Family; Visit Provider Radiology Radiation Oncology
DX: Z51.0 Encounter for antineoplastic radiation therapy (principal); C34.32 Malignant neoplasm of lower lobe, left bronchus or lung
CPT/HCPCS: 77336; 77386; 80053; 83615; 85025; 85651; 96367; 96375; 96413; 96417; 99024; 99213; 99214; J1100; J1200; J2469; J3490; J7040; J7050; J9045; J9267

== ENCOUNTER 2024-07-28 09:23 | Oncology outpatient (recurring) (ONCR) | payer MEDICAID, SELFPAY | END 2024-07-28 23:59 | disposition home or self-care (01) | PROVIDERS: Visit Provider Radiology Radiation Oncology | DX: Z51.0 Encounter for antineoplastic radiation therapy (principal); C34.32 Malignant neoplasm of lower lobe, left bronchus or lung; Z53.9 Procedure and treatment not carried out, unspecified reason; Z51.11 Encounter for antineoplastic chemotherapy; Z79.899 Other long term (current) drug therapy; Z79.633 Long term (current) use of mitotic inhibitor; Z79.52 Long term (current) use of systemic steroids; F17.210 Nicotine dependence, cigarettes, uncomplicated; Z99.81 Dependence on supplemental oxygen; J43.1 Panlobular emphysema; D64.9 Anemia, unspecified; R41.0 Disorientation, unspecified; R07.9 Chest pain, unspecified; J96.21 Acute and chronic respiratory failure with hypoxia; R30.0 Dysuria; C77.1 Secondary and unspecified malignant neoplasm of intrathoracic lymph nodes; J98.11 Atelectasis; J98.09 Other diseases of bronchus, not elsewhere classified; Z72.0 Tobacco use; Z87.11 Personal history of peptic ulcer disease; Z98.890 Other specified postprocedural states | CPT/HCPCS: 77386 ==

== ENCOUNTER 2024-08-17 10:32 | Oncology outpatient (recurring) (ONCR) | payer MEDICAID, SELFPAY ==
--- NOTE | 2024-08-01 10:57 | ONCRAD TMN_ITS ---
Radiation Oncology Weekly Treatment Management Patient: Stuart Peters> MR#: [id number] : 1960> Attending Physician: Sen Moore Date of Service: 08/01/2024 Referring Physician(s) : Diagnosis: C34.92 - Malignant neoplasm of unspecified part of left bronchus or lung, Diagnosed 06/22/2024 (Active) C77.1 - Secondary and unspecified malignant neoplasm of intrathoracic lymph nodes, Diagnosed 06/22/2024 (Active) Radiotherapy to date: Course: L lung, Treatment Site: LLung/mediastinum, Ref. ID: [id number], Energy: 6X, Dose/Fx (cGy): 200, #Fx: , Dose Correction (cGy): 0, Total Dose Delivered (cGy): 3,400, Start Date: 07/05/2024, Elapsed Days: 27 Reason for visit: The patient is being seen today as part of their regularly scheduled weekly on treatment visits to assess for acute toxicities from radiotherapy. Review of Systems: Patient has gained 3 pounds since last visit but may relate to his clothing. He states he is eating well. Chemo tomorrow. He states he is his pain medicine refilled and next few days and got it from Dr. Montelongo. We asked him to check with MO tomorrow. Vital Signs: Performed on 08/01/2024 10:34 AM BMI - 22.716 kg/m2, Height - 68 in, Weight - 149.4 lbs, Temperature - 95.2 f, Pulse - 93 /min, Respiration - 18 /min, O2 Sat - 96 %, Pain - 6, Fatigue - 0 and BP - 119/ 74 mm(hg). Physical Exam: Alert and oriented and answers questions appropriately. Skin is dry. Poor hydration noted. Imaging: Radiation therapy imaging related to accurate target localization (i.e. KV, MV and CBCT) was reviewed. Appropriate changes, if any, were made to ensure treatment accuracy. Plan: Continue XRT Chemotherapy tomorrow. Increased hydration and calorie count signed by: Sen Moore 08/01/2024 10:55:51 AM
[2024-08-02 09:14] LABS: Basophils % 0.5 %; Eosinophils % 0.5 %; Hematocrit 30.9 % (37-53); Lymphocytes # 0.5 10^3/uL (0.8-4.8); Lymphocytes % 23.6 %; Mean Corpuscular HGB Conc 33.3 g/dL (30-55); Mean Corpuscular Hemoglobin 31.2 pg (27-33); Mean Corpuscular Volume 93.6 fl (82-101); Mean Platelet Volume 10.1 fL (7.4-10.4); Monocytes # 0.2 10^3/uL (0.2-0.9); Monocytes % 8.9 %; Neutrophils # 1.27 10^3/uL (1.8-7.7); Neutrophils % 66.5 %; Nucleated Red Blood Cells % 0 %; Platelet Count 67 10^3/cmm (157-399); Red Cell Distribution Width 14.3 % (12.1-15.1); White Blood Count 1.91 10^3/uL (3.29-11.43)
[2024-08-02 09:34] LABS: Alanine Aminotransferase 16 U/L (0-41); Alkaline Phosphatase 54 U/L (40-130); Anion Gap 13.3 (5-19); Aspartate Amino Transferase 17 U/L (0-40); Blood Urea Nitrogen 16 mg/dL (8-23); C Reactive Protein 8.9 mg/L (0.0-4.9); Calcium 8.3 mg/dL (8.5-10.5); Carbon Dioxide 27 mmol/L (22-29); Chloride 94 mmol/L (98-107); Ferritin 573 ng/mL (30-400); Globulin 2.9 g/dL (1.3-4.6); Glomerular Filtration Rate 113.2 mL/min (90-130); Glucose 89 mg/dL (65-115); Iron 45 ug/dL (59-158); Lactate Dehydrogenase 136 U/L (135-225); Osmolality Calculated 271 mOsm/kg (285-295); Percent Saturation 25.2 % (20-50); Potassium 4.3 mmol/L (3.5-5.1); Sodium 130 mmol/L (136-145); Total Bilirubin 0.4 mg/dL (0.15-1.2); Total Iron Binding Capacity 178 mcg/dl; Total Protein 5.9 g/dL (6.6-8.7); Unsaturated Iron Binding 133 ug/dL (112-347)
[2024-08-02 09:49] LABS: Vitamin B12 319 pg/mL (232-1245)
[2024-08-02 10:00] LABS: Folate Level 10.9 ng/mL (4.5-32.2)
--- NOTE | 2024-08-08 11:11 | ONCRAD TMN_ITS ---
Radiation Oncology Weekly Treatment Management Patient: Stuart Peters> MR#: [id number] : 1960> Attending Physician: Dr. Maritza Queen Date of Service: 08/08/2024 Fractions: 22 out of 30 Referring Physician(s) : Diagnosis: C34.92 - Malignant neoplasm of unspecified part of left bronchus or lung, Diagnosed 06/22/2024 (Active) C77.1 - Secondary and unspecified malignant neoplasm of intrathoracic lymph nodes, Diagnosed 06/22/2024 (Active) Radiotherapy to date: Course: L lung, Treatment Site: LLung/mediastinum, Ref. ID: [id number], Energy: 6X, Dose/Fx (cGy): 200, #Fx: , Dose Correction (cGy): 0, Total Dose Delivered (cGy): 4,400, Start Date: 07/05/2024, Elapsed Days: 34 Reason for visit: The patient is being seen today as part of their regularly scheduled weekly on treatment visits to assess for acute toxicities from radiotherapy. Review of Systems: Patient is having increasing discomfort in the epigastric area. Says when he drinks water his stomach hurts. His lower extremities remain swollen. He continues to have increasing shoulder pain as well. He has x-rays scheduled for tomorrow Vital Signs: Performed on 08/08/2024 10:50 AM BMI - 23.081 kg/m2 (high), Height - 68 in, Weight - 151.8 lbs, Temperature - 96.2 f, Pulse - 99 /min, Respiration - 18 /min, O2 Sat - 90 % (low), Pain - 6, Fatigue - 5 and BP - 114/ 74 mm(hg). Physical Exam: No real changes on exam. Imaging: Radiation therapy imaging related to accurate target localization (i.e. KV, MV and CBCT) was reviewed. Appropriate changes, if any, were made to ensure treatment accuracy. Plan: I talked to him today about IV fluids which he declined. We talked about getting something to help his stomach such as Pepcid or Prevacid. I reviewed his plan in the extent of the radiation laboy does not seem to cover the area where he is having issues. He has no trouble swallowing. His oxygen was only 90% and I encouraged him to wear his oxygen when he comes for treatment and at home. At this point he basically refused every and any intervention I wish to proceed with today. Will continue with his treatments as planned. Signed by: Dr. Maritza Queen 08/08/2024 11:09:23 AM
[2024-08-09 08:56] LABS: Basophils % 0.4 %; Eosinophils # 0.1 10^3/uL (0.0-0.8); Eosinophils % 1.9 %; Hematocrit 28.2 % (37-53); Lymphocytes # 0.9 10^3/uL (0.8-4.8); Lymphocytes % 33.1 %; Mean Corpuscular HGB Conc 33.3 g/dL (30-55); Mean Corpuscular Hemoglobin 31.2 pg (27-33); Mean Corpuscular Volume 93.7 fl (82-101); Mean Platelet Volume 9.2 fL (7.4-10.4); Monocytes # 0.4 10^3/uL (0.2-0.9); Monocytes % 13.9 %; Neutrophils # 1.34 10^3/uL (1.8-7.7); Neutrophils % 50.3 %; Nucleated Red Blood Cells % 0 %; Platelet Count 199 10^3/cmm (157-399); Red Blood Count 3.01 10^6/uL (3.85-5.65); Red Cell Distribution Width 17.1 % (12.1-15.1); White Blood Count 2.66 10^3/uL (3.29-11.43)
[2024-08-09 09:15] LABS: Alanine Aminotransferase 14 U/L (0-41); Albumin Level 2.9 g/dL (3.5-5.2); Alkaline Phosphatase 54 U/L (40-130); Anion Gap 10.8 (5-19); Aspartate Amino Transferase 17 U/L (0-40); Blood Urea Nitrogen 11 mg/dL (8-23); Carbon Dioxide 29 mmol/L (22-29); Chloride 94 mmol/L (98-107); Globulin 3.3 g/dL (1.3-4.6); Glucose 132 mg/dL (65-115); Lactate Dehydrogenase 151 U/L (135-225); Osmolality Calculated 271 mOsm/kg (285-295); Potassium 3.8 mmol/L (3.5-5.1); Sodium 130 mmol/L (136-145); Total Bilirubin 0.4 mg/dL (0.15-1.2); Total Protein 6.2 g/dL (6.6-8.7)
[2024-08-09] MEDS: sodium chloride 0.9% 250 ML 75 ML IV (10:25)
[2024-08-09] MEDS: diphenhydrAMINE 50 mg/mL SDV 1mL 25 MG IVP (10:27)
[2024-08-09] MEDS: acetaminophen 325 mg Tablet 650 MG PO (10:34)
[2024-08-09] MEDS: palonosetron 0.25 mg/5 mL SDV IVP (10:37)
[2024-08-09] MEDS: famotidine 20 mg/2 mL INJ IVP (10:41)
[2024-08-09] MEDS: dexamethasone 20 MG in sodium chloride 0.9% 50 ML 188 MG IV (10:43)
[2024-08-09] MEDS: sodium chloride 0.9% 1,000 ML 500 ML IV (10:49)
[2024-08-09] MEDS: PACLitaxeL 90 MG in sodium chloride 0.9%(non-DEHP) 250 ML 265 MG IV (11:47)
[2024-08-09] MEDS: CARBOplatin 230 MG in sodium chloride 0.9% 500 ML 523 MG IV (13:48)
[2024-08-09 15:10] VITALS: BP 122/77; PULSE 82; RESP 18; TEMP 36; O2SAT 90
--- NOTE | 2024-08-14 15:15 | USCV_ITS ---
Fran Davidson Age: 63 Gender: M : 1960 Exam Date: 08/14/2024 13:15 Ordering Phys: Maritza Queen MD Technologist: [facility] Exam Location: [place]_ Indication: edema HISTORY: Lower extremity edema. PROCEDURES: Venous duplex imaging was performed in only the left lower extremity. Serial compression, augmentation maneuvers, and spectral Doppler flow evaluation were performed. FINDINGS: No evidence of DVT seen in any vessel visualized at this time. CONCLUSIONS No evidence of left lower extremity DVT. Enlarged but normal appearing left common femoral lymph node Omid Trotter MD (Electronically Signed) Final Date: 14 August 2024 14:43 S
--- NOTE | 2024-08-15 08:23 | ONCRAD TMN_ITS ---
Radiation Oncology Weekly Treatment Management Patient: Stuart Peters> MR#: [id number] : 1960> Attending Physician: Dr. Maritza Queen Date of Service: 08/14/2024 Fractions: 26 out of 30 Referring Physician(s) : Diagnosis: C34.92 - Malignant neoplasm of unspecified part of left bronchus or lung, Diagnosed 06/22/2024 (Active) C77.1 - Secondary and unspecified malignant neoplasm of intrathoracic lymph nodes, Diagnosed 06/22/2024 (Active) Radiotherapy to date: Course: L lung, Treatment Site: LLung/mediastinum, Ref. ID: [id number], Energy: 6X, Dose/Fx (cGy): 200, #Fx: , Dose Correction (cGy): 0, Total Dose Delivered (cGy): 5,200, Start Date: 07/05/2024, Elapsed Days: 40 Reason for visit: The patient is being seen today as part of their regularly scheduled weekly on treatment visits to assess for acute toxicities from radiotherapy. Review of Systems: Patient says that the left lower extremity has been swollen for about 3 weeks. It is apparently swollen more than its ever been. Vital Signs: Physical Exam: On exam he has 1+ pitting edema in the left bojorquez and lower extremity. Imaging: Radiation therapy imaging related to accurate target localization (i.e. KV, MV and CBCT) was reviewed. Appropriate changes, if any, were made to ensure treatment accuracy. Plan: This point we will go ahead and get a Doppler to make sure he did not have blood clot. Will otherwise continue with his treatments as planned. Signed by: Dr. Maritza Queen 08/15/2024 8:21:08 AM
[2024-08-16 09:50] LABS: Basophils % 0.4 %; Eosinophils % 0.8 %; Hematocrit 30.4 % (37-53); Lymphocytes # 0.7 10^3/uL (0.8-4.8); Lymphocytes % 26.6 %; Mean Corpuscular HGB Conc 33.2 g/dL (30-55); Mean Corpuscular Hemoglobin 31.9 pg (27-33); Mean Corpuscular Volume 95.9 fl (82-101); Monocytes # 0.3 10^3/uL (0.2-0.9); Monocytes % 10.5 %; Neutrophils # 1.51 10^3/uL (1.8-7.7); Neutrophils % 60.9 %; Nucleated Red Blood Cells % 0 %; Platelet Count 215 10^3/cmm (157-399); Red Blood Count 3.17 10^6/uL (3.85-5.65); Red Cell Distribution Width 18.1 % (12.1-15.1); White Blood Count 2.48 10^3/uL (3.29-11.43)
[2024-08-16 10:11] LABS: Alanine Aminotransferase 16 U/L (0-41); Alkaline Phosphatase 52 U/L (40-130); Aspartate Amino Transferase 22 U/L (0-40); Blood Urea Nitrogen 10 mg/dL (8-23); Calcium 8.3 mg/dL (8.5-10.5); Carbon Dioxide 31 mmol/L (22-29); Chloride 94 mmol/L (98-107); Globulin 3.1 g/dL (1.3-4.6); Glomerular Filtration Rate 135.2 mL/min (90-130); Glucose 139 mg/dL (65-115); Lactate Dehydrogenase 166 U/L (135-225); Osmolality Calculated 275 mOsm/kg (285-295); Sodium 132 mmol/L (136-145); Total Bilirubin 0.4 mg/dL (0.15-1.2); Total Protein 6.1 g/dL (6.6-8.7)
[2024-08-16] MEDS: sodium chloride 0.9% 250 ML 75 ML IV (10:45)
[2024-08-16] MEDS: diphenhydrAMINE 50 mg/mL SDV 1mL 25 MG IVP (10:49)
[2024-08-16] MEDS: ipratropium-albuterol 3 mL Neb INHALATION (10:56)
[2024-08-16] MEDS: famotidine 20 mg/2 mL INJ IVP (11:00)
[2024-08-16] MEDS: acetaminophen 325 mg Tablet 650 MG PO (11:01)
[2024-08-16] MEDS: palonosetron 0.25 mg/5 mL SDV IVP (11:02)
[2024-08-16] MEDS: sodium chloride 0.9% 500 ML 250 ML IV (11:06)
[2024-08-16] MEDS: dexamethasone 20 MG in sodium chloride 0.9% 50 ML 188 MG IV (11:10)
[2024-08-16] MEDS: PACLitaxeL 90 MG in sodium chloride 0.9%(non-DEHP) 250 ML 265 MG IV (12:11)
[2024-08-16] MEDS: CARBOplatin 290 MG in sodium chloride 0.9% 500 ML 1058 MG IV (13:41)
[2024-08-16 13:58] LABS: Bilirubin Urine Negative (Negative); Blood Urine Negative (Negative); Glucose Urine UA Negative (Normal); Ketones Urine Negative (Negative); Leukocyte Esterase Urine Negative (Negative); Nitrate Urine Negative (Negative); Protein Urine Negative (Negative); Specific Gravity, Urine 1.008 (1.005-1.030); Urine Appearance Clear (CLEAR); Urine Color Yellow (Yellow)
[2024-08-16 14:01] LABS: Add Urine Microscopic? YES; Bacteria Urine None Seen /hpf; Hyaline Casts Urine 0-4 /lpf; RBC Urine 0-2 /hpf (0-2); Squamous Epithelial Cell Urine 0-5 /hpf (0-5); WBC Urine 0-5 /hpf (0-5)
[2024-08-16 15:19] VITALS: BP 127/75; PULSE 78; RESP 18; TEMP 36.7; O2SAT 93
== END 2024-08-17 23:59 | disposition home or self-care (01) ==
PROVIDERS: Internal Medicine; Nurse Practitioner Family; Visit Provider Radiology Radiation Oncology
DX: Z51.0 Encounter for antineoplastic radiation therapy (principal); C34.32 Malignant neoplasm of lower lobe, left bronchus or lung; C77.1 Secondary and unspecified malignant neoplasm of intrathoracic lymph nodes
CPT/HCPCS: 77336; 77386; 80053; 81001; 82607; 82728; 82746; 83540; 83550; 83615; 85025; 86140; 93971; 96365; 96367; 96375; 96413; 96417; 99024; 99213; 99214; J1100; J1200; J2469; J3490; J7030; J7040; J7050; J9045; J9267; J9999

== ENCOUNTER 2024-08-23 10:13 | Oncology outpatient (recurring) (ONCR) | payer MEDICAID, SELFPAY ==
--- NOTE | 2024-08-22 09:11 | N.ONRD TS_ITS ---
Radiation Oncology Treatment Summary Patient: Stuart>Aundrea MR#: [id number] : 1960> Age: 63> Sex: Male Dictated by: Dr. Maritza Queen Date of Service: 08/18/2024 Referring Physician(s) : Diagnosis: C34.92 - Malignant neoplasm of unspecified part of left bronchus or lung, Diagnosed 06/22/2024 (Active) C77.1 - Secondary and unspecified malignant neoplasm of intrathoracic lymph nodes, Diagnosed 06/22/2024 (Active) Radiotherapy to Date: Course: L lung, Treatment Site: LLung/mediastinum, Ref. ID: [id number], Energy: 6X, Dose/Fx (cGy): 200, #Fx: 30 / 30, Dose Correction (cGy): 0, Total Dose Delivered (cGy): 6,000, Start Date: 07/05/2024, End Date: 08/18/2024, Elapsed Days: 44 Clinical Summary: The patient tolerated RT well. Patient had continued problems with failure to thrive. He did not have any issues with swallowing. Plan: End of treatment today. Continue on the above medication until the skin reaction resolves. Follow up in one month. Signed by: Dr. Maritza Queen>08/22/2024 9:10:09 AM <<Signature on File>>
[2024-08-23 10:54] LABS: Basophils % 0.9 %; Eosinophils % 0.6 %; Hematocrit 30.8 % (37-53); Lymphocytes # 0.6 10^3/uL (0.8-4.8); Mean Corpuscular HGB Conc 33.4 g/dL (30-55); Mean Corpuscular Hemoglobin 32.1 pg (27-33); Mean Platelet Volume 9.1 fL (7.4-10.4); Monocytes # 0.6 10^3/uL (0.2-0.9); Monocytes % 18.2 %; Neutrophils # 2.07 10^3/uL (1.8-7.7); Nucleated Red Blood Cells % 0 %; Platelet Count 172 10^3/cmm (157-399); Red Blood Count 3.21 10^6/uL (3.85-5.65); Red Cell Distribution Width 19.9 % (12.1-15.1); White Blood Count 3.29 10^3/uL (3.29-11.43)
[2024-08-23 11:12] LABS: Alanine Aminotransferase 18 U/L (0-41); Albumin Level 3.3 g/dL (3.5-5.2); Alkaline Phosphatase 58 U/L (40-130); Anion Gap 12.1 (5-19); Aspartate Amino Transferase 20 U/L (0-40); Blood Urea Nitrogen 17 mg/dL (8-23); Calcium 8.4 mg/dL (8.5-10.5); Carbon Dioxide 27 mmol/L (22-29); Chloride 96 mmol/L (98-107); Globulin 3.2 g/dL (1.3-4.6); Glomerular Filtration Rate 166.9 mL/min (90-130); Glucose 91 mg/dL (65-115); Lactate Dehydrogenase 175 U/L (135-225); Osmolality Calculated 273 mOsm/kg (285-295); Potassium 4.1 mmol/L (3.5-5.1); Sodium 131 mmol/L (136-145); Total Bilirubin 0.3 mg/dL (0.15-1.2); Total Protein 6.5 g/dL (6.6-8.7)
[2024-08-23] MEDS: sodium chloride 0.9% 1,000 ML 500 ML IV (11:41)
[2024-08-23] MEDS: acetaminophen 325 mg Tablet 650 MG PO (11:43)
[2024-08-23] MEDS: palonosetron 0.25 mg/5 mL SDV IVP (11:45)
[2024-08-23] MEDS: famotidine 20 mg/2 mL INJ IVP (11:45)
[2024-08-23] MEDS: diphenhydrAMINE 50 mg/mL SDV 1mL 25 MG IVP (11:47)
[2024-08-23] MEDS: dexamethasone 20 MG in sodium chloride 0.9% 50 ML 188 MG IV (12:12)
[2024-08-23] MEDS: PACLitaxeL 90 MG in sodium chloride 0.9%(non-DEHP) 250 ML 265 MG IV (13:22)
[2024-08-23] MEDS: CARBOplatin 300 MG in sodium chloride 0.9% 500 ML 1060 MG IV (14:32)
[2024-08-23 15:55] VITALS: BP 155/95; PULSE 73; RESP 18; TEMP 36.3; O2SAT 93
== END 2024-08-28 23:59 | disposition home or self-care (01) ==
PROVIDERS: Visit Provider Internal Medicine
DX: Z53.9 Procedure and treatment not carried out, unspecified reason; Z51.0 Encounter for antineoplastic radiation therapy; Z51.11 Encounter for antineoplastic chemotherapy; C34.32 Malignant neoplasm of lower lobe, left bronchus or lung; C77.1 Secondary and unspecified malignant neoplasm of intrathoracic lymph nodes; Z79.899 Other long term (current) drug therapy; Z79.52 Long term (current) use of systemic steroids
CPT/HCPCS: 77336; 77386; 80053; 83615; 85025; 96365; 96367; 96375; 96413; 99024; 99213; J1100; J1200; J2469; J3490; J7030; J7040; J7050; J9045; J9267; J9999

== ENCOUNTER 2024-09-20 09:38 | Oncology outpatient (recurring) (ONCR) | payer MEDICAID, SELFPAY ==
[2024-09-11] MEDS: iohexol 350 mg/mL 500 mL Btl (per mL) PO (13:30)
--- NOTE | 2024-09-11 13:30 | CT_ITS ---
WS: [id number] CT CHEST, ABDOMEN AND PELVIS WITH CONTRAST HISTORY: lung cancer TECHNIQUE: Contiguous 5 mm axial imaging performed through the chest, abdomen and pelvis with IV contrast, oral contrast has been provided. Coronal and sagittal reformats chest. Coronal and sagittal reformats through the abdomen and pelvis. All CT scans at [facility] use at least one of these dose optimization techniques: automated exposure control; mA and/or kV adjustment per patient size (includes targeted exams where dose is matched to clinical indication); or iterative reconstruction. CONTRAST: Omnipaque 350; 100 mL IV. DLP: 534.10 mGy.cm COMPARISON: CT chest 07/20/2024, CT abdomen and pelvis 04/17/2022, PET/CT 06/15/[address]: Significant interval improvement in the LEFT hilar and LEFT lower lobe previously described. There is minimal remaining soft tissue measuring approximately 1.6 x 1.7 cm at the LEFT hilum. The postobstructive atelectasis is markedly improved. New atelectasis in the LEFT upper lobe and bronchial thickening. Encasement of the LEFT hilum and proximal LEFT upper and LEFT lower lobe bronchovascular structures. Greater bronchial wall encasement proximal LEFT upper lobe bronchus with resulting atelectasis. Paraseptal emphysema. No new or increasing size of mediastinal or hilar lymph nodes. PET/CT positive lymph node adjacent to the aorta has nearly completely resolved. Ectatic thoracic aorta. Slightly dilated pulmonary artery. Heart size is normal. No pericardial or pleural effusions. Small amount of debris in the distal esophagus from incomplete clearing. RIGHT subclavian Port-A-Cath. Abdomen CT: Normal size liver. Single indeterminate area of decreased attenuation measures 5 mm in the LEFT lobe. Normal portal vein. Normal spleen. Normal pancreas and RIGHT adrenal gland. Mild hyperplasia LEFT adrenal gland. No renal obstruction or mass. Negative gallbladder. Extensive atherosclerosis aorta. Mesenteric artery atherosclerosis. No obstruction. Bilateral iliac artery atherosclerotic disease. No GI tract obstruction. No colitis. No free fluid or ascites. Pelvic CT: Normally distended urinary bladder. No free fluid or ascites. Small inguinal lymph nodes. Sclerotic foci RIGHT hip were present on a prior CT from 04/17/2022. CT/CT chest abdpel w/*[id number] IMPRESSION: 1. Previously described neoplastic mass at the LEFT hilum has significantly de creased in size. Minimal residual soft tissue measures 1.6 x 1.7 cm at the LEFT hilum. Improved aeration LEFT lower lobe. 2. New postobstructive atelectasis LEFT upper lobe with LEFT upper lobe bronch ovascular thickening and narrowing resulting in the postobstructive atelectasis . Tumor extension along the LEFT upper lobe central bronchus is not excluded. T here has been improvement in the bronchovascular wall thickening since 5 but the atelectasis is new. 3. No mediastinal or hilar lymph nodes that are enlarged or hypervascular. 4. Single new focus of decreased attenuation LEFT lobe of the liver measures 5 mm. Early metastatic site is not excluded. No abnormality on the recent PET/CT in this location. 5. No ascites or adenopathy in the abdomen or pelvis. 6. Very mild hyperplasia LEFT adrenal gland.
[2024-09-11] MEDS: iohexol 350 mg/mL 500 mL Btl (per mL) IV (14:56)
[2024-09-20 09:51] LABS: Basophils % 0.3 %; Eosinophils # 0.1 10^3/uL (0.0-0.8); Eosinophils % 3.5 %; Hematocrit 35.9 % (37-53); Lymphocytes # 0.9 10^3/uL (0.8-4.8); Lymphocytes % 27.5 %; Mean Corpuscular HGB Conc 32.9 g/dL (30-55); Mean Corpuscular Hemoglobin 33.3 pg (27-33); Mean Corpuscular Volume 101.4 fl (82-101); Monocytes # 0.4 10^3/uL (0.2-0.9); Monocytes % 11.4 %; Nucleated Red Blood Cells % 0 %; Platelet Count 132 10^3/cmm (157-399); Red Blood Count 3.54 10^6/uL (3.85-5.65); Red Cell Distribution Width 18.8 % (12.1-15.1); White Blood Count 3.16 10^3/uL (3.29-11.43)
[2024-09-20 10:10] LABS: Alanine Aminotransferase 19 U/L (0-41); Albumin Level 3.5 g/dL (3.5-5.2); Alkaline Phosphatase 58 U/L (40-130); Aspartate Amino Transferase 26 U/L (0-40); Blood Urea Nitrogen 9 mg/dL (8-23); Calcium 8.6 mg/dL (8.5-10.5); Carbon Dioxide 30 mmol/L (22-29); Chloride 100 mmol/L (98-107); Globulin 3.7 g/dL (1.3-4.6); Glomerular Filtration Rate 135.2 mL/min (90-130); Glucose 120 mg/dL (65-115); Lactate Dehydrogenase 154 U/L (135-225); Osmolality Calculated 284 mOsm/kg (285-295); Sodium 137 mmol/L (136-145); Total Bilirubin 0.3 mg/dL (0.15-1.2); Total Protein 7.2 g/dL (6.6-8.7)
== END 2024-09-27 23:59 | disposition home or self-care (01) ==
PROVIDERS: Visit Provider Internal Medicine
DX: Z53.9 Procedure and treatment not carried out, unspecified reason; C34.32 Malignant neoplasm of lower lobe, left bronchus or lung; J43.1 Panlobular emphysema; D64.9 Anemia, unspecified; J44.9 Chronic obstructive pulmonary disease, unspecified; K76.9 Liver disease, unspecified; Z87.891 Personal history of nicotine dependence; Z79.899 Other long term (current) drug therapy; Z92.3 Personal history of irradiation; Z99.81 Dependence on supplemental oxygen
CPT/HCPCS: 36591; 71260; 74177; 80053; 83615; 85025; 99213

== ENCOUNTER 2024-10-26 10:00 | Oncology outpatient (recurring) (ONCR) | payer MEDICAID, SELFPAY ==
[2024-10-04 08:55] LABS: Basophils % 0.8 %; Eosinophils # 0.1 10^3/uL (0.0-0.8); Hematocrit 40.1 % (37-53); Lymphocytes # 1.1 10^3/uL (0.8-4.8); Mean Corpuscular HGB Conc 32.7 g/dL (30-55); Mean Corpuscular Hemoglobin 32.9 pg (27-33); Mean Corpuscular Volume 100.8 fl (82-101); Mean Platelet Volume 9.5 fL (7.4-10.4); Monocytes # 0.6 10^3/uL (0.2-0.9); Monocytes % 12.9 %; Neutrophils # 3.07 10^3/uL (1.8-7.7); Neutrophils % 63.1 %; Nucleated Red Blood Cells % 0 %; Platelet Count 209 10^3/cmm (157-399); Red Blood Count 3.98 10^6/uL (3.85-5.65); Red Cell Distribution Width 16.5 % (12.1-15.1); White Blood Count 4.87 10^3/uL (3.29-11.43)
[2024-10-04 09:04] LABS: Alanine Aminotransferase 19 U/L (0-41); Albumin Level 3.6 g/dL (3.5-5.2); Alkaline Phosphatase 62 U/L (40-130); Anion Gap 13.1 (5-19); Aspartate Amino Transferase 25 U/L (0-40); Blood Urea Nitrogen 9 mg/dL (8-23); Calcium 9.1 mg/dL (8.5-10.5); Carbon Dioxide 29 mmol/L (22-29); Chloride 97 mmol/L (98-107); Creatinine Clr Calc Pharmacy 88.8745; Globulin 4.2 g/dL (1.3-4.6); Glomerular Filtration Rate 135.2 mL/min (90-130); Glucose 95 mg/dL (65-115); Lactate Dehydrogenase 140 U/L (135-225); Osmolality Calculated 278 mOsm/kg (285-295); Potassium 4.1 mmol/L (3.5-5.1); Sodium 135 mmol/L (136-145); Total Bilirubin 0.4 mg/dL (0.15-1.2); Total Protein 7.8 g/dL (6.6-8.7)
[2024-10-12] MEDS: iohexol 350 mg/mL 500 mL Btl (per mL) PO (15:56)
[2024-10-12] MEDS: iohexol 350 mg/mL 500 mL Btl (per mL) IV (16:30)
--- NOTE | 2024-10-12 16:30 | CTR_ITS ---
PROCEDURE INFORMATION: Exam: CT Chest With Contrast; Diagnostic Exam date and time: 10/12/2024 4:28 PM Age: 63 years old Clinical indication: Localized; Left upper quadrant (luq); Other: Luq pain; Prior surgery; Surgery date: 6+ months; Surgery type: Port, hernia; Worsening luq abdominal pain since starting treatments, anoxeria, nausea; Additional info: Worsening luq abdominal pain, anoxeria, nausea TECHNIQUE: Imaging protocol: Diagnostic computed tomography of the chest with contrast. Radiation optimization: All CT scans at this facility use at least one of these dose optimization techniques: automated exposure control; mA and/or kV adjustment per patient size (includes targeted exams where dose is matched to clinical indication); or iterative reconstruction. Contrast material: OMNI 350; Contrast volume: 100 ml; Contrast route: INTRAVENOUS (IV); COMPARISON: CT chest vitopel w/*[id number] 09/11/2024 2:55 PM RADIATION DOSE METRICS: Total DLP (mGy-cm): 622.96 FINDINGS: Tubes, catheters and devices: Yessy catheter with port in the right anterior chest wall. Lungs: Left upper lobe and lingular multifocal consolidation is slightly increased. Wall thickening of the left-sided bronchi centrally is again noted. Moderate emphysema with scattered bulla. Pleural spaces: Unremarkable. No pneumothorax. No pleural effusion. Heart: Unremarkable. No cardiomegaly. No pericardial effusion. Lymph nodes: Unremarkable. No enlarged lymph nodes. Vasculature: Unremarkable. No aortic aneurysm. Bones/joints: Unremarkable. No acute fracture. Soft tissues: Unremarkable. COMMENTS: The presence of pulmonary emphysema on CT is an independent risk factor for lung cancer. In the absence of a history or active diagnosis of lung cancer, it is recommended that this patient with emphysema be evaluated for enrollment in a low dose CT lung cancer screening program. PROCEDURE INFORMATION: Exam: CT Abdomen And Pelvis With Contrast Exam date and time: 10/12/2024 4:28 PM Age: 63 years old Clinical indication: Localized; Left upper quadrant (luq); Other: Luq pain; Prior surgery; Surgery date: 6+ months; Surgery type: Port, hernia; Worsening luq abdominal pain since starting treatments, anoxeria, nausea; Additional info: Worsening luq abdominal pain, anoxeria, nausea TECHNIQUE: Imaging protocol: Computed tomography of the abdomen and pelvis with contrast. Radiation optimization: All CT scans at this facility use at least one of these dose optimization techniques: automated exposure control; mA and/or kV adjustment per patient size (includes targeted exams where dose is matched to clinical indication); or iterative reconstruction. Contrast material: OMNI 350; Contrast volume: 100 ml; Contrast route: INTRAVENOUS (IV); COMPARISON: CT chest abdpel w/*[id number] 09/11/2024 2:55 PM RADIATION DOSE METRICS: Total DLP (mGy-cm): 622.96 FINDINGS: Liver: Punctate low-density lesion in the left hepatic lobe is too small to characterize but without change. There are 2 low-density lesions in the right hepatic lobe inferiorly which are new measuring 1.5 and 1.1 cm respectively, concerning for metastatic disease. Gallbladder and biliary ducts: Normal. No calcified stones. No ductal dilation. Pancreas: Normal. No ductal dilation. Spleen: Normal. No splenomegaly. Adrenal glands: Minimal nodularity of the left adrenal gland without change. Kidneys and ureters: Normal. No hydronephrosis. Stomach and bowel: Unremarkable. No obstruction. No mucosal thickening. Appendix: No evidence of appendicitis. Intraperitoneal space: Unremarkable. No free air. No significant fluid collection. Vasculature: Diffuse arterial calcification. Lymph nodes: Unremarkable. No enlarged lymph nodes. Urinary bladder: Unremarkable as visualized. Reproductive: Unremarkable as visualized. Bones/joints: Unremarkable. No acute fracture. Soft tissues: Unremarkable. CT/CT chest abdpel w/*[id number] IMPRESSION: 1. Left upper lobe and lingular consolidation which is somewhat nodular and slightly increased. 2. Emphysema. IMPRESSION: Two new right hepatic lesions suspicious for metastatic disease.
[2024-10-18 13:51] LABS: Basophils % 0.3 %; Eosinophils # 0.1 10^3/uL (0.0-0.8); Eosinophils % 1.8 %; Hematocrit 38.7 % (37-53); Lymphocytes # 1.1 10^3/uL (0.8-4.8); Lymphocytes % 13.7 %; Mean Corpuscular Hemoglobin 32.6 pg (27-33); Mean Corpuscular Volume 101.8 fl (82-101); Mean Platelet Volume 9.2 fL (7.4-10.4); Monocytes % 13.4 %; Neutrophils # 5.47 10^3/uL (1.8-7.7); Neutrophils % 70.4 %; Nucleated Red Blood Cells % 0 %; Platelet Count 174 10^3/cmm (157-399); Red Cell Distribution Width 14.6 % (12.1-15.1); White Blood Count 7.76 10^3/uL (3.29-11.43)
[2024-10-18 14:08] LABS: Alanine Aminotransferase 16 U/L (0-41); Albumin Level 3.3 g/dL (3.5-5.2); Alkaline Phosphatase 61 U/L (40-130); Aspartate Amino Transferase 22 U/L (0-40); Blood Urea Nitrogen 13 mg/dL (8-23); Calcium 8.8 mg/dL (8.5-10.5); Carbon Dioxide 28 mmol/L (22-29); Chloride 97 mmol/L (98-107); Creatinine Clr Calc Pharmacy 88.3889; Globulin 4.1 g/dL (1.3-4.6); Glomerular Filtration Rate 96.7 mL/min (90-130); Glucose 107 mg/dL (65-115); Lactate Dehydrogenase 147 U/L (135-225); Osmolality Calculated 281 mOsm/kg (285-295); Sodium 135 mmol/L (136-145); Total Bilirubin 0.4 mg/dL (0.15-1.2); Total Protein 7.4 g/dL (6.6-8.7)
== END 2024-10-28 23:59 | disposition home or self-care (01) ==
PROVIDERS: Internal Medicine; Visit Provider Nurse Practitioner
DX: Z53.9 Procedure and treatment not carried out, unspecified reason (principal)
CPT/HCPCS: 36591; 71260; 74177; 80053; 83615; 85025; 99214; 99215

== ENCOUNTER 2024-11-22 09:48 | Oncology outpatient (recurring) (ONCR) | payer MEDICAID, SELFPAY ==
[2024-11-01 09:56] LABS: Basophils % 0.4 %; Eosinophils # 0.2 10^3/uL (0.0-0.8); Eosinophils % 2.8 %; Hematocrit 44.1 % (37-53); Lymphocytes % 15.3 %; Mean Corpuscular HGB Conc 33.1 g/dL (30-55); Mean Corpuscular Hemoglobin 32.3 pg (27-33); Mean Corpuscular Volume 97.6 fl (82-101); Mean Platelet Volume 10.1 fL (7.4-10.4); Monocytes # 0.7 10^3/uL (0.2-0.9); Monocytes % 9.9 %; Neutrophils # 4.85 10^3/uL (1.8-7.7); Neutrophils % 71.3 %; Nucleated Red Blood Cells % 0 %; Platelet Count 156 10^3/cmm (157-399); Red Blood Count 4.52 10^6/uL (3.85-5.65); Red Cell Distribution Width 13.3 % (12.1-15.1)
[2024-11-01 10:25] LABS: Alanine Aminotransferase 24 U/L (0-41); Alkaline Phosphatase 67 U/L (40-130); Anion Gap 15.4 (5-19); Aspartate Amino Transferase 32 U/L (0-40); Blood Urea Nitrogen 13 mg/dL (8-23); Calcium 9.4 mg/dL (8.5-10.5); Carbon Dioxide 27 mmol/L (22-29); Chloride 94 mmol/L (98-107); Globulin 4.4 g/dL (1.3-4.6); Glomerular Filtration Rate 96.7 mL/min (90-130); Glucose 94 mg/dL (65-115); Osmolality Calculated 274 mOsm/kg (285-295); Potassium 4.4 mmol/L (3.5-5.1); Sodium 132 mmol/L (136-145); Thyroid Stimulating Hormone 5.34 uIU/mL (0.27-4.20); Total Bilirubin 0.5 mg/dL (0.15-1.2); Total Protein 8.4 g/dL (6.6-8.7)
--- NOTE | 2024-11-02 08:30 | US_ITS ---
WS: [id number] RIGHT UPPER QUADRANT ULTRASOUND HISTORY: metastases to the liver COMPARISON: 08/02/2009, CT 10/12/2024 Liver: 14.5 cm in length. Liver is normal size. Recently described possible liver metastasis is not identified with certainty. The largest lesion along the RIGHT inferior lobe of the liver is not identified. There is a small hyperechoic focus in the liver which is most typical for a hemangioma. Hyperechoic focus measures 1.0 x 0.7 x 0.9 cm. No intrahepatic duct dilatation. Portal Vein: Normal hepatopetal flow with monophasic waveform. Gallbladder: Normally distended gallbladder with no stones or wall thickening. CBD: 0.4 cm Pancreas: Not visualized. Right kidney: 9.4 cm in length. Normal size and echogenicity. No hydronephrosis or mass. Aorta and IVC: Not visualized. No ascites. US/US liver [id number] IMPRESSION: 1. Previously described small metastatic lesions in the liver are not identifi ed by ultrasound. There are no liver lesions for which biopsy can be performed. There is a hyperechoic focus which is most typical for hemangioma. Less likely metastatic focus. 2. Negative gallbladder.
[2024-11-15 10:27] LABS: Basophils % 0.4 %; Eosinophils # 0.2 10^3/uL (0.0-0.8); Eosinophils % 3.5 %; Hematocrit 41.3 % (37-53); Lymphocytes % 20.2 %; Mean Corpuscular HGB Conc 33.2 g/dL (30-55); Mean Corpuscular Hemoglobin 31.6 pg (27-33); Mean Corpuscular Volume 95.2 fl (82-101); Mean Platelet Volume 9.3 fL (7.4-10.4); Monocytes # 0.4 10^3/uL (0.2-0.9); Monocytes % 9.1 %; Neutrophils # 3.24 10^3/uL (1.8-7.7); Neutrophils % 66.6 %; Nucleated Red Blood Cells % 0 %; Platelet Count 132 10^3/cmm (157-399); Red Blood Count 4.34 10^6/uL (3.85-5.65); White Blood Count 4.86 10^3/uL (3.29-11.43)
[2024-11-15 10:43] LABS: Alanine Aminotransferase 23 U/L (0-41); Albumin Level 3.7 g/dL (3.5-5.2); Alkaline Phosphatase 70 U/L (40-130); Anion Gap 13.9 (5-19); Aspartate Amino Transferase 29 U/L (0-40); Blood Urea Nitrogen 14 mg/dL (8-23); Calcium 9.3 mg/dL (8.5-10.5); Carbon Dioxide 27 mmol/L (22-29); Chloride 98 mmol/L (98-107); Creatinine Clr Calc Pharmacy 88.1556; Glomerular Filtration Rate 96.7 mL/min (90-130); Glucose 111 mg/dL (65-115); Lactate Dehydrogenase 161 U/L (135-225); Osmolality Calculated 281 mOsm/kg (285-295); Potassium 3.9 mmol/L (3.5-5.1); Sodium 135 mmol/L (136-145); Total Bilirubin 0.4 mg/dL (0.15-1.2); Total Protein 7.7 g/dL (6.6-8.7)
[2024-11-22 10:08] LABS: Basophils % 0.4 %; Eosinophils # 0.2 10^3/uL (0.0-0.8); Eosinophils % 3.1 %; Hematocrit 41.9 % (37-53); Lymphocytes # 1.1 10^3/uL (0.8-4.8); Lymphocytes % 20.3 %; Mean Corpuscular HGB Conc 32.9 g/dL (30-55); Mean Corpuscular Hemoglobin 31.7 pg (27-33); Mean Corpuscular Volume 96.1 fl (82-101); Mean Platelet Volume 9.7 fL (7.4-10.4); Monocytes # 0.6 10^3/uL (0.2-0.9); Monocytes % 11.5 %; Neutrophils # 3.53 10^3/uL (1.8-7.7); Neutrophils % 64.3 %; Nucleated Red Blood Cells % 0 %; Platelet Count 130 10^3/cmm (157-399); Red Blood Count 4.36 10^6/uL (3.85-5.65); Red Cell Distribution Width 12.7 % (12.1-15.1); White Blood Count 5.48 10^3/uL (3.29-11.43)
[2024-11-22 10:22] LABS: Alanine Aminotransferase 23 U/L (0-41); Albumin Level 3.8 g/dL (3.5-5.2); Alkaline Phosphatase 64 U/L (40-130); Anion Gap 12.9 (5-19); Aspartate Amino Transferase 28 U/L (0-40); Blood Urea Nitrogen 20 mg/dL (8-23); Calcium 9.3 mg/dL (8.5-10.5); Carbon Dioxide 29 mmol/L (22-29); Chloride 99 mmol/L (98-107); Globulin 3.6 g/dL (1.3-4.6); Glomerular Filtration Rate 84.4 mL/min (90-130); Glucose 92 mg/dL (65-115); Lactate Dehydrogenase 148 U/L (135-225); Osmolality Calculated 286 mOsm/kg (285-295); Potassium 3.9 mmol/L (3.5-5.1); Sodium 137 mmol/L (136-145); Total Bilirubin 0.4 mg/dL (0.15-1.2); Total Protein 7.4 g/dL (6.6-8.7)
[2024-11-22 11:13] VITALS: RESP 18
[2024-11-22] MEDS: ipratropium-albuterol 3 mL Neb INHALATION ×2 (11:13→11:19)
[2024-11-22] MEDS: morphine 4 mg/mL SDV 1 mL 2 MG IVP ×2 (11:13→15:01)
--- NOTE | 2024-11-22 11:47 | XR_ITS ---
WS: [id number] Exam: XR acute abdomen series [id number] Date/Time of Exam: 11/22/2024 12:07 PM Reason For Exam: abdominal pain Chest x-ray compared to previous study 07/20/2024. A 4.3 cm soft tissue mass seen along the LEFT heart border just below the LEFT hilum. The lungs are fully expanded. Mild plaque atelectasis in the LEFT base. Normal heart size. The mediastinum is normal in contour. A right-sided subclavian port ends in the lower one third of the SVC. Mild thoracic levo scoliosis. XR/XR acute abdomen series [id number] IMPRESSION: 1. 4.3 cm soft tissue mass along the LEFT heart border which may represent meta static lesion or primary lung malignancy. 2. No consolidated infiltrates or pneumothorax. Flat and erect abdomen. No bowel obstruction or pneumoperitoneum. No sign of or juventino enlargement. Moderate amount of stool in the colon. Bowel gas pattern is un remarkable. Bony structures are intact. IMPRESSION: 1. No acute abdominal finding.
[2024-11-22] MEDS: durvalumab 1,500 MG in sodium chloride 0.9% 250 ML 280 MG IV (14:47)
[2024-11-22 15:01] VITALS: RESP 18; O2SAT 91
[2024-11-22 16:12] VITALS: BP 124/76; PULSE 58; TEMP 37; O2SAT 91
== END 2024-11-22 23:59 | disposition home or self-care (01) ==
PROVIDERS: Nurse Practitioner Family; Visit Provider Internal Medicine
DX: Z53.9 Procedure and treatment not carried out, unspecified reason; Z51.12 Encounter for antineoplastic immunotherapy; C34.32 Malignant neoplasm of lower lobe, left bronchus or lung; D64.9 Anemia, unspecified; J43.1 Panlobular emphysema; Z79.899 Other long term (current) drug therapy; Z72.0 Tobacco use
CPT/HCPCS: 74022; 76705; 80053; 83615; 84443; 85025; 96375; 96413; 99213; 99215; A4222; J2270; J7050; J9173; J9999

== ENCOUNTER 2024-12-06 12:15 | Oncology outpatient (recurring) (ONCR) | payer MEDICAID, SELFPAY ==
[2024-12-06 12:43] LABS: Hematocrit 42.8 % (37-53); Hemoglobin 14.20 g/dL (11.27-16.99); Mean Corpuscular HGB Conc 33.2 g/dL (30-55); Mean Corpuscular Hemoglobin 31.1 pg (27-33); Mean Corpuscular Volume 93.9 fl (82-101); Nucleated Red Blood Cells % 0 %; Platelet Count 143 10^3/cmm (157-399); Red Blood Count 4.56 10^6/uL (3.85-5.65); White Blood Count 5.23 10^3/uL (3.29-11.43)
[2024-12-06 12:59] LABS: Alanine Aminotransferase 55 U/L (0-41); Albumin Level 3.7 g/dL (3.5-5.2); Alkaline Phosphatase 69 U/L (40-130); Anion Gap 14.0 (5-19); Aspartate Amino Transferase 55 U/L (0-40); Blood Urea Nitrogen 13 mg/dL (8-23); Calcium 9.3 mg/dL (8.5-10.5); Carbon Dioxide 29 mmol/L (22-29); Chloride 96 mmol/L (98-107); Creatinine Clr Calc Pharmacy 78.5679; Globulin 3.9 g/dL (1.3-4.6); Glucose 108 mg/dL (65-115); Osmolality Calculated 281 mOsm/kg (285-295); Potassium 4.0 mmol/L (3.5-5.1); Sodium 135 mmol/L (136-145); Total Protein 7.6 g/dL (6.6-8.7)
== END 2024-12-06 13:45 | disposition home or self-care (01) ==
PROVIDERS: Visit Provider Internal Medicine
DX: Z53.9 Procedure and treatment not carried out, unspecified reason (principal); C34.32 Malignant neoplasm of lower lobe, left bronchus or lung; J43.1 Panlobular emphysema; D64.9 Anemia, unspecified; Z87.891 Personal history of nicotine dependence; R07.89 Other chest pain; Z79.899 Other long term (current) drug therapy; Z99.81 Dependence on supplemental oxygen
CPT/HCPCS: 36591; 80053; 85025; 99213; 99214

== ENCOUNTER 2024-12-06 13:38 | Emergency (ER) | payer MEDICAID, SELFPAY ==
--- NOTE | 2024-12-06 13:40 | CTR_ITS ---
PROCEDURE INFORMATION: Exam: CTA Chest With Contrast Exam date and time: 12/06/2024 2:00 PM Age: 64 years old Clinical indication: Abdominal pain; Right-sided; Prior surgery; Surgery date: 6+ months; Surgery type: Port, hernia; HX of lung cancer; Additional info: Cp/abd pain TECHNIQUE: Imaging protocol: Computed tomographic angiography of the chest with contrast. Exam focused on the arteries. 3D rendering (Not supervised by radiologist): MIP and/or 3D reconstructed images were created by the technologist. Radiation optimization: All CT scans at this facility use at least one of these dose optimization techniques: automated exposure control; mA and/or kV adjustment per patient size (includes targeted exams where dose is matched to clinical indication); or iterative reconstruction. Contrast material: OMNI 350; Contrast volume: 100 ml; Contrast route: INTRAVENOUS (IV); COMPARISON: CT angio chest PE protcl [id number] 05/23/2024 1:34 PM RADIATION DOSE METRICS: Total DLP (mGy-cm): 574.44 FINDINGS: Pulmonary arteries: There is very poor contrast opacification of some of the pulmonary artery branches within the left upper lobe. I am uncertain as to whether this is due to pulmonary embolus or tumor involvement of the pulmonary artery branches. Aorta: Unremarkable. No aortic aneurysm. No aortic dissection. Lungs: Both lungs demonstrate prominent centrilobular and paraseptal emphysema. There is an area of faint patchy density involving the left upper lung field. Pleural spaces: Unremarkable. No pneumothorax. No pleural effusion. Heart: Unremarkable. No cardiomegaly. No pericardial effusion. Lymph nodes: Unremarkable. No enlarged lymph nodes. Bones/joints: Unremarkable. No acute fracture. Soft tissues: There is infiltrating soft tissue mass effect involving the left hilum. The mass effect causes mild bronchial narrowing. There is bronchial dilatation involving both lung bases along with multifocal mucous plugging. COMMENTS: The presence of pulmonary emphysema on CT is an independent risk factor for lung cancer. In the absence of a history or active diagnosis of lung cancer, it is recommended that this patient with emphysema be evaluated for enrollment in a low dose CT lung cancer screening program. PROCEDURE INFORMATION: Exam: CT Abdomen And Pelvis With Contrast Exam date and time: 12/06/2024 2:00 PM Age: 64 years old Clinical indication: Abdominal pain; Right-sided; Prior surgery; Surgery date: 6+ months; Surgery type: Port, hernia; HX of lung cancer; Additional info: Cp/abd pain TECHNIQUE: Imaging protocol: Computed tomography of the abdomen and pelvis with contrast. Radiation optimization: All CT scans at this facility use at least one of these dose optimization techniques: automated exposure control; mA and/or kV adjustment per patient size (includes targeted exams where dose is matched to clinical indication); or iterative reconstruction. Contrast material: OMNI 350; Contrast volume: 100 ml; Contrast route: INTRAVENOUS (IV); COMPARISON: CT abdomen pelvis w con* [id number] 04/17/2022 12:32 PM RADIATION DOSE METRICS: Total DLP (mGy-cm): 574.44 FINDINGS: Lungs: Lung bases are clear. No pleural effusion. Liver: There is a 2.9 cm diameter rounded metastatic lesion involving the anterior segment of the right hepatic lobe. A 1.7 cm rounded nodule involves the medial aspect of the right hepatic lobe. No other liver lesion noted. Gallbladder and biliary ducts: Normal. No calcified stones. No ductal dilation. Pancreas: Normal. No ductal dilation. Spleen: Normal. No splenomegaly. Adrenal glands: Normal. No mass. Kidneys and ureters: Normal. No hydronephrosis. Stomach and bowel: Unremarkable. No obstruction. No mucosal thickening. Appendix: No evidence of appendicitis. Intraperitoneal space: Unremarkable. No free air. No significant fluid collection. Vasculature: Unremarkable. No abdominal aortic aneurysm. Lymph nodes: Unremarkable. No enlarged lymph nodes. Urinary bladder: Unremarkable as visualized. Reproductive: Unremarkable as visualized. Bones/joints: Unremarkable. No acute fracture. Soft tissues: Unremarkable. CT/CT angio chest w abd pel w con IMPRESSION: 1. Persistent tumor involvement involving the left hilum causing bronchial narrowing. There now appears to be pulmonary artery involvement with poor contrast opacification within the left upper lobe. 2. Persistent and stable emphysematous changes 3. Left upper lobe infiltrate has improved somewhat over the past 2 months IMPRESSION: Enlarging hepatic metastatic lesions
[2024-12-06 13:42] VITALS: BP 101/70; PULSE 58; TEMP 36.6; O2SAT 92
--- NOTE | 2024-12-06 13:47 | ECG_ITS ---
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 Measurements Intervals [place] Rate: 51 P: 64 AR: 171 QRS: 79 QRSD: 102 T: 73 QT: 381 QTc: 351 Interpretive Statements SINUS BRADYCARDIA POSSIBLE ANTERIOR MYOCARDIAL INFARCTION , OF INDETERMINATE AGE [30 ms Q WAVE IN V3/V4, OR R < 0.2 mV IN V4] Compared to ECG 07/20/2024 13:45:59 Myocardial infarct finding now present Sinus rhythm no longer present Left ventricular hypertrophy no longer present Electronically Signed On 12-06-2024 20:01:20 CDT by Ras Arroyo M.D. [id number]
--- OUTSIDE RECORDS SUMMARY | 2024-12-06 13:51 | XMS_ITS | Clinical Summary ---
Author Organization [facility] Address [address] [place] [address] Phone Care Team Providers Care Blow Mold Technician Name Role Phone Unavailable Primary Care Provider Unavailabl e Allergies No known active allergies Active Problems Problem Noted Date Diagnosed Date Incisional hernia 12/19/2009 Immunizations Immunization Administration Dates Next Due Influenza A (H1N1) Vaccine PF IM 08/21/2009 Influenza Seasonal Unspecified Formulation IM Family History Medical History Relation Name Comments Healthy Brother 1 Healthy Brother 2 Healthy Sister 1 Healthy Sister 2 Relation Name Status Comments Brother 1 Alive Brother 2 Alive Father Mother Sister 1 Alive Sister 2 Alive Social History Tobacco Use Types Packs/Day Years Used Date Smoking Tobacco: Every Day Cigarettes Alcohol Use Standard Drinks/Week Comments Yes 1.7 (1 standard drink = 0.6 oz p ure alcohol) Sex and Gender Information Value Date Recorded Sex Assigned at Not on file Legal Sex Male 11:56 PM CDT Gender Identity Not on file Sexual Orientation Not on file Last Filed Vital Signs Vital Sign Reading Time Taken Comments Blood Pressure 138/86 01/29/2015 9:54 AM CDT Pulse - - Temperature 36.6 C (97.8 F) 01/29/2015 7:41 AM CDT Respiratory Rate 16 01/29/2015 9:54 AM CDT Oxygen Saturation - - Inhaled Oxygen Concentration - - Weight 72.6 kg (160 lb) 01/29/2015 7:41 AM CDT Height 172.7 cm (5' 8 ) 01/29/2015 7:41 AM CDT Body Mass Index 24.33 01/29/2015 7:41 AM CDT Plan of Treatment Health Maintenance Due Date Last Done Comments DTAP/TDAP/TD VACCINES (1 - Tdap) 1977 COLORECTAL SCREENING 10/15/2003 Colorectal Cancer Screening 10/15/2003 FIT-DNA Q 3 years 10/15/2003 FIT/FOBT Q 1 year 10/15/2003 Flex Sig/CT Colonography Q 5 years 10/15/2003 PNEUMOCOCCAL VACCINE 50+ YEARS (1 of 1 - PCV) 10/15/19 09 ZOSTER VACCINE (1 of 2) 2008 INFLUENZA VACCINE (#1) 2024 03/31/2009 RSV VACCINE (60+ or ) (1 - 1-dose 75+ series) 2033 Medical Devices Implanted Type Area Book Mender Device Identifier Shelf Expiration Date Model / Serial / Lot Log [id number] - Mesh Bard Inguinal Hernia - 1 - Graft Dermal Flex Hd [id number] Ultra Thick Implanted:Qty : 1 on 12/20/2009 Graft N/A: Abdomen MUSCULOSKELETAL TRANSPLANT FOU 07/01/2012 [id number] / [id number] / N/A Additional Health Concerns Infection Onset Date Last Indicated MRSA Comment:Nares 12/19/09; Abdomen 08/13/09 08/15/2009 08/15/2009
[2024-12-06] MEDS: iohexol 350 mg/mL 500 mL Btl (per mL) IV (14:05)
--- NOTE | 2024-12-06 14:38 | ED_ITS ---
HPI - Abdominal Pain 2 General: Chief Complaint: Abdominal Pain Stated Complaint: abdominal pain Time Seen by Provider: 12/06/24 13:58 Source: patient Mode of arrival: ambulatory Limitations: no limitations History of Present Illness: 64-year-old male has a history of squ[place] us cell lung cancer currently on chemotherapy states he been having right upper quadrant abdominal pains been going on for the last 2 weeks. States pains been sharp in nature has had some nausea with the pain as well. He is sent here from oncology for imaging. He denies any shortness of breath or fever Associated Symptoms: Denies chills, diarrhea, fever(s), nausea and vomiting Related Data Home Medications ?Medication ?Instructions ?Recorded ?Confirmed sennosides 8.6 mg-docusate sodium 1 tab PO PRN PRN Con stipation 07/20/24 12/06/24 50 mg tablet (Stimulant Laxative Plus) Previous Rx's ?Medication ?Instructions ?Recorded lorazepam 1 mg tablet 0.5 - 1 mg (0.5 - 1 x 1 mg) PO Q6H 06/22/24 Held on 07/04/24. PRN severe nausea #30 tabs Instructions: Resume on 07/05/24. polyethylene glycol 3350 17 4 g PO DAILY constipation #238 07/17/24 gram/dose oral powder (Miralax) grams prochlorperazine maleate 10 mg 10 mg PO Q4H PRN mild n ausea #30 10/04/24 tablet (Compazine) tabs amoxicillin 500 mg-potassium 1 tab PO BID 10 days #20 tabs 11/01/24 clavulanate 125 mg tablet (Augmentin) famotidine 20 mg tablet 20 mg PO BID #60 tabs levofloxacin 500 mg tablet 500 mg PO DAILY 7 days #7 t abs 11/09/24 lidocaine-prilocaine 2.5 %-2.5 % 1 applic [employer] PLEX #30 grams 11/09/24 topical cream nicotine 21 mg/24 hr daily 1 patch transdermal DAILY t ob 11/15/24 transdermal patch dependence #28 ea albuterol sulfate 90 mcg/actuation 2 puff inhalation Q 4H PRN 11/27/24 aerosol inhaler (Ventolin HFA) shortness of breath or wheezing #8.5 grams ondansetron HCl 4 mg tablet 8 mg (2 x 4 mg) PO Q6H PRN nausea 11/27/24 and vomiting #60 tabs oxycodone 30 mg tablet 30 mg PO Q4H PRN pain 30 day s #120 11/27/24 tabs lactulose 10 gram/15 mL oral 10 g (15 mL) PO Q8H PRN 0 11/28/24 solution constipation #300 mL triamcinolone acetonide 0.1 % 1 applic topical TID PRN itching 11/28/24 topical cream #15 grams Allergies Allergy/AdvReac Type Severity Reaction Status Date / Time No Known Allergies Allergy Verified 12/06/24 13:52 Review of Systems 2 Const: Denies: fever(s), chills, body aches or change in appetite Eyes: Denies: blurry vision or eye discomfort ENMT: Denies: throat pain or dental pain Card: Denies: chest pain Resp: Denies: dyspnea GI: Reports: abdominal pain; Denies: nausea, vomiting or diarrhea Musc: Denies: neck pain or back pain Skin/Breast: Denies: rash Neuro: Denies: headache(s) PFSH ED 2 PFSH: Medical History Abnormal CT lung screening Lung nodule seen on imaging study Smoker unmotivated to quit Started age 13 1/2 to 1 ppd PUD (peptic ulcer disease) COPD (chronic obstructive pulmonary disease) Surgical History H/O hernia repair Ventral Social History Smoking and tobacco/nicotine status: former use of tobacco/nicotine Alcohol intake: never Substance/Drug Use: current Substance/Drug use frequency: few times a week Physical Exam 2 Const: COMMON NORMALS: no acute distress, patient oriented x3 and healthy appearing HENMT: COMMON NORMALS: normocephalic and atraumatic HEAD & SCALP: n ormocephalic and atraumatic Eye: COMMON NORMALS: conjunctivae normal CONJUNCTIVA: Yes conjunctivae normal Neck/C-Spine: COMMON NORMALS: full ROM and supple Chest: COMMONS NORMALS: normal inspection of the chest Resp: COMMON NORMALS: normal respiratory effort, No retractions, No use of accessory muscles and clear to auscultation bilaterally AUSCULTATION: clear to auscultation bilaterally Cardio: COMMON NORMALS: regular rate, regular rhythm and No murmurs present (Cardio) RATE: regular rate RHYTHM: regular rhythm GI: COMMON NORMALS: Normal to inspection, nondistended, normoactive bowel sounds present, Soft to palpation and no masses PALPATION: Yes Soft to palpation and Yes Tenderness to palpation present (GI) Details: RUQ Extremity: COMMON NORMALS: normal to inspection and full ROM Neuro: COMMON NORMALS: patient oriented x3, moves all extremities and no focal motor deficits Psych: COMMON NORMALS: mental status grossly normal, Normal thought process present and cooperative THOUGHT PROCESS: Normal thought process present Skin: COMMON NORMALS: no rashes or lesions noted and no wounds GENERAL SKIN EXAM: no rashes or lesions noted Course 2 Vital Signs: Vital signs: Vital Signs Temperature 97.8 F 12/06/24 13:42 Pulse Rate 58 L 12/06/24 13:42 Blood Pressure 101/70 12/06/24 13:42 Pulse Oximetry 92 12/06/24 13:42 Oxygen Delivery Me thod Room Air 12/06/24 13:42 MDM - Abdominal Pain Medical Decision Making Patient presents here with abdominal pain likely from his cancer CT showed no acute findings blood works normal his pain is improved he stable for discharge he is follow-up with his oncologist Medical Records I reviewed the patient's medical records. Lab Data I reviewed the patient's lab results. 12/06/24 14:28 12/06/24 14:28 Labs/Radiology: Radiology Impressions Chest/Abdomen/Pelvis CT 12/06/24 13:40 IMPRESSION: 1. Persistent tumor involvement involving the left hilum causing bronchial narrowing. There now appears to be pulmonary artery involvement with poor contrast opacification within the left upper lobe. 2. Persistent and stable emphysematous changes 3. Left upper lobe infiltrate has improved somewhat over the past 2 months IMPRESSION: Enlarging hepatic metastatic lesions Laboratory Results WBC 4.59 10^3/uL (3.29-11.43) 12/06/24 14:28 RBC 4.34 10^6/uL (3.85-5.65) 12/06/24 14:28 Hgb 13.60 g/dL (11.27-16.99) 12/06/24 14:28 Hct 41.1 % (37-53) 12/06/24 14:28 MCV 94.7 fl (82-101) 12/06/24 14:28 MCH 31.3 pg (27-33) 12/06/24 14: MCHC 33.1 g/dL (30-55) 12/06/24 14:28 RDW 12.4 % (12.1-15.1) 12/06/24 14:28 Plt Count 129 10^3/cmm (157-399) L 12/06/24 14:28 MPV 9.7 fL (7.4-10.4) 12/06/24 14:28 Neut % (Auto) 63.9 % 12/06/24 14:28 Lymph % (Auto) 19.2 % 12/06/24 14:28 [place] % (Auto) 12.4 % 12/06/24 14:28 Eos % (Auto) 3.9 % 12/06/24 14:28 Baso % (Auto) 0.4 % 12/06/24 14:28 Neut # (Auto) 2.93 10^3/uL (1.8-7.7) 12/06/24 14:28 Lymph # (Auto) 0.9 10^3/uL (0.8-4.8) 12/06/24 14:28 [place] # (Auto) 0.6 10^3/uL (0.2-0.9) 12/06/24 14:28 Eos # (Auto) 0.2 10^3/uL (0.0-0.8) 12/06/24 14:28 Baso # (Auto) 0.0 10^3/uL (0.0-0.1) 12/06/24 14:28 Nucleated RBC % (auto) 0 % 12/06/24 14: Nucleated RBCs # 0.0 /100WBC 12/06/24 14:28 Sodium 133 mmol/L (136-145) L 12/06/24 14:28 Potassium 4.1 mmol/L (3.5-5.1) 12/06/24 14:28 Chloride 98 mmol/L (98-107) 12/06/24 14:28 Carbon Dioxide 26 mmol/L (22-29) 12/06/24 14:28 Anion Gap 13.1 (5-19) 12/06/24 14:28 BUN 13 mg/dL (8-23) 12/06/24 14:28 Creatinine 0.8 mg/dL (0.7-1.2) 12/06/24 14:28 GFR Calculation 96.7 mL/min (90-130) 12/06/24 14:28 Glucose 89 mg/dL (65-115) 12/06/24 14:28 Calculated Osmolality 276 mOsm/kg (285-295) L 12/06/24 14:28 Calcium 8.9 mg/dL (8.5-10.5) 12/06/24 14:28 Total Bilirubin 0.4 mg/dL (0.15-1.2) 12/06/24 14:28 AST 50 U/L (0-40) H 12/06/24 14:28 ALT 51 U/L (0-41) H 12/06/24 14:28 Alkaline Phosphatase 61 U/L (40-130) 12/06/24 14:28 Total Protein 6.9 g/dL (6.6-8.7) 12/06/24 14:28 Albumin 3.5 g/dL (3.5-5.2) 12/06/24 14:28 Globulin 3.4 g/dL (1.3-4.6) 12/06/24 14:28 Lipase 9 U/L (13-60) L 12/06/24 14:28 All radiology interpretation(s) finalized by discharge Discharge Plan Discharge Patient Disposition: Home Clinical Impression: Abdominal pain Condition: Stable Prescriptions: No Action lorazepam 1 mg tablet 0.5 - 1 mg PO Q6H PRN (Reason: severe nausea) Qty: 30 3RF prochlorperazine maleate [Compazine] 10 mg tablet 10 mg PO Q4H PRN (Reason: mild nausea) Qty: 30 3RF amoxicillin-pot clavulanate [Augmentin] 500-125 mg tablet 1 tab PO BID 10 Days Qty: 20 0RF nicotine 21 mg/24 hr patch 24 hour 1 patch transdermal DAILY Qty: 28 1RF sennosides-docusate sodium [Stimulant Laxative Plus] 8.6-50 mg tablet 1 tab PO PRN PRN (Reason: Constipation) lidocaine-prilocaine 2.5-2.5 % cream 1 applic topical .COMPLEX Qty: 30 2RF Rx Instructions: Apply quarter-size amount to port site 30 minutes prior to access; cover with cling wrap famotidine 20 mg tablet 20 mg PO BID Qty: 60 0RF levofloxacin 500 mg tablet 500 mg PO DAILY 7 Days Qty: 7 0RF triamcinolone acetonide 0.1 % cream 1 applic topical TID PRN (Reason: itching) Qty: 15 0RF lactulose 10 gram/15 mL solution 10 g PO Q8H PRN (Reason: constipation) Qty: 300 0RF polyethylene glycol 3350 [Miralax] 17 gram/dose powder 4 g PO DAILY Qty: 238 3RF ondansetron HCl 4 mg tablet 8 mg PO Q6H PRN (Reason: nausea and vomiting) Qty: 60 3RF albuterol sulfate [Ventolin HFA] 90 mcg/actuation HFA aerosol inhaler 2 puff inhalation Q4H PRN (Reason: shortness of breath or wheezing) Qty: 8.5 6RF oxycodone 30 mg tablet 30 mg PO Q4H PRN (Reason: pain) 30 Days Qty: 120 0RF Discharge Orders: Discharge ED (Routine); Ordered 12/06/24 Ordered By: Kris Barraza Discharge Diet: Advance as tolerated Discharge Activity: Resume usual activity Patient Instructions: Abdominal Pain (ED) Print Language: Greenlandic Coding Level of Care Code ED Roller Engraver for Afua Moncada
[2024-12-06 14:44] LABS: Hematocrit 41.1 % (37-53); Hemoglobin 13.60 g/dL (11.27-16.99); Mean Corpuscular HGB Conc 33.1 g/dL (30-55); Mean Corpuscular Hemoglobin 31.3 pg (27-33); Mean Corpuscular Volume 94.7 fl (82-101); Nucleated Red Blood Cells % 0 %; Platelet Count 129 10^3/cmm (157-399); Red Blood Count 4.34 10^6/uL (3.85-5.65); White Blood Count 4.59 10^3/uL (3.29-11.43)
[2024-12-06 15:02] LABS: Alanine Aminotransferase 51 U/L (0-41); Albumin Level 3.5 g/dL (3.5-5.2); Alkaline Phosphatase 61 U/L (40-130); Anion Gap 13.1 (5-19); Aspartate Amino Transferase 50 U/L (0-40); Blood Urea Nitrogen 13 mg/dL (8-23); Calcium 8.9 mg/dL (8.5-10.5); Carbon Dioxide 26 mmol/L (22-29); Chloride 98 mmol/L (98-107); Creatinine Clr Calc Pharmacy 88.3889; Globulin 3.4 g/dL (1.3-4.6); Glucose 89 mg/dL (65-115); Lipase 9 U/L (13-60); Osmolality Calculated 276 mOsm/kg (285-295); Potassium 4.1 mmol/L (3.5-5.1); Sodium 133 mmol/L (136-145); Total Protein 6.9 g/dL (6.6-8.7)
[2024-12-06 16:10] VITALS: BP 110/69; PULSE 60; O2SAT 93
== END 2024-12-06 16:10 | disposition home or self-care (01) ==
PROVIDERS: Emergency Provider Emergency Medicine
DX: R10.11 Right upper quadrant pain (principal); Z85.118 Personal history of other malignant neoplasm of bronchus and lung; J44.9 Chronic obstructive pulmonary disease, unspecified; Z87.891 Personal history of nicotine dependence
CPT/HCPCS: 71275; 74177; 80053; 83690; 85025; 93005; 99285

== ENCOUNTER 2024-12-27 08:30 | Oncology outpatient (recurring) (ONCR) | payer MEDICAID, SELFPAY ==
[2024-12-13 11:43] VITALS: RESP 18
[2024-12-13] MEDS: oxyCODONE 5 mg IR Tab/Cap 30 MG PO (11:43)
[2024-12-20] MEDS: alteplase 1 mg/mL SDV 2 mL 2 MG INTRACATH (12:57)
[2024-12-20 13:00] LABS: Hematocrit 41.0 % (37-53); Hemoglobin 13.40 g/dL (11.27-16.99); Mean Corpuscular HGB Conc 32.7 g/dL (30-55); Mean Corpuscular Hemoglobin 30.7 pg (27-33); Mean Corpuscular Volume 94.0 fl (82-101); Nucleated Red Blood Cells % 0 %; Platelet Count 154 10^3/cmm (157-399); Red Blood Count 4.36 10^6/uL (3.85-5.65); White Blood Count 4.86 10^3/uL (3.29-11.43)
[2024-12-20 13:16] LABS: Alanine Aminotransferase 58 U/L (0-41); Albumin Level 3.8 g/dL (3.5-5.2); Alkaline Phosphatase 66 U/L (40-130); Anion Gap 15.8 (5-19); Aspartate Amino Transferase 54 U/L (0-40); Blood Urea Nitrogen 15 mg/dL (8-23); Calcium 9.5 mg/dL (8.5-10.5); Carbon Dioxide 26 mmol/L (22-29); Chloride 97 mmol/L (98-107); Creatinine Clr Calc Pharmacy 88.1556; Globulin 3.6 g/dL (1.3-4.6); Glucose 102 mg/dL (65-115); Osmolality Calculated 281 mOsm/kg (285-295); Potassium 3.8 mmol/L (3.5-5.1); Sodium 135 mmol/L (136-145); Total Protein 7.4 g/dL (6.6-8.7)
[2024-12-20] MEDS: durvalumab 1,500 MG in sodium chloride 0.9% 250 ML 280 MG IV (14:47)
[2024-12-27 08:48] LABS: Hematocrit 43.3 % (37-53); Hemoglobin 14.10 g/dL (11.27-16.99); Mean Corpuscular HGB Conc 32.6 g/dL (30-55); Mean Corpuscular Hemoglobin 30.3 pg (27-33); Mean Corpuscular Volume 93.1 fl (82-101); Nucleated Red Blood Cells % 0 %; Platelet Count 142 10^3/cmm (157-399); Red Blood Count 4.65 10^6/uL (3.85-5.65); White Blood Count 5.89 10^3/uL (3.29-11.43)
[2024-12-27 09:14] LABS: Alanine Aminotransferase 57 U/L (0-41); Albumin Level 3.8 g/dL (3.5-5.2); Alkaline Phosphatase 68 U/L (40-130); Anion Gap 14.1 (5-19); Aspartate Amino Transferase 53 U/L (0-40); Blood Urea Nitrogen 16 mg/dL (8-23); Calcium 9.8 mg/dL (8.5-10.5); Carbon Dioxide 28 mmol/L (22-29); Chloride 101 mmol/L (98-107); Creatinine Clr Calc Pharmacy 88.1556; Globulin 4.1 g/dL (1.3-4.6); Glucose 126 mg/dL (65-115); Osmolality Calculated 291 mOsm/kg (285-295); Potassium 4.1 mmol/L (3.5-5.1); Sodium 139 mmol/L (136-145); Thyroid Stimulating Hormone 0.02 uIU/mL (0.27-4.20); Total Protein 7.9 g/dL (6.6-8.7)
--- NOTE | 2024-12-27 16:12 | PC.NURSE ---
Patient transported to [facility] ER via wheelchair per Mechelle Camacho [employer]. Pt was experiencing elevated heart rate along with swelling of the lower extremities. ER staff notified of patients concerns as well as notification that port was accessed.
== END 2024-12-27 13:26 | disposition home or self-care (01) ==
PROVIDERS: Visit Provider Internal Medicine
DX: Z53.9 Procedure and treatment not carried out, unspecified reason; C34.90 Malignant neoplasm of unspecified part of unspecified bronchus or lung
CPT/HCPCS: 36415; 36591; 80053; 84443; 85025; 96413; 99213; A4222; J2997; J7050; J9173; J9999

== ENCOUNTER 2024-12-27 10:33 | Observation (INO) | payer MEDICAID, SELFPAY ==
[2024-12-27] VITALS (11 sets, daily range): BP systolic 95–106; BP diastolic 53–72; PULSE 52–134; RESP 16–22; TEMP 36.7–37; O2SAT 90–97
--- OUTSIDE RECORDS SUMMARY | 2024-12-27 10:43 | XMS_ITS | Clinical Summary ---
Author Organization [facility] Address [address] [place] [address] Phone Care Team Providers Care Operator Name Role Phone Unavailable Primary Care Provider [...] series) 2033 Medical Devices Implanted Type Area Corrugated Fastener Driver Device Identifier Shelf Expiration Date Model / Serial / Lot Log [id number] - Mesh Bard Inguinal Hernia - 1 - Graft Dermal Flex Hd [id number] Ultra Thick Implanted:Qty : 1 on 12/20/2009 Graft N/A: Abdomen MUSCULOSKELETAL TRANSPLANT FOU 07/01/2012 [id number] / [id number] / N/A Additional Health Concerns Infection Onset Date Last Indicated MRSA Comment:Nares 12/19/09; Abdomen 08/13/09 08/15/2009 08/15/2009
--- NOTE | 2024-12-27 10:49 | XR_ITS ---
WS: [id number] Portable AP upright chest, 12/27/2024 Clinical Data: chest pain Comparison: Acute abdomen series with PA chest, 11/22/2024 Findings: There is increasing opacity of the left hilum and increasing size along with a patchy opacity extending inferiorly to the surface of the left diaphragm. The diaphragms are flattened. The heart is normal. The pulmonary vascularity is not increased. No pneumonia or pneumothorax is seen. The aortic arch shows calcification and tortuosity. There is an infusion catheter on the right unchanged. There are monitor leads on the chest wall. There is a levoscoliosis. XR/XR chest 1V portable [id number] Impression: 1. Increasing opacity left hilum with patchy opacity extending inferior to the surface of the left diaphragm which could represent increase in size of the lef t hilar mass with an obstructing pneumonia and/or atelectasis into the left low er lobe. Tube. Hyperinflation and atherosclerosis.
--- NOTE | 2024-12-27 10:49 | ECG_ITS ---
[facility] Test Date: 2024-12-27 Pat Name: Fran Davidson Department: Room: Gender: Male Hydrodynamics Teacher: : 1960 Requested By: Leland Crouch Order Number: [id number] Tran MD: Rj Groves M.D. Measurements Intervals [place] Rate: 136 P: -66 MD: 160 QRS: 82 QRSD: 94 T: 28 QT: 274 QTc: 414 Interpretive Statements ECTOPIC ATRIAL TACHYCARDIA VOLTAGE CRITERIA FOR LVH [MEETS CRITERIA IN ONE OF: R(aVL), S(V1), R(V5), R(V5/V6)+S(V1)] NONSPECIFIC ST & T-WAVE ABNORMALITY Compared to ECG 12/06/2024 13:47:00 Left ventricular hypertrophy now present T-wave abnormality now present Sinus bradycardia no longer present Myocardial infarct finding no longer present Electronically Signed On 12-28-2024 10:24:25 CDT by Rj Groves M.D. [email or web address] [id number]
--- NOTE | 2024-12-27 10:52 | ED_ITS ---
HPI - Arrhythmia/Palpitations 2 General: Chief Complaint: Arrhythmia/Palpitations Stated Complaint: SOB, accelerated heartrate Time Seen by Provider: 12/27/24 10:48 History of Present Illness: 64-year-old male presents emergency room from oncology clinic with complaints of rapid heart rate generalized discomfort mild shortness of breath. He has no history of A-fib or atrial flutter. He does have a history of lung cancer he is currently getting maintenance therapies. He is not having any chest pain or discomfort at this time. He states has been going on for intermittently for couple of days. Related Data Home Medications ?Medication ?Instructions ?Recorded ?Confirmed sennosides 8.6 mg-docusate sodium 1 tab PO PRN PRN Con stipation 07/20/24 12/27/24 50 mg tablet (Stimulant Laxative Plus) polyethylene glycol 3350 17 4 g PO DAILY PRN constipat ion 12/27/24 12/27/24 gram/dose oral powder (Miralax) Previous Rx's ?Medication ?Instructions ?Recorded prochlorperazine maleate 10 mg 10 mg PO Q4H PRN mild n ausea #30 10/04/24 tablet (Compazine) tabs famotidine 20 mg tablet 20 mg PO BID #60 tabs lidocaine-prilocaine 2.5 %-2.5 % 1 applic [employer]a .[employer] PLEX #30 grams 11/09/24 topical cream nicotine 21 mg/24 hr daily 1 patch transdermal DAILY t ob 11/15/24 transdermal patch dependence #28 ea albuterol sulfate 90 mcg/actuation 2 puff inhalation Q 4H PRN 11/27/24 aerosol inhaler (Ventolin HFA) shortness of breath or wheezing #8.5 grams ondansetron HCl 4 mg tablet 8 mg (2 x 4 mg) PO Q6H PRN nausea 11/27/24 and vomiting #60 tabs oxycodone 30 mg tablet 30 mg PO Q4H PRN pain 30 day s #120 11/27/24 tabs triamcinolone acetonide 0.1 % 1 applic topical TID PRN itching 11/28/24 topical cream #15 grams oxycodone myristate 13.5 mg 13.5 mg PO Q12H 30 days #6 0 ea 12/13/24 capsule sprinkle extend release 12hr(DON'T CRUSH) (Xtampza ER) lactulose 10 gram/15 mL oral 10 g (15 mL) PO Q8H PRN 0 12/27/24 solution constipation #600 mL Allergies Allergy/AdvReac Type Severity Reaction Status Date / Time No Known Allergies Allergy Verified 12/27/24 09:18 Review of Systems 2 Const: Denies: fever(s) or chills Card: Reports: palpitations, irregular heart rhythm, edema, swelling of feet/ankles, dyspnea on exertion and orthopnea; Denies: chest pain Resp: Denies: dyspnea GI: Denies: abdominal pain : Denies: dysuria, urinary frequency or urinary urgency Musc: Denies: neck pain or back pain Skin/Breast: Denies: rash PFSH ED 2 PFSH: Medical History Abnormal CT lung screening Lung nodule seen on imaging study Smoker unmotivated to quit Started age 13 1/2 to 1 ppd PUD (peptic ulcer disease) COPD (chronic obstructive pulmonary disease) Surgical History H/O hernia repair Ventral Social History Smoking and tobacco/nicotine status: former use of tobacco/nicotine Alcohol intake: never Substance/Drug Use: current Substance/Drug use frequency: few times a week Physical Exam 2 Const: GENERAL APPEARANCE: cooperative ORIENTATION/CONSCIOUSNESS: Yes awake, Yes oriented to person, Yes oriented to place and Yes oriented to time HENMT: COMMON NORMALS: normocephalic, atraumatic and hearing grossly normal bilaterally HEAD & SCALP: normocephalic and atraumatic Resp: COMMON NORMALS: normal respiratory effort, No retractions, No use of accessory muscles and clear to auscultation bilaterally AUSCULTATION: clear to auscultation bilaterally Cardio: COMMON NORMALS: regular rate, regular rhythm and No murmurs present (Cardio) RATE: regular rate RHYTHM: regular rhythm GI: COMMON NORMALS: Soft to palpation and No hepatosplenomegaly present A USCULTATION: Yes normoactive bowel sounds PALPATION: Yes Soft to palpation, No Tenderness to palpation present (GI), No Guarding due to palpation present (GI) and Yes No hepatosplenomegaly present Extremity: COMMON NORMALS: normal to inspection, capillary refill normal, no clubbing, cyanosis or edema, no calf tenderness and no pedal edema Neuro: SENSORIUM/ORIENTATION: Yes oriented to person, Yes oriented to place and Yes oriented to time Skin: COMMON NORMALS: no rashes or lesions noted GENERAL SKIN EXAM: no rashes or lesions noted Course 2 Vital Signs: Vital signs: Vital Signs Temperature 98.6 F 12/27/24 11:00 Pulse Rate 134 H 12/27/24 11:00 Respiratory Rate 16 12/27/24 11:00 Blood Pressure 104/72 12/27/24 11:00 Pulse Oximetry 92 12/27/24 11:00 Oxygen Delivery Me thod Nasal Cannula 12/27/24 11:00 Oxygen Flow Rate 3 12/27/24 11:00 MDM - Arrhythmia/Palpitations Medical Decision Making Patient presents in atrial flutter. He was given Cardizem 10 mg bolus and then after the second 10 mg bolus he had a very long sinus pause of about 3 to 4 seconds then came back with sinus arrhythmia with bradycardia. That bradycardia has persisted since that time. He is currently maintaining sinus bradycardia relative hypotension as well. He has received IV fluids. Discussed with hospitalist will admit to cardiac stepdown. Medical Records I reviewed the patient's medical records. Lab Data I reviewed the patient's lab results. 12/27/24 10:51 12/27/24 10:51 Radiology Impressions Chest X-Ray 12/27/24 10:49 Impression: 1. Increasing opacity left hilum with patchy opacity extending inferior to the surface of the left diaphragm which could represent increase in size of the left hilar mass with an obstructing pneumonia and/or atelectasis into the left lower lobe. Tube. Hyperinflation and atherosclerosis. Laboratory Results WBC 4.70 10^3/uL (3.29-11.43) 12/27/24 10:51 RBC 4.46 10^6/uL (3.85-5.65) 12/27/24 10:51 Hgb 13.50 g/dL (11.27-16.99) 12/27/24 10:51 Hct 41.8 % (37-53) 12/27/24 10:51 MCV 93.7 fl (82-101) 12/27/24 10:51 MCH 30.3 pg (27-33) 12/27/24 10:51 MCHC 32.3 g/dL (30-55) 12/27/24 10:51 RDW 12.9 % (12.1-15.1) 12/27/24 10:51 Plt Count 128 10^3/cmm (157-399) L 12/27/24 10:51 MPV 9.8 fL (7.4-10.4) 12/27/24 10:51 Neut % (Auto) 71.6 % 12/27/24 10:51 Lymph % (Auto) 13.2 % 12/27/24 10:51 [place] % (Auto) 10.6 % 12/27/24 10:51 Eos % (Auto) 4.0 % 12/27/24 10:51 Baso % (Auto) 0.4 % 12/27/24 10:51 Neut # (Auto) 3.36 10^3/uL (1.8-7.7) 12/27/24 10:51 Lymph # (Auto) 0.6 10^3/uL (0.8-4.8) L 12/27/24 10:51 [place] # (Auto) 0.5 10^3/uL (0.2-0.9) 12/27/24 10:51 Eos # (Auto) 0.2 10^3/uL (0.0-0.8) 12/27/24 10:51 Baso # (Auto) 0.0 10^3/uL (0.0-0.1) 12/27/24 10:51 Nucleated RBC % (auto) 0 % 12/27/24 10:51 Nucleated RBCs # 0.0 /100WBC 12/27/24 10:51 Sodium 138 mmol/L (136-145) 12/27/24 10:51 Potassium 4.1 mmol/L (3.5-5.1) 12/27/24 10:51 Chloride 101 mmol/L (98-107) 12/27/24 10:51 Carbon Dioxide 27 mmol/L (22-29) 12/27/24 10:51 Anion Gap 14.1 (5-19) 12/27/24 10:51 BUN 16 mg/dL (8-23) 12/27/24 10:51 Creatinine 0.7 mg/dL (0.7-1.2) 12/27/24 10:51 GFR Calculation 112.8 mL/min (90-130) 12/27/24 10:51 Glucose 149 mg/dL (65-115) H 12/27/24 10:51 Calculated Osmolality 290 mOsm/kg (285-295) 12/27/24 10:51 Calcium 9.3 mg/dL (8.5-10.5) 12/27/24 10:51 Total Bilirubin 0.6 mg/dL (0.15-1.2) 12/27/24 10:51 AST 48 U/L (0-40) H 12/27/24 10:51 ALT 54 U/L (0-41) H 12/27/24 10:51 Alkaline Phosphatase 64 U/L (40-130) 12/27/24 10:51 Troponin T Baseline 9 ng/L (0-15) 12/27/24 10:51 Total Protein 7.2 g/dL (6.6-8.7) 12/27/24 10:51 Albumin 3.8 g/dL (3.5-5.2) 12/27/24 10:51 Globulin 3.4 g/dL (1.3-4.6) 12/27/24 10:51 All radiology interpretation(s) finalized by discharge EKG Data EKG 1: Other EKG comments: Chest X-Ray 12/27/24 10:49 Impression: 1. Increasing opacity left hilum with patchy opacity extending inferior to the surface of the left diaphragm which could represent increase in size of the left hilar mass with an obstructing pneumonia and/or atelectasis into the left lower lobe. Tube. Hyperinflation and atherosclerosis. EKG 12/27/2024 10:45 AM patient has atrial tachycardia ventricular rate of 136 IN interval 160 QT of 354. Patient has signs of left ventricular pretrip he. No acute ST changes noted. EKG 2: Interpretation: EKG 730 2025-04-01 sinus bradycardia with sinus arrhythmia rate 57 IN interval 177 QTc 353. Patient has criteria for LVH. No acute changes noted. Other EKG comments: Chest X-Ray 12/27/24 10:49 Impression: 1. Increasing opacity left hilum with patchy opacity extending inferior to the surface of the left diaphragm which could represent increase in size of the left hilar mass with an obstructing pneumonia and/or atelectasis into the left lower lobe. Tube. Hyperinflation and atherosclerosis. Discharge Plan Discharge Patient Disposition: Admitted As Inpatient Clinical Impression: Atrial fibrillation with RVR, COPD (chronic obstructive pulmonary disease), Lung cancer Condition: Stable Coding Level of Care Code ED Noteman for Afua Moncada
[2024-12-27] MEDS: dilTIAZem 5 mg/mL SDV 5 mL 20 MG IVP (10:55)
[2024-12-27 10:59] LABS: Hematocrit 41.8 % (37-53); Hemoglobin 13.50 g/dL (11.27-16.99); Mean Corpuscular HGB Conc 32.3 g/dL (30-55); Mean Corpuscular Hemoglobin 30.3 pg (27-33); Mean Corpuscular Volume 93.7 fl (82-101); Nucleated Red Blood Cells % 0 %; Platelet Count 128 10^3/cmm (157-399); Red Blood Count 4.46 10^6/uL (3.85-5.65); White Blood Count 4.70 10^3/uL (3.29-11.43)
[2024-12-27 11:15] LABS: Alanine Aminotransferase 54 U/L (0-41); Albumin Level 3.8 g/dL (3.5-5.2); Alkaline Phosphatase 64 U/L (40-130); Anion Gap 14.1 (5-19); Aspartate Amino Transferase 48 U/L (0-40); Blood Urea Nitrogen 16 mg/dL (8-23); Calcium 9.3 mg/dL (8.5-10.5); Carbon Dioxide 27 mmol/L (22-29); Chloride 101 mmol/L (98-107); Globulin 3.4 g/dL (1.3-4.6); Glucose 149 mg/dL (65-115); Osmolality Calculated 290 mOsm/kg (285-295); Potassium 4.1 mmol/L (3.5-5.1); Sodium 138 mmol/L (136-145); Total Protein 7.2 g/dL (6.6-8.7)
[2024-12-27 11:19] LABS: Troponin(5th) Baseline 9 ng/L (0-15)
[2024-12-27] MEDS: LORazepam 1 MG/0.5 ML injection IVP (11:31)
--- NOTE | 2024-12-27 12:49 | ECG_ITS ---
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 Measurements Intervals [place] Rate: 57 P: 69 WA: 177 QRS: 83 QRSD: 97 T: 76 QT: 361 QTc: 353 Interpretive Statements SINUS BRADYCARDIA WITH SINUS ARRHYTHMIA VOLTAGE CRITERIA FOR LVH [MEETS CRITERIA IN ONE OF: R(aVL), S(V1), R(V5), R(V5/V6)+S(V1)] Compared to ECG 12/27/2024 10:45:54 T-wave abnormality no longer present Electronically Signed On 12-28-2024 10:29:36 CDT by Rj Groves M.D. [email or web address] [id number]
--- NOTE | 2024-12-27 12:55 | CT_ITS ---
WS: [id number] CTA OF THE CHEST WITH PULMONARY EMBOLISM PROTOCOL TECHNIQUE: High-resolution contrast enhanced CTA of the chest with coronal and sagittal reformatted images with pulmonary embolism protocol. MIP images are also reviewed. CLINICAL INFORMATION: assess for PE, possible PNA COMPARISON: CTA 12/06/2024 DLP: 222.[address] scans at [facility] use at least one of these dose optimization techniques: automated exposure control; mA and/or kV adjustment per patient size (includes targeted exams where dose is matched to clinical indication); or iterative reconstruction. FINDINGS: Again seen is masslike neoplasm involving the LEFT hilum which results in bronchial narrowing. Proximal main pulmonary arteries are patent. Mild narrowing of the distal LEFT mainstem bronchus and proximal segmental bronchi similar in appearance to previous. Persistent compression LEFT upper lobe pulmonary arteries. A few small distal segmental and subsegmental filling defects in the RIGHT upper and lower lobe suspicious for pulmonary embolus. New from previous LEFT upper lobe remains well aerated. A few LEFT perihilar opacities unchanged. No evidence of new postobstructive pneumonia. Moderate thoracic kyphosis. Partially visualized hepatic metastasis unchanged since 12/06/2024 and better evaluated on the recent 12/06/2024 abdomen/pelvis CT. Small esophageal hiatal hernia. Adrenal glands are normal. Splenic artery calcifications. Aortic calcification. Normal caliber thoracic aorta. Coronary calcification. CT/CT angio chest PE protcl [id number] IMPRESSION: 1. 2 or 3 small segmental and subsegmental filling defects in the RIGHT upper and lower lobe suspicious for pulmonary embolus appears new from previous 2. Persistent LEFT hilar neoplasm with narrowing of the distal LEFT mainstem b ronchus unchanged since the recent study. Persistent compression of the LEFT up per lobe pulmonary arteries. 3. No evidence of new or progressive postobstructive pneumonia. 4. Subsegmental atelectasis in the lung bases. 5. Partially visualized hepatic metastasis. Notified Aureliano Huffman MD at 12/27/2024 2:24 PM.
--- NOTE | 2024-12-27 12:55 | USCV_ITS ---
Davidson Fran Age: 64 Gender: M : 1960 Exam Date: 12/27/2024 16:02 Ordering Phys: Aureliano Huffman MD Technologist: LEWIS Exam Location: [facility] [place] Indication: Tachyarrhythmia BP: 95 / 53 HR: 63 Rhythm: Sinus Technical Quality: Adequate MEASUREMENTS (Male / Female) Normal Values 2D ECHO LV Diastolic Diameter PLAX 5.0 cm 4.2 - 5.9 / 3.9 - 5.3 cm IVS Diastolic Thickness 1.0 cm 0.6 - 1.0 / 0.6 - 0.9 cm IVS Systolic Thickness 1.3 cm LVPW Diastolic Thickness 1.1 cm 0.6 - 1.0 / 0.6 - 0.9 cm LVPW Systolic Thickness 1.2 cm LVOT Diameter 2.0 cm LV Ejection Fraction 2D Teich 58.2 % LV Ejection Fraction MOD 4C 56.0 % LV Ejection Fraction MOD 2C 67.4 % LV Ejection Fraction 2C AL 69.4 % LA Diameter 3.1 cm RA Systolic Volume 4C AL 33.6 ml RA Systolic Volume 4C MOD 33.9 ml LA Sys Volume AL 52.5 cm cubed LA Sys Volume Index AL 28.6 cm cubed/m squared Aorta at Sinotubular Diameter 3.3 cm M-MODE LA Ao Ratio MM 0.9 AV Cusp Separation MM 1.8 cm DOPPLER AV Peak Velocity 183.7 cm/s LVOT Peak Velocity 189.0 cm/s AV Area Cont Eq vti 3.6 cm squared AV Area Cont Eq pk 3.4 cm squared MV Peak Velocity 95.0 cm/s MV Area PHT 2.6 cm squared Mitral E to A Ratio 0.9 TR Peak Velocity 91.0 cm/s TR Peak Gradient 3.3 mmHg TV Peak E Velocity 69.0 cm/s PV Peak Velocity 98.0 cm/s FINDINGS Left Ventricle Normal left ventricular cavity size. Normal left ventricular wall thickness. Normal left ventricular systolic function, EF 67%. Normal left ventricular diastolic function Right Ventricle Normal right ventricular size and systolic function Right Atrium Normal right atrial size Left Atrium Normal left atrial size Mitral Valve Normal mitral valve function Aortic Valve Mildly calcified aortic valve. No stenosis or regurgitation Tricuspid Valve Trace tricuspid valve regurgitation. Normal pulmonary pressure. Pulmonic Valve Normal pulmonic valve function Pericardium No pericardial effusion Aorta Normal aortic root and ascending aorta size IVC IVC not well-visualized CONCLUSIONS 1. Normal biventricular size and systolic function 2. Aortic valve sclerosis without stenosis Sebastian Roman MD, FACC (Electronically Signed) Final Date: 27 December 2024 21:46 S
--- NOTE | 2024-12-27 12:55 | USCV_ITS ---
Fran Davidson Age: 64 Gender: M : 1960 Exam Date: 12/27/2024 16:27 Ordering Phys: Aureliano Huffman MD Technologist: LEWIS [place] [facility] [place]: r/o dvt HISTORY: Lower extremity swelling. PROCEDURES: Venous duplex imaging was performed in bilateral lower extremities. The following venous structures were evaluated: common femoral vein, profunda vein, proximal portion of the greater saphenous vein, superficial femoral vein, and the popliteal vein. In addition, the posterior tibial and peroneal trunk were evaluated. Serial compression, augmentation maneuvers, and spectral Doppler flow evaluation were performed. FINDINGS: No evidence of DVT seen in any vessel visualized at this time. CONCLUSIONS No evidence of right lower extremity DVT. No evidence of left lower extremity DVT. Omid Trotter MD (Electronically Signed) Final Date: 27 December 2024 16:50 S
[2024-12-27 12:56] LABS: Free T4 Free Thyroxine 3.37 ng/dL (0.82-1.77)
--- NOTE | 2024-12-27 13:10 | P.HP_ITS ---
Providers/Chief Complaint 2 Chief Complaint: SOB, accelerated heartrate History of Present Illness Fran Davidson is a 64 year old male gentleman with metastatic non-small cell lung cancer (NSCLC) to liver and left mainstem bronchus, chronic obstructive pulmonary disease (COPD), peptic ulcer disease (PUD), and a [id number] smoking history who was evaluated in his oncology clinic today for several days of worsening dyspnea, lower-extremity swelling, poor oral intake, and constipation. In the clinic he was noted to be tachycardic in the 120s and was sent to the emergency department (ED), where electrocardiogram revealed new atrial fibrillation with rapid ventricular response (RVR). He received intravenous diltiazem and subsequently converted to sinus bradycardia in the 50s after a brief pause; an additional rate-controlling dose of [unclear] medication (likely metoprolol tartrate) was given. He denied chest pain, dizziness, or syncope. Blood pressures ranged 104/72?97/64 mm Hg; a small intravenous fluid bolus was administered. Oxygen saturation was 92 % on 3 L nasal cannula with respiratory rate 16/min; dyspnea improved as tachycardia resolved. Additional history: cough with scant sputum, no fevers or chills; chronic ankle pain/swelling worse on the left since a 2014 fracture; requires sleeping in a recliner for comfort. No current chemotherapy; awaiting liver biopsy in [place] but reports transportation difficulties. Lives alone and reports no alcohol or current tobacco use. Denies known medication allergies. In the ED, complete blood count showed mild thrombocytopenia; comprehensive metabolic panel largely normal except mild transaminase elevation (AST 48 U/L, ALT 54 U/L) and glucose 149 mg/dL. Thyroid-stimulating hormone (TSH) was suppressed at 0.02 mIU/L. Chest radiograph demonstrated increased left hilar opacity with streaky extension toward the left lower lobe concerning for tumor growth, obstructive pneumonia, and/or atelectasis. No leukocytosis or fever. The oncology port-a-cath is in place and accessed for labs. Review of Systems 2 Const: Denies: fever(s), chills, body aches or malaise ENMT: Denies: throat pain Card: Reports: edema and other (tachycardia); Denies: chest pain, pre-syncope, dyspnea on exertion or orthopnea Resp: Reports: dyspnea and productive cough; Denies: change in phlegm color or hemoptysis GI: Denies: abdominal pain, nausea, vomiting, diarrhea, constipation, hematochezia or melena : Denies: flank pain, difficulty urinating, urinary frequency or hematuria Musc: Denies: back pain, joint swelling or joint redness Skin/Breast: Denies: rash or new lesions Neuro: Denies: headache(s) or confusion Medications/Allergies Home Medications ?Medication ?Instructions ?Recorded ?Confirmed ?Last Taken ?Type sennosides 8.6 mg-docusate sodium 1 tab PO PRN PRN Con stipation 07/20/24 12/27/24 Unknown History 50 mg tablet (Stimulant Laxative Plus) prochlorperazine maleate 10 mg 10 mg PO Q4H PRN mild n ausea #30 10/04/24 12/27/24 Unknown Rx tablet (Compazine) tabs famotidine 20 mg tablet 20 mg PO BID #60 tabs 12/27/24 Unknown Rx lidocaine-prilocaine 2.5 %-2.5 % 1 applic Procurify .PhotoS[employer]ter PLEX #30 grams 11/09/24 12/27/24 Unknown Rx topical cream nicotine 21 mg/24 hr daily 1 patch transdermal DAILY t ob 11/15/24 12/27/24 12/26/24 Rx transdermal patch dependence #28 ea albuterol sulfate 90 mcg/actuation 2 puff inhalation Q 4H PRN 11/27/24 12/27/24 Unknown Rx aerosol inhaler (Ventolin HFA) shortness of breath or wheezing #8.5 grams ondansetron HCl 4 mg tablet 8 mg (2 x 4 mg) PO Q6H PRN nausea 11/27/24 12/27/24 Unknown Rx and vomiting #60 tabs oxycodone 30 mg tablet 30 mg PO Q4H PRN pain 30 day s #120 11/27/24 12/27/24 12/27/24 Rx tabs triamcinolone acetonide 0.1 % 1 applic topical TID PRN itching 11/28/24 12/27/24 Unknown Rx topical cream #15 grams oxycodone myristate 13.5 mg 13.5 mg PO Q12H 30 days #6 0 ea 12/13/24 12/27/24 Unknown Rx capsule sprinkle extend release 12hr(DON'T CRUSH) (Xtampza ER) lactulose 10 gram/15 mL oral 10 g (15 mL) PO Q8H PRN 0 12/27/24 12/27/24 12/26/24 Rx solution constipation #600 mL polyethylene glycol 3350 17 4 g PO DAILY PRN constipat ion 12/27/24 12/27/24 Unknown History gram/dose oral powder (Miralax) Allergies Allergy/AdvReac Type Severity Reaction Status Date / Time No Known Allergies Allergy Verified 12/27/24 09:18 PFSH Acute 2 PFSH: Medical History Abnormal CT lung screening Lung nodule seen on imaging study Smoker unmotivated to quit Started age 13 1/1 to 1 ppd PUD (peptic ulcer disease) COPD (chronic obstructive pulmonary disease) Surgical History H/O hernia repair Ventral Social History Smoking and tobacco/nicotine status: former use of tobacco/nicotine Alcohol intake: never Substance/Drug Use: current Substance/Drug use frequency: few times a week Vitals/I&O/Wt Last Vital Signs Temp 98.6 F 12/27/24 11:00 Pulse 134 H 12/27/24 11:00 Resp 16 12/27/24 11:00 BP 104/72 12/27/24 11:00 Pulse Ox 92 12/27/24 11:00 O2 Del Method Nasal Cannula 12/27/24 11:00 O2 Flow Rate 3 12/27/24 11:00 Physical Exam 2 Const: COMMON NORMALS: patient oriented x3 and alert GENERAL APPEARANCE: c ooperative ORIENTATION/CONSCIOUSNESS: Yes awake HENMT: COMMON NORMALS: oropharynx normal Neck/C-Spine: COMMON NORMALS: no JVD Resp: COMMON NORMALS: normal respiratory effort AUSCULTATION: wheezes Cardio: COMMON NORMALS: no JVD, regular rhythm, S1 normal heart sound present, S2 normal heart sound present and No murmurs present (Cardio) RHYTHM: r egular rhythm HEART SOUNDS: S1 normal heart sound present and S2 normal heart sound present GI: COMMON NORMALS: Normal to inspection, nondistended, normoactive bowel sounds present, Soft to palpation and non-tender PALPATION: Yes Soft to palpation Extremity: COMMON NORMALS: no joint enlargement and no pedal edema Neuro: COMMON NORMALS: patient oriented x3 and moves all extremities S ENSORIUM/ORIENTATION: Yes alert Skin: COMMON NORMALS: no rashes or lesions noted GENERAL SKIN EXAM: no rashes or lesions noted Data 12/27/24 10:51 12/27/24 10:51 A&P Assessment and plan 1. Atrial fibrillation with RVR: New-onset SVT reported atrial fibrillation with RVR in ED, converted to sinus bradycardia after IV diltiazem; differential includes sepsis, hypoxia from lung disease, thyroid dysfunction, pulmonary embolism, or cardiac structural disease. Reviewed vitals, CBC, CMP, troponin, TSH, chest x-ray, EKG, my interpretation sinus bradycardia after conversion from initial SVT, pending official read. Reviewed ED provider note, discussed with ED provider. - Check magnesium. Complete troponin EKG series. - Check free T4, free T3. - Monitor on telemetry for recurrent tachyarrhythmia - Obtain transthoracic echocardiogram to assess cardiac structure and function - Continue rate control as needed - Additional assessment for possibility of PE with increased risk with malignancy, assess for DVT with lower extremity duplex, discussed with him CT angiogram chest. Discussed risks with CAT scan including allergic reaction, although he has tolerated the scans in the past, discussed risk of contrast induced nephropathy. Requiring pain medication to be able to lay flat, did not respond to Toradol. Ordered IV Dilaudid dose. Plan: Abnormal thyroid function (low TSH) : TSH suppressed at 0.02 mIU/L; unclear etiology; hyperthyroidism could contribute to arrhythmia. - Check free T4 and free T3 to further evaluate thyroid status Shortness of breath : Dyspnea improved after heart-rate control but persists; likely multifactorial (COPD, tumor burden, possible pneumonia, possible pulmonary embolism). - Administer inhaled bronchodilator (albuterol) cautiously due to tachycardia risk - Consider inhaled corticosteroid (open-axis medication) Possible pneumonia / left lung opacity : Chest X-ray shows increased left hilar opacity with streaky changes; unclear if obstructive pneumonia versus tumor progression. - Order contrast-enhanced chest computed tomography (CT) to evaluate opacity and decide on need for antibiotics - Start antibiotics only if CT confirms pneumonia (deferred pending results) as per discussion with EMS otherwise no white, and no fever. Rule out pulmonary embolism : Underlying malignancy confers high venous thromboembolism risk; CT angiogram planned to exclude pulmonary embolism (PE). - Obtain CT pulmonary angiogram with intravenous contrast (patient counseled on renal risks) Lower extremity edema : Bilateral leg swelling (L>R); concern for deep-vein thrombosis (DVT) or heart failure related to new arrhythmia or cancer. - Order venous duplex ultrasound of lower extremities to assess for DVT - Follow-up echocardiogram. Metastatic non-small cell lung cancer : Known metastatic NSCLC; currently off chemotherapy and awaiting liver biopsy; disease progression versus infection under evaluation. - Continue for pending liver biopsy (patient aware of transportation issues) Constipation : Patient reports constipation, likely related to prior chemotherapy and decreased intake. PDMP PDMP Reviewed: Not Reviewed Attestations 2 Medical Necessity Statement*: Place in observation for additional assessment and management of new onset SVT reported A-fib with RVR in a gentleman with underlying lung cancer, additional assessment as above with lower extremity edema, assessment for possible VTE. and High MDM includes amount and/or complexity of data reviewed/ordered [ previous or external records, resulted lab(s)/test(s), ordered lab(s)/test(s) and other healthcare professional discussion] and described risk of complication, morbidity or mortality of management as documented Diagnoses Atrial fibrillation with RVR I48.91
[2024-12-27 13:14] LABS: Troponin 5 2HR 9.07 ng/L (0-15); Troponin 5 2HR Delta 0.07 ABS# (0-10)
[2024-12-27] MEDS: iohexol 350 mg/mL 500 mL Btl (per mL) IV (13:29)
[2024-12-27] MEDS: HYDROmorphone 0.5 MG/0.5 ML INJ 1 MG IVP (13:34)
[2024-12-27 14:21] LABS: Magnesium 2.1 mg/dL (1.7-2.3)
[2024-12-27] MEDS: heparin drip 25,000 UNIT/500 ML PREMIX 20 UNIT IV (15:08)
[2024-12-27] MEDS: heparin 5,000 unit/mL INJ 1 mL IVP (15:10)
[2024-12-27 16:40] LABS: Troponin 5 6HR 8.59 ng/L (0-15)
[2024-12-27 16:41] LABS: Troponin 5 6HR Delta -0.41 ng/L (0-12)
--- NOTE | 2024-12-27 16:49 | ECG_ITS ---
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 Measurements Intervals [place] Rate: 64 P: 57 [place]: 147 QRS: 79 QRSD: 93 T: 79 QT: 370 QTc: 384 Interpretive Statements SINUS RHYTHM MODERATE VOLTAGE CRITERIA FOR LVH, CONSIDER NORMAL VARIANT [MEETS CRITERIA IN ONE OF: R(aVL), S(V1), R(V5), R(V5/V6)+S(V1)] Compared to ECG 12/27/2024 11:02:59 Sinus bradycardia no longer present Sinus arrhythmia no longer present Electronically Signed On 12-28-2024 10:28:55 CDT by Rj Groves M.D. [email or web address] [id number]
[2024-12-27] MEDS: polyethylene glycol 3350 Pkt 17 gm PO (20:39)
[2024-12-27 23:09] LABS: Partial Thromboplastin Time 78.7 SECONDS (23.9-36.7)
[2024-12-28] VITALS (8 sets, daily range): BP systolic 112–129; BP diastolic 64–83; PULSE 57–80; RESP 18–25; TEMP 36.6–36.9; O2SAT 86–96
[2024-12-28 02:28] LABS: Hematocrit 40.7 % (37-53); Hemoglobin 13.00 g/dL (11.27-16.99); Mean Corpuscular HGB Conc 31.9 g/dL (30-55); Mean Corpuscular Hemoglobin 30.8 pg (27-33); Mean Corpuscular Volume 96.4 fl (82-101); Nucleated Red Blood Cells % 0 %; Platelet Count 123 10^3/cmm (157-399); Red Blood Count 4.22 10^6/uL (3.85-5.65); White Blood Count 4.54 10^3/uL (3.29-11.43)
[2024-12-28 02:50] LABS: Alanine Aminotransferase 50 U/L (0-41); Albumin Level 3.4 g/dL (3.5-5.2); Alkaline Phosphatase 66 U/L (40-130); Anion Gap 13.5 (5-19); Aspartate Amino Transferase 43 U/L (0-40); Blood Urea Nitrogen 16 mg/dL (8-23); Calcium 8.8 mg/dL (8.5-10.5); Carbon Dioxide 26 mmol/L (22-29); Chloride 102 mmol/L (98-107); Creatinine Clr Calc Pharmacy 88.7615; Globulin 3.6 g/dL (1.3-4.6); Glucose 114 mg/dL (65-115); Osmolality Calculated 286 mOsm/kg (285-295); Potassium 4.5 mmol/L (3.5-5.1); Sodium 137 mmol/L (136-145); Total Protein 7.0 g/dL (6.6-8.7)
[2024-12-28 04:49] LABS: Partial Thromboplastin Time 69.1 SECONDS (23.9-36.7)
--- NOTE | 2024-12-28 08:58 | P.DS_ITS ---
Discharge Providers Date of Admission: 12/27/24 13:27 Date of Discharge: December 28, 2024 Attending Provider at Admission: Aureliano Huffman Attending Provider at Discharge: Aureliano Huffman Diagnoses at Discharge Discharge Diagnosis 1. Atrial fibrillation with RVR: Reason for Visit Reason for Visit: SOB, accelerated heartrate Brief History: Fran Davidson is a 64 year old male gentleman with metastatic non-small cell lung cancer (NSCLC) to liver and left mainstem bronchus, chronic obstructive pulmonary disease (COPD), peptic ulcer disease (PUD), and a 13-bygy-hvvx smoking history who was evaluated in his oncology clinic today for several days of worsening dyspnea, lower-extremity swelling, poor oral intake, and constipation. In the clinic he was noted to be tachycardic in the 120s and was sent to the emergency department (ED), where electrocardiogram revealed new atrial fibrillation with rapid ventricular response (RVR). He received intravenous di ltiazem and subsequently converted to sinus bradycardia in the 50s after a brief pause; an additional rate-controlling dose of [unclear] medication (likely metoprolol tartrate) was given. He denied chest pain, dizziness, or syncope. Blood pressures ranged 104/72?97/64 mm Hg; a small intravenous fluid bolus was administered. Oxygen saturation was 92 % on 3 L nasal cannula with respiratory rate 16/min; dyspnea improved as tachycardia resolved. Additional history: cough with scant sputum, no fevers or chills; chronic ankle pain/swelling worse on the left since a 2014 fracture; requires sleeping in a recliner for comfort. No current chemotherapy; awaiting liver biopsy in [place] but reports transportation difficulties. Lives alone and reports no alcohol or current tobacco use. Denies known medication allergies. In the ED, complete blood count showed mild thrombocytopenia; comprehensive metabolic panel largely normal except mild transaminase elevation (AST 48 U/L, ALT 54 U/L) and glucose 149 mg/dL. Thyroid-stimulating hormone (TSH) was suppressed at 0.02 mIU/L. Chest radiograph demonstrated increased left hilar opacity with streaky extension toward the left lower lobe concerning for tumor growth, obstructive pneumonia, and/or atelectasis. No leukocytosis or fever. The oncology port-a-cath is in place and accessed for labs. Hospital Course Hospital Course He remained in sinus rhythm with sinus bradycardia for the most part in the 60s. He was found to have 2 or 3 small segmental and subsegmental filling defects on CT angiogram suggestive of pulmonary embolism and was started on anticoagulation with heparin drip which she tolerated without issue. No evidence of progression of pneumonia seen on CT. Echocardiogram was obtained and was unremarkable. His thyroid function was followed up as he had a low TSH at 0.02 obtained on earlier labs. Free T4 and T3 elevated with suspected subclinical hypothyroidism as he otherwise does not have symptoms apart from the episode of tachycardia with atrial fibrillation with RVR. TSH receptor antibodies are sent out and he is referred for radioiodine uptake test at thyroid ultrasound as well as to endocrinology. Home oxygen evaluation is requested at discharge. He knows to get in touch with the service at [place] with plans for liver biopsy needing to be delayed due to PE and initiation of anticoagulation. Physical Exam Const: COMMON NORMALS: patient oriented x3 and alert GENERAL APPEARANCE: cooperative ORIENTATION/CONSCIOUSNESS: Yes awake HENMT: COMMON NORMALS: oropharynx normal Neck/C-Spine: COMMON NORMALS: no JVD Resp: COMMON NORMALS: normal respiratory effort and clear to auscultation bilaterally AUSCULTATION: clear to auscultation bilaterally Cardio: COMMON NORMALS: no JVD, regular rhythm, S1 normal heart sound present, S2 normal heart sound present and No murmurs present (Cardio) RHYTHM: regular rhythm HEART SOUNDS: S1 normal heart sound present and S2 normal heart sound present GI: COMMON NORMALS: Normal to inspection, nondistended, normoactive bowel sounds present, Soft to palpation and non-tender PALPATION: Yes Soft to palpation Extremity: COMMON NORMALS: no joint enlargement GENERAL: Yes edema (mild) Neuro: COMMON NORMALS: patient oriented x3 and moves all extremities SENSORIUM/ORIENTATION: Yes alert Skin: COMMON NORMALS: no rashes or lesions noted GENERAL SKIN EXAM: no rashes or lesions noted Discharge Data Studies Completed and Pending Completed Studies During Hospitalization Category Date Time Status CTA chest [CT angio chest PE protcl [id number]] Stat Cat Scan 12/27/24 12:55 Completed XR chest 1V portable [id number] Stat Exams 12/27/24 10:49 [place] [id number] Routine Ultrasound 12/27/24 12:55 Completed CV. echo complete* [id number] Routine Ultrasound 12/27/24 12:55 Completed Pending at discharge Category Date Time Status Complete Blood Count w/Auto AM LABS Lab 12/29/24 04:00 Ordered Complete Blood Count w/Auto AM LABS Lab 12/30/24 04:00 Ordered Comprehensive Metabolic Panel AM LABS Lab 12/29/24 04:00 Ordered Comprehensive Metabolic Panel AM LABS Lab 12/30/24 04:00 Ordered PTT [Partial Thromboplastin Time] Timed Lab 12/28/24 13:00 Ordered TSH Receptor Binding Antibody Routine Lab 12/28/24 02:06 Received Radiology Impressions Chest X-Ray 12/27/24 10:49 Impression: 1. Increasing opacity left hilum with patchy opacity extending inferior to the surface of the left diaphragm which could represent increase in size of the left hilar mass with an obstructing pneumonia and/or atelectasis into the left lower lobe. Tube. Hyperinflation and atherosclerosis. Chest CTA 12/27/24 12:55 IMPRESSION: 1. 2 or 3 small segmental and subsegmental filling defects in the RIGHT upper and lower lobe suspicious for pulmonary embolus appears new from previous 2. Persistent LEFT hilar neoplasm with narrowing of the distal LEFT mainstem bronchus unchanged since the recent study. Persistent compression of the LEFT upper lobe pulmonary arteries. 3. No evidence of new or progressive postobstructive pneumonia. 4. Subsegmental atelectasis in the lung bases. 5. Partially visualized hepatic metastasis. Notified Aureliano Huffman MD at 12/27/2024 2:24 PM. Laboratory Results WBC 4.54 10^3/uL (3.29-11.43) 12/28/24 02:06 RBC 4.22 10^6/uL (3.85-5.65) 12/28/24 02:06 Hgb 13.00 g/dL (11.27-16.99) 12/28/24 02:06 Hct 40.7 % (37-53) 12/28/24 02:06 MCV 96.4 fl (82-101) 12/28/24 02:06 MCH 30.8 pg (27-33) 12/28/24 02:06 MCHC 31.9 g/dL (30-55) 12/28/24 02:06 RDW 12.9 % (12.1-15.1) 12/28/24 02:06 Plt Count 123 10^3/cmm (157-399) L 12/28/24 02:06 MPV 10.2 fL (7.4-10.4) 12/28/24 02:06 Neut % (Auto) 63.7 % 12/28/24 02:06 Lymph % (Auto) 16.7 % 12/28/24 02:06 Crane % (Auto) 12.3 % 12/28/24 02:06 Eos % (Auto) 6.6 % 12/28/24 02:06 Baso % (Auto) 0.7 % 12/28/24 02:06 Neut # (Auto) 2.89 10^3/uL (1.8-7.7) 12/28/24 02:06 Lymph # (Auto) 0.8 10^3/uL (0.8-4.8) 12/28/24 02:06 Crane # (Auto) 0.6 10^3/uL (0.2-0.9) 12/28/24 02:06 Eos # (Auto) 0.3 10^3/uL (0.0-0.8) 12/28/24 02:06 Baso # (Auto) 0.0 10^3/uL (0.0-0.1) 12/28/24 02:06 Nucleated RBC % (auto) 0 % 12/28/24 02:06 Nucleated RBCs # 0.0 /100WBC 12/28/24 02:06 APTT 69.1 SECONDS (23.9-36.7) H 12/28/24 04:31 Sodium 137 mmol/L (136-145) 12/28/24 02:06 Potassium 4.5 mmol/L (3.5-5.1) 12/28/24 02:06 Chloride 102 mmol/L (98-107) 12/28/24 02:06 Carbon Dioxide 26 mmol/L (22-29) 12/28/24 02:06 Anion Gap 13.5 (5-19) 12/28/24 02:06 BUN 16 mg/dL (8-23) 12/28/24 02:06 Creatinine 0.7 mg/dL (0.7-1.2) 12/28/24 02:06 GFR Calculation 112.8 mL/min (90-130) 12/28/24 02:06 Glucose 114 mg/dL (65-115) 12/28/24 02:06 Calculated Osmolality 286 mOsm/kg (285-295) 12/28/24 02:06 Calcium 8.8 mg/dL (8.5-10.5) 12/28/24 02:06 Magnesium 2.1 mg/dL (1.7-2.3) 12/27/24 10:51 Total Bilirubin 0.5 mg/dL (0.15-1.2) 12/28/24 02:06 AST 43 U/L (0-40) H 12/28/24 02:06 ALT 50 U/L (0-41) H 12/28/24 02:06 Alkaline Phosphatase 66 U/L (40-130) 12/28/24 02:06 Troponin T Baseline 9 ng/L (0-15) 12/27/24 10:51 Troponin T 120 Minute 9.07 ng/L (0-15) 12/27/24 12:34 Delta Troponin T 0.07 ABS# (0-10) 12/27/24 12:34 Troponin T Hi Sens 6Hr 8.59 ng/L (0-15) 12/27/24 16:00 Troponin T Hi Sens 6Hr Delta -0.41 ng/L (0-12) L 12/27/24 16:00 Total Protein 7.0 g/dL (6.6-8.7) 12/28/24 02:06 Albumin 3.4 g/dL (3.5-5.2) L 12/28/24 02:06 Globulin 3.6 g/dL (1.3-4.6) 12/28/24 02:06 Free T4 3.37 ng/dL (0.82-1.77) H 12/27/24 10:51 Free T3 9.8 PG/ML (2.0-4.4) H 12/27/24 12:34 Vitals Last Vital Signs Temp 98.5 F 12/28/24 08:00 Pulse 67 12/28/24 08:00 Resp 18 12/28/24 08:00 BP 127/77 12/28/24 08:00 Pulse Ox 96 12/28/24 08:00 O2 Del Method Nasal Cannula 12/28/24 08:00 O2 Flow Rate 3 12/28/24 08:00 Discharge Plan Discharge Patient Disposition: Home Condition: Stable Prescriptions: New Eliquis DVT-PE Treat 30D Start 5 mg (74 tabs) tablets,dose pack See Rx Instructions .ROUTE .COMPLEX Qty: 74 0RF Rx Instructions: orally per package directions - 10mg BID for 7 days then 5mg BID Spiriva Respimat 1.25 mcg/actuation mist 2.5 mcg inhalation QAM Qty: 4 0RF diltiazem HCl [Cardizem LA] 120 mg tablet extended release 24 hr 120 mg PO DAILY PRN (Reason: tachycardia) Qty: 30 0RF Rx Instructions: Tachycardia HR >100 at rest Continued prochlorperazine maleate [Compazine] 10 mg tablet 10 mg PO Q4H PRN (Reason: mild nausea) Qty: 30 3RF nicotine 21 mg/24 hr patch 24 hour 1 patch transdermal DAILY Qty: 28 1RF lactulose 10 gram/15 mL solution 10 g PO Q8H PRN (Reason: constipation) Qty: 600 6RF sennosides-docusate sodium [Stimulant Laxative Plus] 8.6-50 mg tablet 1 tab PO PRN PRN (Reason: Constipation) lidocaine-prilocaine 2.5-2.5 % cream 1 applic topical .COMPLEX Qty: 30 2RF Rx Instructions: Apply quarter-size amount to port site 30 minutes prior to access; cover with cling wrap famotidine 20 mg tablet 20 mg PO BID Qty: 60 0RF triamcinolone acetonide 0.1 % cream 1 applic topical TID PRN (Reason: itching) Qty: 15 0RF Xtampza ER 13.5 mg cap,sprinkl,ER12hr(DONT CRUSH) 13.5 mg PO Q12H 30 Days Qty: 60 0RF Rx Instructions: must administer with a meal/food ondansetron HCl 4 mg tablet 8 mg PO Q6H PRN (Reason: nausea and vomiting) Qty: 60 3RF albuterol sulfate [Ventolin HFA] 90 mcg/actuation HFA aerosol inhaler 2 puff inhalation Q4H PRN (Reason: shortness of breath or wheezing) Qty: 8.5 6RF oxycodone 30 mg tablet 30 mg PO Q4H PRN (Reason: pain) 30 Days Qty: 120 0RF polyethylene glycol 3350 [Miralax] 17 gram/dose powder 4 g PO DAILY PRN (Reason: constipation) Discharge Order = DC NOW: Discharge Order (Routine); Ordered 12/28/24 Ordered By: Aureliano Huffman Referrals: Amber Galeano NP [Nurse Practitioner, Family Practice] - 01/08/25 9:00 am Delisa Hauser DO [Physician, Oncology] - 01/03/25 9:00 am Sal Maldonado MD [Physician, Endocrinology] - 01/03/25 8:15 am Referral Note: Discharge Activity: Oxygen as instructed Patient Instructions: Diltiazem (By mouth) (Cardizem, Cardizem CD, Cardizem LA, Cardizem SR), Tiotropium (By breathing) (Spiriva, Spiriva Respimat), Apixaban (By mouth) (Eliquis), A-fib (Atrial Fibrillation) (DC), Hyperthyroidism (DC), COPD Stoplight, Opioid Safety, Patient Portal & Leoncio Instructions Activity Restrictions/Additional Instructions: Follow-up with your primary doctor and with oncology with regards to pulmonary emboli (small blood clots that have gone to your lungs). Continue blood thinner medication, as discussed be aware of risk of bleeding. Avoid injury. In case of concerning bleeding seek medical attention. Follow-up with your primary doctor also for additional assessment of hyperactive thyroid (hyperthyroidism). This may have been the trigger in addition to blood clots for the fast heart rate. In case of recurrent fast heart rate at rest take diltiazem 120 mg but do not take the medication if your heart rate is less than 60 or blood pressure less than 100/50 Please contact the service who was going to perform biopsy for your liver and let them know that due to sustaining blood clots you had to be started on a blood thinner medication. Blood thinner will need to be held prior to biopsy. Please use incentive spirometer at home to reduce atelectasis. Seek medical attention in case of worsening or new concerning symptoms. Discharge Attestations Time Spent in Discharge Care*: greater than 30 min Quality Metrics Clinical Quality Measures [ No reported AMI, CVA or VTE this stay] Coding Level of Care Code 74464 Total time (in minutes) for Discharge: 50 Diagnoses Atrial fibrillation with RVR I48.91
--- NOTE | 2024-12-28 09:37 | PC.CHAP ---
Pastoral Care Encounter/Spiritual Assessment Type of Contact [] Declined supervisor sulfuric acid plant visit [] Patient/Family/Request visit [] Outpatient visit [] Follow-up visit [] Physician referral [] Code/Alert [x] Routine visit [] Staff referral [] Actively dying [] Patient sleeping [] Family support [] [] Out of room [] Palliative care [] [] Receiving care in room [] Pre-surgical visit [] Trauma [] Long length of stay [] ICU visit [] Other: Relational/Emotional Strength [x] Patient feels connected with others/family/visitors/staff [] Distress [] Loneliness/isolation [] Abandonment Spirituality of Patient [x] Person of Bri [] Attends Mosque of their Bri [x] Believes in Prayer [] Reads Bible or Episcopalian materials [] There are Spiritual issues to be addressed Car Spotter Interventions [x] Prayer [x] Active listening [x] Non-anxious presence [x] Spiritual/emotional support [] Crisis/trauma care [] Spiritual counseling [] Bereavement support [] Provided bereavement packet [] Provided Bible/devotional materials [] Provided toy/stuffed animal, coloring book to patient or family member [] Provided Communion [] Anointing/[place] [] Salvation [x] Completed spiritual assessment [] Other: Impact on Illness or Injury [] Angry [] Fearful [] Anxious [] Often cries [] Exhaustion [] Unable to work [] Unable to attend scientologist [] Unable to walk/stand [] Unable to read [] Unable to drive [] Unable to eat/drink [] Unable to sleep [] Unable to be with family [] Patient intubated [] Other: Summary Time spent with patient 5 min
--- NOTE | 2024-12-28 14:54 | PC.NURSE ---
patient discharged to home. Instruction provided regarding follow up needs, new medications and need for thyroid check. patient verbalized understanding. IV and telemetry removed. Patient taken by wheelchair to private vehicle.
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
--- OUTSIDE RECORDS SUMMARY | 2024-12-29 03:18 | XMS_ITS | Clinical Summary ---
Author Organization [facility] Address [address] [place] [address] Phone Care Team Providers Care Economic Analyst Name Role Phone Unavailable Primary Care Provider [...] series) 2033 Medical Devices Implanted Type Area Mailroom Supervisor Device Identifier Shelf Expiration Date Model / Serial / Lot Log [id number] - Mesh Bard Inguinal Hernia - 1 - Graft Dermal Flex Hd [id number] Ultra Thick Implanted:Qty : 1 on 12/20/2009 Graft N/A: Abdomen MUSCULOSKELETAL TRANSPLANT FOU 07/01/2012 [id number] / [id number] / N/A Additional Health Concerns Infection Onset Date Last Indicated MRSA Comment:Nares 12/19/09; Abdomen 08/13/09 08/15/2009 08/15/2009
== END 2024-12-28 13:00 | disposition home or self-care (01) ==
LOC: ER 12:50 → CSU 14:22
PROVIDERS: Admitting Provider Internal Medicine; Emergency Provider Family Medicine; Visit Provider Internal Medicine
DX: I48.91 Unspecified atrial fibrillation (principal); C78.7 Secondary malignant neoplasm of liver and intrahepatic bile duct; C34.02 Malignant neoplasm of left main bronchus; J44.9 Chronic obstructive pulmonary disease, unspecified; K27.9 Peptic ulcer, site unspecified, unspecified as acute or chronic, without hemorrhage or perforation; R00.1 Bradycardia, unspecified; Z87.891 Personal history of nicotine dependence
CPT/HCPCS: 36415; 36591; 71045; 71275; 80053; 83516; 83735; 84439; 84481; 84484; 85025; 85730; 93005; 93306; 93970; 94640; 94760; 96365; 96366; 96367; 96375; 99214; 99291; 99292; G0378; J1171; J1644; J1885; J2060; J3490; J7614; J7626; J9999

== ENCOUNTER 2025-01-25 12:28 | Oncology outpatient (recurring) (ONCR) | payer MEDICAID, SELFPAY ==
[2025-01-04 08:40] LABS: Hematocrit 44.3 % (37-53); Hemoglobin 14.30 g/dL (11.27-16.99); Mean Corpuscular HGB Conc 32.3 g/dL (30-55); Mean Corpuscular Hemoglobin 29.9 pg (27-33); Mean Corpuscular Volume 92.7 fl (82-101); Nucleated Red Blood Cells % 0 %; Platelet Count 150 10^3/cmm (157-399); Red Blood Count 4.78 10^6/uL (3.85-5.65); White Blood Count 5.82 10^3/uL (3.29-11.43)
[2025-01-04 08:57] LABS: Alanine Aminotransferase 52 U/L (0-41); Albumin Level 3.8 g/dL (3.5-5.2); Alkaline Phosphatase 68 U/L (40-130); Anion Gap 10.1 (5-19); Aspartate Amino Transferase 40 U/L (0-40); Blood Urea Nitrogen 14 mg/dL (8-23); Calcium 9.6 mg/dL (8.5-10.5); Carbon Dioxide 31 mmol/L (22-29); Chloride 100 mmol/L (98-107); Creatinine Clr Calc Pharmacy 86.9901; Globulin 3.8 g/dL (1.3-4.6); Glucose 108 mg/dL (65-115); Osmolality Calculated 285 mOsm/kg (285-295); Potassium 4.1 mmol/L (3.5-5.1); Sodium 137 mmol/L (136-145); Total Protein 7.6 g/dL (6.6-8.7)
== END 2025-01-28 23:59 | disposition home or self-care (01) ==
PROVIDERS: Visit Provider Internal Medicine
DX: C34.32 Malignant neoplasm of lower lobe, left bronchus or lung (principal); D64.9 Anemia, unspecified; C78.7 Secondary malignant neoplasm of liver and intrahepatic bile duct; J43.1 Panlobular emphysema; I26.99 Other pulmonary embolism without acute cor pulmonale; Z87.891 Personal history of nicotine dependence; Z79.899 Other long term (current) drug therapy
CPT/HCPCS: 36415; 80053; 83615; 85025; 99213

== ENCOUNTER 2025-01-31 16:31 | Oncology outpatient (recurring) (ONCR) | payer MEDICAID, SELFPAY ==
[2025-01-31 16:50] LABS: INR 0.96 (0.8-1.2); Prothrombin Time 13.50 SECONDS (12.1-14.9)
== END 2025-02-27 23:59 | disposition home or self-care (01) ==
PROVIDERS: Visit Provider Internal Medicine
DX: C34.32 Malignant neoplasm of lower lobe, left bronchus or lung (principal); C78.7 Secondary malignant neoplasm of liver and intrahepatic bile duct; D64.9 Anemia, unspecified; E05.90 Thyrotoxicosis, unspecified without thyrotoxic crisis or storm; I48.91 Unspecified atrial fibrillation; F17.210 Nicotine dependence, cigarettes, uncomplicated; J43.1 Panlobular emphysema; J44.9 Chronic obstructive pulmonary disease, unspecified; Z79.899 Other long term (current) drug therapy; Z53.9 Procedure and treatment not carried out, unspecified reason; Z51.12 Encounter for antineoplastic immunotherapy; Z87.891 Personal history of nicotine dependence; G89.3 Neoplasm related pain (acute) (chronic); K59.00 Constipation, unspecified; R21 Rash and other nonspecific skin eruption; Z92.21 Personal history of antineoplastic chemotherapy; R03.0 Elevated blood-pressure reading, without diagnosis of hypertension; J20.9 Acute bronchitis, unspecified; Z71.6 Tobacco abuse counseling; R93.2 Abnormal findings on diagnostic imaging of liver and biliary tract; K76.9 Liver disease, unspecified; Z92.3 Personal history of irradiation; C34.90 Malignant neoplasm of unspecified part of unspecified bronchus or lung
CPT/HCPCS: 36415; 85610

== ENCOUNTER 2025-03-19 13:24 | Oncology outpatient (recurring) (ONCR) | payer MEDICAID, SELFPAY ==
[2025-03-01 13:44] LABS: Hematocrit 40.2 % (37-53); Hemoglobin 13.40 g/dL (11.27-16.99); Mean Corpuscular HGB Conc 33.3 g/dL (30-55); Mean Corpuscular Hemoglobin 31.1 pg (27-33); Mean Corpuscular Volume 93.3 fl (82-101); Nucleated Red Blood Cells % 0 %; Platelet Count 144 10^3/cmm (157-399); Red Blood Count 4.31 10^6/uL (3.85-5.65); White Blood Count 6.20 10^3/uL (3.29-11.43)
[2025-03-01 14:06] LABS: Alanine Aminotransferase 31 U/L (0-41); Albumin Level 4.1 g/dL (3.5-5.2); Alkaline Phosphatase 68 U/L (40-130); Anion Gap 12.9 (5-19); Aspartate Amino Transferase 56 U/L (0-40); Blood Urea Nitrogen 13 mg/dL (8-23); Calcium 8.9 mg/dL (8.5-10.5); Carbon Dioxide 30 mmol/L (22-29); Chloride 95 mmol/L (98-107); Creatinine Clr Calc Pharmacy 65.9781; Globulin 3.3 g/dL (1.3-4.6); Glucose 128 mg/dL (65-115); Osmolality Calculated 280 mOsm/kg (285-295); Potassium 3.9 mmol/L (3.5-5.1); Sodium 134 mmol/L (136-145); Total Protein 7.4 g/dL (6.6-8.7)
--- NOTE | 2025-03-19 14:03 | ECG_ITS ---
[facility]: 2025-[facility]19 Pat Name: Fran Davidson Department: Room: Gender: Male Pens And Pencils Dipper: : 1960 Requested By: Arsh Montelongo Order Number: [id number] Tran MD: Ras Arroyo M.D. Measurements Intervals [place] Rate: 41 P: 62 FL: 153 QRS: 80 QRSD: 102 T: 74 QT: 453 QTc: 375 Interpretive Statements SINUS BRADYCARDIA POSSIBLE LEFT VENTRICULAR HYPERTROPHY [VOLTAGE CRITERIA PLUS LAE OR QRS WIDENING] NONSPECIFIC T-WAVE ABNORMALITY Compared to ECG 12/27/2024 17:33:15 T-wave abnormality now present Sinus rhythm no longer present Electronically Signed On 03-20-2025 19:20:32 CDT by Ras Arroyo M.D. [email or web address]
[2025-03-19 14:06] LABS: Hematocrit 40.0 % (37-53); Hemoglobin 13.40 g/dL (11.27-16.99); Mean Corpuscular HGB Conc 33.5 g/dL (30-55); Mean Corpuscular Hemoglobin 30.2 pg (27-33); Mean Corpuscular Volume 90.3 fl (82-101); Nucleated Red Blood Cells % 0 %; Platelet Count 154 10^3/cmm (157-399); Red Blood Count 4.43 10^6/uL (3.85-5.65); White Blood Count 6.17 10^3/uL (3.29-11.43)
[2025-03-19 14:20] LABS: Alanine Aminotransferase 40 U/L (0-41); Albumin Level 4.1 g/dL (3.5-5.2); Alkaline Phosphatase 59 U/L (40-130); Anion Gap 9.9 (5-19); Aspartate Amino Transferase 79 U/L (0-40); Blood Urea Nitrogen 15 mg/dL (8-23); Calcium 8.8 mg/dL (8.5-10.5); Carbon Dioxide 31 mmol/L (22-29); Chloride 94 mmol/L (98-107); Creatinine Clr Calc Pharmacy 72.5759; Globulin 3.6 g/dL (1.3-4.6); Glucose 81 mg/dL (65-115); Osmolality Calculated 272 mOsm/kg (285-295); Potassium 3.9 mmol/L (3.5-5.1); Sodium 131 mmol/L (136-145); Total Protein 7.7 g/dL (6.6-8.7)
[2025-03-19 15:16] LABS: Uric Acid 5.1 mg/dL (3.4-7.0)
== END 2025-03-30 23:59 | disposition home or self-care (01) ==
PROVIDERS: Visit Provider Internal Medicine
DX: Z53.9 Procedure and treatment not carried out, unspecified reason; C34.32 Malignant neoplasm of lower lobe, left bronchus or lung; R94.31 Abnormal electrocardiogram [ECG] [EKG]
CPT/HCPCS: 36591; 80053; 83615; 84550; 85025; 93005; 99215

== ENCOUNTER 2025-03-28 01:04 | Emergency (ER) | payer MEDICAID, SELFPAY ==
--- OUTSIDE RECORDS SUMMARY | 2025-03-28 01:08 | XMS_ITS | Clinical Summary ---
Author Organization [facility] Address [address] [place] [address] Phone Care Team Providers Care Esthetician Spa Name Role Phone Unavailable Primary Care Provider [...] series) 2033 Medical Devices Implanted Type Area Site Coordinator Device Identifier Shelf Expiration Date Model / Serial / Lot Log [id number] - Mesh Bard Inguinal Hernia - 1 - Graft Dermal Flex Hd [id number] Ultra Thick Implanted:Qty : 1 on 12/20/2009 Graft N/A: Abdomen MUSCULOSKELETAL TRANSPLANT FOU 07/01/2012 [id number] / [id number] / N/A Additional Health Concerns Infection Onset Date Last Indicated MRSA Comment:Nares 12/19/09; Abdomen 08/13/09 08/15/2009 08/15/2009
--- NOTE | 2025-03-28 01:19 | ECG_ITS ---
[facility] Test Date: 2025-03-28 Pat Name: Fran Davidson Department: Room: Gender: Male Waterproofing Machine Operator: : 1960 Requested By: Jere Kiran Order Number: [id number] Tran MD: Sebastian Roman M.D. Measurements Intervals Dairy Rate: 56 P: 47 AR: 176 QRS: 62 QRSD: 97 T: 91 QT: 398 QTc: 387 Interpretive Statements SINUS BRADYCARDIA NONSPECIFIC T-WAVE ABNORMALITY Compared to ECG 03/19/2025 14:03:18 ST DEPRESSION NO LONGER PRESENT Electronically Signed On 03-29-2025 19:20:12 CDT by Sebastian Roman M.D. [email or web address]
[2025-03-28 01:24] VITALS: BP 152/99; PULSE 58; RESP 18; TEMP 36.6; O2SAT 92; BMI 26.4
[2025-03-28 01:33] VITALS: BP 137/93; PULSE 51; RESP 13; O2SAT 98
--- NOTE | 2025-03-28 01:37 | CTR_ITS ---
PROCEDURE INFORMATION: Exam: CTA Chest With Contrast Exam date and time: 03/28/2025 2:04 AM Age: 64 years old Clinical indication: Abdominal pain; Angina pectoris; Additional info: Met lung CA, worsening L cp, missed eliquis doses TECHNIQUE: Imaging protocol: Computed tomographic angiography of the chest with contrast. Exam focused on the arteries. 3D rendering (Not supervised by radiologist): MIP and/or 3D reconstructed images were created by the technologist. Radiation optimization: All CT scans at this facility use at least one of these dose optimization techniques: automated exposure control; mA and/or kV adjustment per patient size (includes targeted exams where dose is matched to clinical indication); or iterative reconstruction. Contrast material: OMNI 350; Contrast volume: 100 ml; Contrast route: INTRAVENOUS (IV); COMPARISON: CT angio chest PE protcl [id number] 12/27/2024 1:25 PM RADIATION DOSE METRICS: Total DLP (mGy-cm): 1083.59 FINDINGS: Tubes, catheters and devices: A right internal jugular approach implanted port catheter is identified. The catheter tip terminates in the SVC. Pulmonary arteries: No evidence of acute pulmonary emboli in the right lung. Aorta: Mild atherosclerotic changes of the thoracic aorta and its major branch vessels is noted. Lungs: Increased admixture artifact within the left main and upper/lower segmental pulmonary artery secondary to compression from left perihilar mass. Linear centralized filling defect extending into the left upper lobe segmental pulmonary artery, concerning for acute pulmonary embolus versus non-opacification from compression. This finding is similar in appearance to the prior examination limited opacification of segmental/subsegmental arteries of the left upper and lower lobes given vascular compression. Stable appearance of left perihilar soft tissue attenuation, consistent with known malignancy. Increased size of a thick rimmed 1.5 cm left upper lobe cavitary lesion (series 7, image 172), previously 7 mm in size. Centrilobular emphysematous changes are present. Paraseptal emphysematous changes are seen. Pleural spaces: Unremarkable. No pneumothorax. No pleural effusion. Heart: The heart is normal in size. No pericardial effusion. No evidence of acute right heart strain. Coronary arteries: Moderate to severe three-vessel coronary atherosclerosis present. Lymph nodes: Calcified mediastinal and/or/hilar lymph nodes consistent with prior granulomatous disease. No axillary lymphadenopathy is noted. No supraclavicular lymphadenopathy is noted. No mediastinal lymphadenopathy is noted. No right hilar lymphadenopathy. Bones/joints: Unremarkable. No acute fracture. Soft tissues: Unremarkable. Other findings: A few scattered additional diminutive nodules are stable. PROCEDURE INFORMATION: Exam: CT Abdomen And Pelvis With Contrast Exam date and time: 03/28/2025 2:04 AM Age: 64 years old Clinical indication: Abdominal pain; Angina pectoris; Additional info: Met lung CA, worsening L cp, missed eliquis doses TECHNIQUE: Imaging protocol: Computed tomography of the abdomen and pelvis with contrast. Radiation optimization: All CT scans at this facility use at least one of these dose optimization techniques: automated exposure control; mA and/or kV adjustment per patient size (includes targeted exams where dose is matched to clinical indication); or iterative reconstruction. Contrast material: OMNI 350; Contrast volume: 100 ml; Contrast route: INTRAVENOUS (IV); COMPARISON: CT abdomen pelvis w con* [id number] 04/17/2022 12:32 PM RADIATION DOSE METRICS: Total DLP (mGy-cm): 1083.59 FINDINGS: Liver: Stable 7 mm hepatic segment 4A hypoattenuating observations measuring higher than simple fluid attenuation. Increased soft tissue prominence along the medial capsular margin of hepatic segment 4A (series 5 image 21), measuring up to 1.8 cm. Interval decrease in size of a now wedge-shaped peripheral hypoattenuating lesion in hepatic segment 6 (series 5, image 32) now measuring 1.9 cm, previously 2.4 cm. Gallbladder and biliary ducts: Normal. No calcified stones. No ductal dilation. Pancreas: Normal. No ductal dilation. Spleen: Normal. No splenomegaly. Adrenal glands: Normal. No mass. Kidneys and ureters: Normal. No hydronephrosis. Stomach and bowel: Unremarkable. No obstruction. No mucosal thickening. Appendix: No evidence of appendicitis. Intraperitoneal space: See Lymph nodes finding. Vasculature: Moderate atherosclerosis of the abdominal aorta and major vessels is branching present. Moderate multifocal atherosclerosis of the pelvic vasculature and its major branching vessels is noted. Lymph nodes: No retroperitoneal lymphadenopathy. No mesenteric lymphadenopathy. No omental or peritoneal deposits. Urinary bladder: Unremarkable as visualized. Reproductive: Unremarkable as visualized. Bones/joints: Unremarkable. No acute fracture. Soft tissues: Enlarging lobulated in rim enhancing lesion in the right gluteal musculature measuring 3.3 x 4.0 cm, previously 1.2 cm. Other findings: THIS REPORT CONTAINS FINDINGS THAT MAY BE CRITICAL TO PATIENT CARE. The findings were verbally communicated via telephone with SHANE CAIN at 2:51 AM CDT on 03/28/2025. The findings were acknowledged and understood. CT/CT angio chest w abd pel w con IMPRESSION: 1. Increased admixture artifact in the left main pulmonary artery secondary to vascular compression. Stable appearance of filling defect extending into the left upper lobe segmental pulmonary artery, which may represent pulmonary embolus or non-opacification secondary to compression. Limited evaluation of segmental/subsegmental left upper and lower lobe pulmonary arteries given vascular compression. Thrombosis can not be excluded. 2. No evidence of acute pulmonary emboli in the right lung. 3. Stable appearance of left perihilar soft tissue attenuation, consistent with known malignancy. 4. Increased size of the cavitary thick rimmed left upper lobe pulmonary lesion measuring 1.5 cm. This could represent satellite malignancy. Isolated septic emboli could be considered. 5. Moderate to severe three-vessel coronary atherosclerosis. 6. Emphysema. IMPRESSION: 1. New 1.8 cm soft tissue attenuation along the Jamila capsular margin of hepatic segment 4A/right diaphragmatic crura, concerning for lymphadenopathy or metastatic lesion. 2. Decreased size of hepatic segment 6 lesion, which may represent posttreatment change. 3. Enlarging lobulated in rim enhancing lesion in the right gluteal musculature measuring 3.3 x 4.0 cm, previously 1.2 cm. 4. Stable 7 mm right hepatic segment 4A observation, indeterminate in the setting of known malignancy.
--- NOTE | 2025-03-28 01:37 | XRR_ITS ---
PROCEDURE INFORMATION: Exam: XR Chest Exam date and time: 03/28/2025 1:47 AM Age: 64 years old Clinical indication: Pain; Angina pectoris; Additional info: Lung CA, worsening L cp TECHNIQUE: Imaging protocol: Radiologic exam of the chest. Views: 1 view. COMPARISON: CT angio chest PE protcl [id number] 12/27/2024 1:25 PM FINDINGS: Tubes, catheters and devices: A right subclavian approach implanted port catheter is identified. The catheter tip terminates in the SVC. Lungs: Central and bibasilar predominant interstitial prominence is present. Cephalization of upper lobe vasculature, which may be seen in the setting of emphysema. Pleural spaces: Unremarkable. No pleural effusion. No pneumothorax. Heart/Mediastinum: Unremarkable. No cardiomegaly. Vasculature: Atherosclerotic changes of the aorta are noted. Bones/joints: Unremarkable. XR/XR chest 1V portable [id number] IMPRESSION: 1. Findings suggestive of mild pulmonary edema or interstitial pneumonia. 2. Emphysema.
[2025-03-28 01:53] LABS: Hematocrit 44.4 % (37-53); Hemoglobin 14.80 g/dL (11.27-16.99); Mean Corpuscular HGB Conc 33.3 g/dL (30-55); Mean Corpuscular Hemoglobin 31.0 pg (27-33); Mean Corpuscular Volume 93.1 fl (82-101); Nucleated Red Blood Cells % 0 %; Platelet Count 179 10^3/cmm (157-399); Red Blood Count 4.77 10^6/uL (3.85-5.65); White Blood Count 5.77 10^3/uL (3.29-11.43)
[2025-03-28] MEDS: morphine 4 mg/mL SDV 1 mL IVP (01:58)
[2025-03-28 02:02] LABS: Base Excess VBG 6.2 mmol/L (-3.0-3.0); Blood Gas Allen Test Pos; Blood Gas Operator Identificat BD; Blood Gas Sample Site VEIN; Blood Gas Sample Type Venous; HCO3 VBG 32.8 mmol/L (24-28); PCO2 VBG 54.0 mmHg (41-51); PO2 VBG 30.7 mmHg (25-40); Venous Blood Gas Hematocrit 41.9 % (42-52); pH VBG 7.39 (7.32-7.42)
[2025-03-28 02:07] LABS: Lactic Sepsis W/Reflex 1.0 mmol/L (0.5-2.2)
[2025-03-28 02:08] LABS: Troponin(5th) Baseline 40 ng/L (0-15)
[2025-03-28 02:17] LABS: Alanine Aminotransferase 40 U/L (0-41); Albumin Level 4.3 g/dL (3.5-5.2); Alkaline Phosphatase 70 U/L (40-130); Anion Gap 11.0 (5-19); Aspartate Amino Transferase 77 U/L (0-40); Blood Urea Nitrogen 16 mg/dL (8-23); CRP High Sensitivity Cardiac 0.290 mg/dL (0.0-0.3); Calcium 9.3 mg/dL (8.5-10.5); Carbon Dioxide 33 mmol/L (22-29); Chloride 93 mmol/L (98-107); Creatinine Clr Calc Pharmacy 63.5686; Globulin 4.0 g/dL (1.3-4.6); Glucose 98 mg/dL (65-115); Magnesium 2.4 mg/dL (1.7-2.3); NT Pro B Type Natriuretic Pept 174 pg/mL (0-125); Osmolality Calculated 277 mOsm/kg (285-295); Potassium 4.0 mmol/L (3.5-5.1); Sodium 133 mmol/L (136-145); Total Protein 8.3 g/dL (6.6-8.7)
[2025-03-28] MEDS: iohexol 350 mg/mL 500 mL Btl (per mL) IV ×2 (02:24→13:36)
[2025-03-28 02:41] LABS: Respiratory Syncytial Virus Ce NEGATIVE (Negative); SARS-CoV-2 PCR NEGATIVE (Negative)
[2025-03-28 03:03] VITALS: BP 139/94; PULSE 66; RESP 18; O2SAT 100
[2025-03-28 03:10] LABS: Troponin 5 2HR 35.03 ng/L (0-15)
[2025-03-28 03:13] LABS: Troponin 5 2HR Delta -4.97 ABS# (0-10)
[2025-03-28 03:30] VITALS: BP 111/87; PULSE 65; RESP 12; O2SAT 97
[2025-03-28 04:57] LABS: Glucose Urine UA Negative (Normal); Nitrate Urine Negative (Negative)
[2025-03-28 05:02] LABS: Add Urine Microscopic? YES
[2025-03-28 05:03] LABS: Specific Gravity, Urine 1.068 (1.005-1.030)
--- NOTE | 2025-03-28 06:14 | ED_ITS ---
HPI - SOB/Dyspnea 2 General: Chief Complaint: Shortness of Breath/Dyspnea Stated Complaint: CP Time Seen by Provider: 03/28/25 01:10 History of Present Illness: HPI Narrative: Patient is a 64-year-old male with a past medical history of lung cancer on 3 L of oxygen and immunotherapy who presents with acute worsening of chest pain and dyspnea over the past afternoon. The patient reports that the pain is more severe than their usual cancer-related pain and is associated with increased difficulty moving and shortness of breath. They require home oxygen at 3 liters and note that their symptoms have progressively worsened. The patient denies recent fevers, chills, or abdominal pain, and states that their usual long- acting pain medication (Percocet 30 mg) has not alleviated the pain. They are prescribed Eliquis but have not been taking all doses recently. The patient also notes increased swelling in both legs, which is more pronounced than usual, but denies a history of heart failure or kidney dysfunction. The patient expresses concern about their condition and fear of dying. Associated symptoms: Reports chest pain Related Data Home Medications ?Medication ?Instructions ?Recorded ?Confirmed sennosides 8.6 mg-docusate sodium 1 tab PO PRN PRN Con stipation 07/20/24 03/01/25 50 mg tablet (Stimulant Laxative Plus) polyethylene glycol 3350 17 4 g PO DAILY PRN constipat ion 12/27/24 03/01/25 gram/dose oral powder (Miralax) Previous Rx's ?Medication ?Instructions ?Recorded prochlorperazine maleate 10 mg 10 mg PO Q4H PRN mild n ausea #30 10/04/24 tablet (Compazine) tabs famotidine 20 mg tablet 20 mg PO BID #60 tabs lidocaine-prilocaine 2.5 %-2.5 % 1 applic PhotoBox PLEX #30 grams 11/09/24 topical cream nicotine 21 mg/24 hr daily 1 patch transdermal DAILY t ob 11/15/24 transdermal patch dependence #28 ea ondansetron HCl 4 mg tablet 8 mg (2 x 4 mg) PO Q6H PRN nausea 11/27/24 and vomiting #60 tabs triamcinolone acetonide 0.1 % 1 applic topical TID PRN itching 11/28/24 topical cream #15 grams apixaban 5 mg (74 tabs) tablets in See Rx Instructions PO .COMPLEX 12/28/24 a dose pack ([employer] DVT-PE Treat #74 ea 30D Start) diltiazem HCl 120 mg 120 mg PO DAILY PRN tachycar darren 12/28/24 tablet,extended release 24 hr #30 tabs (Cardizem LA) tiotropium bromide 1.25 2.5 mcg inhalation QAM #4 gr ams 12/28/24 mcg/actuation mist for inhalation (Spiriva Respimat) [facility] bed #1 ea 01/25/25 lactulose 10 gram/15 mL oral 10 g (15 mL) PO Q8H PRN 1 solution constipation #600 mL oxycodone 30 mg tablet 30 mg PO Q4H PRN pain 30 day s #120 03/08/25 tabs oxycodone myristate 13.5 mg 13.5 mg PO Q12H 30 days #6 0 ea 03/08/25 capsule sprinkle extend release 12hr(DON'T CRUSH) (Xtampza ER) albuterol sulfate 90 mcg/actuation 2 inh inhalation QI D PRN shortness 03/14/25 aerosol inhaler (Ventolin HFA) of breath or wheezing # 8.5 grams Allergies Allergy/AdvReac Type Severity Reaction Status Date / Time No Known Allergies Allergy Verified 03/28/25 01:33 Review of Systems 2 General: Reports: 10 or more systems reviewed and unremarkable except in HPI and below Const: Reports: fatigue Card: Reports: chest pain Resp: Reports: dyspnea and non-productive cough PFS ED 2 PFSH: Medical History (Updated 03/28/25 @ 06:12 by Jere Kiran DO) Abnormal CT lung screening Lung nodule seen on imaging study Smoker unmotivated to quit Started age 13 1/2 to 1 ppd PUD (peptic ulcer disease) COPD (chronic obstructive pulmonary disease) Surgical History H/O hernia repair Ventral Social History Smoking and tobacco/nicotine status: former use of tobacco/nicotine Alcohol intake: never Substance/Drug Use: current Substance/Drug use frequency: few times a week Physical Exam 2 Narrative: EXAM NARRATIVE: Patient chronically ill-appearing, saturating well on home 3 L of oxygen, normotensive, afebrile, no acute distress. Resting comfortably in bed on arrival, breath sounds severely decreased but no obvious wheezes or crackles. Gets mildly short of breath after a few words but no retractions, no severe increased work of breathing, not in respiratory distress. Normotensive, no leg swelling, slightly delayed cap refill. GCS 15. Course 2 Vital Signs: Vital signs: Vital Signs Temperature 97.9 F 03/28/25 01:24 Pulse Rate 65 03/28/25 03:30 Respiratory Rate 12 03/28/25 03:30 Blood Pressure 111/87 03/28/25 03:30 Pulse Oximetry 97 03/28/25 03:30 Oxygen Delivery Me thod Room Air 03/28/25 01:24 MDM - SOB/Dyspnea Medical Decision Making -ddx: Lung cancer progression, PE, ACS, dysrhythmia, pneumothorax, URI, pneumonia, pericarditis, pleurisy - Patient with metastatic cancer that has been progressing despite chemotherapy, recently found to have a liver met. Has been on and off his Eliquis, recent travel, abrupt worsening today seemingly so we will order CTA PE, cardiac and infectious labs and reassess. - Call from radiology regarding his CTA PE, stated that he had some opacification of his left upper lobe vasculature, stated this was probably secondary to vascular compression from mass effect of the cancer but cannot rule out that it was a PE but there is no right heart strain. Otherwise no obvious pneumonia or fluid overload. EKG with no ischemic changes but troponins mildly elevated from baseline, probably secondary to his overall work of breathing, worsening of his cancer, no complaints concerning for ACS at this time but with possible PE this was mildly concerning and so offered admission to the hospital but patient for continued pain control, clarification over the status of his cancer and watching his cardiac and respiratory status but patient wanted to go home, states he does not know how long he has left and would rather be in the comfort of his own home which seems reasonable he is GCS 15, and agreeable to restarting his Eliquis, already has plenty of pain control at home, call the printing equipment mechanic and he came down and had an extensive conversation with patient and will set up home hospice to come evaluate him to which patient was amenable to, patient was able to ambulate on his home nasal cannula without any desaturations he had no complaints of chest pain on reevaluation and so in accordance with his wishes he was discharged home with very strict return precautions and will have follow-up with hospice later today. Lab Data 03/28/25 00:17 03/28/25 00:17 Labs/Radiology: Radiology Impressions Chest X-Ray 03/28/25 01:37 IMPRESSION: 1. Findings suggestive of mild pulmonary edema or interstitial pneumonia. 2. Emphysema. Chest/Abdomen/Pelvis CT 03/28/25 01:37 IMPRESSION: 1. Increased admixture artifact in the left main pulmonary artery secondary to vascular compression. Stable appearance of filling defect extending into the left upper lobe segmental pulmonary artery, which may represent pulmonary embolus or non-opacification secondary to compression. Limited evaluation of segmental/subsegmental left upper and lower lobe pulmonary arteries given vascular compression. Thrombosis can not be excluded. 2. No evidence of acute pulmonary emboli in the right lung. 3. Stable appearance of left perihilar soft tissue attenuation, consistent with known malignancy. 4. Increased size of the cavitary thick rimmed left upper lobe pulmonary lesion measuring 1.5 cm. This could represent satellite malignancy. Isolated septic emboli could be considered. 5. Moderate to severe three-vessel coronary atherosclerosis. 6. Emphysema. IMPRESSION: 1. New 1.8 cm soft tissue attenuation along the Jamila capsular margin of hepatic segment 4A/right diaphragmatic crura, concerning for lymphadenopathy or metastatic lesion. 2. Decreased size of hepatic segment 6 lesion, which may represent posttreatment change. 3. Enlarging lobulated in rim enhancing lesion in the right gluteal musculature measuring 3.3 x 4.0 cm, previously 1.2 cm. 4. Stable 7 mm right hepatic segment 4A observation, indeterminate in the setting of known malignancy. Laboratory Results WBC 5.77 10^3/uL (3.29-11.43) 03/28/25 00:17 RBC 4.77 10^6/uL (3.85-5.65) 03/28/25 00:17 Hgb 14.80 g/dL (11.27-16.99) 03/28/25 00:17 Hct 44.4 % (37-53) 03/28/25 00:17 MCV 93.1 fl (82-101) 03/28/25 00:17 MCH 31.0 pg (27-33) 03/28/25 00:17 MCHC 33.3 g/dL (30-55) 03/28/25 00:17 RDW 15.4 % (12.1-15.1) H 03/28/25 00:17 Plt Count 179 10^3/cmm (157-399) 03/28/25 00:17 MPV 9.3 fL (7.4-10.4) 03/28/25 00:17 Neut % (Auto) 79.8 % 03/28/25 00:17 Lymph % (Auto) 10.2 % 03/28/25 00:17 [place] % (Auto) 7.3 % 03/28/25 00:17 Eos % (Auto) 1.7 % 03/28/25 00:17 Baso % (Auto) 0.7 % 03/28/25 00:17 Neut # (Auto) 4.60 10^3/uL (1.8-7.7) 03/28/25 00:17 Lymph # (Auto) 0.6 10^3/uL (0.8-4.8) L 03/28/25 00:17 [place] # (Auto) 0.4 10^3/uL (0.2-0.9) 03/28/25 00:17 Eos # (Auto) 0.1 10^3/uL (0.0-0.8) 03/28/25 00:17 Baso # (Auto) 0.0 10^3/uL (0.0-0.1) 03/28/25 00:17 Nucleated RBC % (auto) 0 % 03/28/25 00:17 Nucleated RBCs # 0.0 /100WBC 03/28/25 00:17 ESR 4 mm/hr (0-10) 03/28/25 00:17 Specimen Type Venous 03/28/25 01:50 Sample Site Vein 03/28/25 01:50 Mickey Test Pos 03/28/25 01:50 VBG pH 7.39 (7.32-7.42) 03/28/25 01:50 VBG pCO2 54.0 mmHg (41-51) H 03/28/25 01:50 VBG pO2 30.7 mmHg (25-40) 03/28/25 01:50 VBG HCO3 32.8 mmol/L (24-28) H 03/28/25 01:50 VBG Base Excess 6.2 mmol/L (-3.0-3.0) H 03/28/25 01:50 VBG Hematocrit 41.9 % (42-52) L 03/28/25 01:50 Admissions Director ID Bd 03/28/25 01:50 Sodium 133 mmol/L (136-145) L 03/28/25 00:17 Potassium 4.0 mmol/L (3.5-5.1) 03/28/25 00:17 Chloride 93 mmol/L (98-107) L 03/28/25 00:17 Carbon Dioxide 33 mmol/L (22-29) H 03/28/25 00:17 Anion Gap 11.0 (5-19) 03/28/25 00:17 BUN 16 mg/dL (8-23) 03/28/25 00:17 Creatinine 1.1 mg/dL (0.7-1.2) 03/28/25 00:17 GFR Calculation 67.0 mL/min (90-130) L 03/28/25 00:17 Glucose 98 mg/dL (65-115) 03/28/25 00:17 Calculated Osmolality 277 mOsm/kg (285-295) L 03/28/25 00:17 Lactic Acid 1.0 mmol/L (0.5-2.2) 03/28/25 00:17 Calcium 9.3 mg/dL (8.5-10.5) 03/28/25 00:17 Magnesium 2.4 mg/dL (1.7-2.3) H 03/28/25 00:17 Total Bilirubin 0.7 mg/dL (0.15-1.2) 03/28/25 00:17 AST 77 U/L (0-40) H 03/28/25 00:17 ALT 40 U/L (0-41) 03/28/25 00:17 Alkaline Phosphatase 70 U/L (40-130) 03/28/25 00:17 Troponin T Baseline 40 ng/L (0-15) H 03/28/25 00:17 Troponin T 120 Minute 35.03 ng/L (0-15) H 03/28/25 02:45 Delta Troponin T -4.97 ABS# (0-10) L 03/28/25 02:45 C-React Prot High Sens 0.290 mg/dL (0.0-0.3) 03/28/25 00:17 NT-Pro-B Natriuret Pep 174 pg/mL (0-125) H 03/28/25 00:17 Total Protein 8.3 g/dL (6.6-8.7) 03/28/25 00:17 Albumin 4.3 g/dL (3.5-5.2) 03/28/25 00:17 Globulin 4.0 g/dL (1.3-4.6) 03/28/25 00:17 Urine Color Yellow (Yellow) 03/28/25 04:45 Urine Appearance Clear (CLEAR) 03/28/25 04:45 Urine pH 7.0 (5-7) 03/28/25 04:45 Ur Specific [place] 1.068 (1.005-1.030) H 03/28/25 04:45 Urine Protein Trace (Negative) A 03/28/25 04:45 Urine Glucose (UA) Negative (Normal) 03/28/25 04:45 Urine Ketones Negative (Negative) 03/28/25 04:45 Urine Blood Negative (Negative) 03/28/25 04:45 Urine Nitrate Negative (Negative) 03/28/25 04:45 Urine Bilirubin Negative (Negative) 03/28/25 04:45 Urine Urobilinogen 1.0 mg/dL (Negative) 03/28/25 04:45 Ur Leukocyte Esterase Negative (Negative) 03/28/25 04:45 Urine RBC 0-2 /hpf (0-2) 03/28/25 04:45 Urine WBC 0-5 /hpf (0-5) 03/28/25 04:45 Ur Squamous Epith Cells 0-5 /hpf (0-5) 03/28/25 04:45 Amorphous Sediment Not Reportable 03/28/25 04:45 Urine Bacteria None seen /hpf (NONE) 03/28/25 04:45 Hyaline Casts 0-4 /lpf H 03/28/25 04:45 Influenza A (PCR) Negative (Negative) 03/28/25 01:57 Influenza Type B (PCR) Negative (Negative) 03/28/25 01:57 RSV (PCR) Negative (Negative) 03/28/25 01:57 SARS-CoV-2 (PCR) Negative (Negative) 03/28/25 01:57 All radiology interpretation(s) finalized by discharge EKG Data EKG 1: Interpretation: Sinus bradycardia 58 bpm, no KS, QRS or QTc prolongation. No ST elevation or depression Discharge Plan Discharge Patient Disposition: Home Clinical Impression: Chronic hypoxic respiratory failure Metastatic lung cancer (metastasis from lung to other site) Qualifiers: Laterality: right Qualified Code(s): C34.91 - Malignant neoplasm of unspecified part of right bronchus or lung Condition: Stable Prescriptions: No Action prochlorperazine maleate [Compazine] 10 mg tablet 10 mg PO Q4H PRN (Reason: mild nausea) Qty: 30 3RF nicotine 21 mg/24 hr patch 24 hour 1 patch transdermal DAILY Qty: 28 1RF sennosides-docusate sodium [Stimulant Laxative Plus] 8.6-50 mg tablet 1 tab PO PRN PRN (Reason: Constipation) lidocaine-prilocaine 2.5-2.5 % cream 1 applic topical .COMPLEX Qty: 30 2RF Rx Instructions: Apply quarter-size amount to port site 30 minutes prior to access; cover with cling wrap famotidine 20 mg tablet 20 mg PO BID Qty: 60 0RF triamcinolone acetonide 0.1 % cream 1 applic topical TID PRN (Reason: itching) Qty: 15 0RF ondansetron HCl 4 mg tablet 8 mg PO Q6H PRN (Reason: nausea and vomiting) Qty: 60 3RF (DME) electric hospital bed See Rx Instructions .Route .MEDSUPPLY Qty: 1 0RF Rx Instructions: As directed lactulose 10 gram/15 mL solution 10 g PO Q8H PRN (Reason: constipation) Qty: 600 6RF oxycodone 30 mg tablet 30 mg PO Q4H PRN (Reason: pain) 30 Days Qty: 120 0RF Xtampza ER 13.5 mg cap,sprinkl,ER12hr(DONT CRUSH) 13.5 mg PO Q12H 30 Days Qty: 60 0RF Rx Instructions: must administer with a meal/food albuterol sulfate [Ventolin HFA] 90 mcg/actuation HFA aerosol inhaler 2 inh inhalation QID PRN (Reason: shortness of breath or wheezing) Qty: 8.5 11RF polyethylene glycol 3350 [Miralax] 17 gram/dose powder 4 g PO DAILY PRN (Reason: constipation) Eliquis DVT-PE Treat 30D Start 5 mg (74 tabs) tablets,dose pack See Rx Instructions .ROUTE .COMPLEX Qty: 74 0RF Rx Instructions: orally per package directions - 10mg BID for 7 days then 5mg BID Spiriva Respimat 1.25 mcg/actuation mist 2.5 mcg inhalation QAM Qty: 4 0RF diltiazem HCl [Cardizem LA] 120 mg tablet extended release 24 hr 120 mg PO DAILY PRN (Reason: tachycardia) Qty: 30 0RF Rx Instructions: Tachycardia HR >100 at rest Discharge Orders: Discharge ED (Routine); Ordered 03/28/25 Ordered By: Jere Kiran [facility] [Outside] Clinical Impression: Metastatic lung cancer (metastasis from lung to other site) Discharge Diet: Usual diet Discharge Activity: Resume usual activity Patient Instructions: Opioid Safety, Pain Management, Patient Portal & [place] Instructions Activity Restrictions/Additional Instructions: You were seen for your chest pain and worsening shortness of breath, you were evaluated with CT scans and laboratory studies that showed progression of your cancer and mild elevation of your heart enzymes but in further discussion with you you wish to go home. It is essential that you resume taking your Eliquis (blood thinner). A member of the hospice team will get into contact with you later today to further discuss the status of her cancer and all things pertaining to this. Continue to take your other medications as previously prescribed. Return to the ED with worsening shortness of breath, severe chest pains, fevers, extreme weakness, any other emergent concerns. Print Language: Urdu Coding Level of Care Code ED Powder Hand for Afua Moncada
== END 2025-03-28 06:24 | disposition home or self-care (01) ==
PROVIDERS: Emergency Provider Student in an Organized Health Care Education/Training Program
DX: J96.11 Chronic respiratory failure with hypoxia (principal); Z99.81 Dependence on supplemental oxygen; J44.9 Chronic obstructive pulmonary disease, unspecified; C34.90 Malignant neoplasm of unspecified part of unspecified bronchus or lung; C34.91 Malignant neoplasm of unspecified part of right bronchus or lung; C78.7 Secondary malignant neoplasm of liver and intrahepatic bile duct; Z11.52 Encounter for screening for COVID-19; Z79.01 Long term (current) use of anticoagulants; Z87.891 Personal history of nicotine dependence
CPT/HCPCS: 71045; 71275; 74177; 80053; 81001; 82803; 83605; 83735; 83880; 84484; 85025; 85651; 86141; 87637; 93005; 96374; 99285; J2270

== ENCOUNTER 2025-04-09 09:21 | Emergency (ER) | payer MEDICAID, SELFPAY ==
[2025-04-09] VITALS (11 sets, daily range): BP systolic 99–136; BP diastolic 66–90; PULSE 49–60; RESP 14–28; TEMP 36.7; O2SAT 87–99
--- NOTE | 2025-04-09 09:23 | XR_ITS ---
WS: [id number] Exam: XR chest 1V portable [id number] Date/Time of Exam: 04/09/2025 9:43 AM Reason For Exam: dyspnea/cough Comparison 12/27/2024. No consolidating infiltrates or pneumothorax. Chronic interstitial changes and honeycombing noted. Several emphysematous blebs are noted in the upper lung zones. Heart size top limits normal. The mediastinum is normal in contour. A RIGHT subclavian port ends in the lower one third of the SVC in good position. Levoscoliosis of the thoracic spine. XR/XR chest 1V portable [id number] IMPRESSION: 1. No acute cardiopulmonary finding. 2. Advanced changes of fibrosis and honeycombing and emphysema.
--- NOTE | 2025-04-09 09:23 | ECG_ITS ---
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 Measurements Intervals [place] Rate: 52 P: 40 [place]: 176 QRS: 52 QRSD: 98 T: 61 QT: 410 QTc: 383 Interpretive Statements SINUS BRADYCARDIA NONSPECIFIC T-WAVE ABNORMALITY Compared to ECG 03/28/2025 01:19:58 No significant changes Electronically Signed On 04-09-2025 18:11:49 LINUX SUPPORT ENGINEER by Ras Arroyo M.D. [email or web address] [id number]
--- NOTE | 2025-04-09 09:27 | ED_ITS ---
HPI - General Adult 2 General: Chief complaint: Shortness of Breath/Dyspnea Stated complaint: SOB Time Seen by Provider: 04/09/25 09:27 History of Present Illness: 64-year-old male presents emergency room complaining of shortness of breath and left-sided rib pain. He has a known history of lung cancer he was seen at [facility] last week where he gets his chemotherapy he had fallen and had a fractured sixth rib per his report. He is chronically on 3 L and is on immune therapy for his cancer. He is continue to have pain his chronic swelling his lower extremities. He was on Eliquis previously for DVT/PE but this was stopped evidently in [facility] recently. CTA of his chest done December 27, 2024 showed small subsegmental PEs. Venous duplex did not show any DVT at that time. Associated symptoms: Reports dyspnea; Deny chest pain or rash Related Data Home Medications ?Medication ?Instructions ?Recorded ?Confirmed sennosides 8.6 mg-docusate sodium 1 tab PO PRN PRN Con stipation 07/20/24 04/09/25 50 mg tablet (Stimulant Laxative Plus) polyethylene glycol 3350 17 17 g PO DAILY PRN constipa tion 12/27/24 04/09/25 gram/dose oral powder (Miralax) tiotropium bromide 2.5 1 puff inhalation QAM 04/09/25 mcg/actuation mist for inhalation (Spiriva Respimat) Previous Rx's ?Medication ?Instructions ?Recorded prochlorperazine maleate 10 mg 10 mg PO Q4H PRN mild n ausea #30 10/04/24 tablet (Compazine) tabs lidocaine-prilocaine 2.5 %-2.5 % 1 applic topical .[employer] PLEX #30 grams 11/09/24 topical cream nicotine 21 mg/24 hr daily 1 patch transdermal DAILY t ob 11/15/24 transdermal patch dependence #28 ea triamcinolone acetonide 0.1 % 1 applic topical TID PRN itching 11/28/24 topical cream #15 grams apixaban 5 mg (74 tabs) tablets in See Rx Instructions PO .COMPLEX 12/28/24 a dose pack (Eliquis DVT-PE Treat #74 ea 30D Start) diltiazem HCl 120 mg 120 mg PO DAILY PRN tachycar darren 12/28/24 tablet,extended release 24 hr #30 tabs (Cardizem LA) [facility] bed #1 ea 01/25/25 lactulose 10 gram/15 mL oral 10 g (15 mL) PO Q8H PRN 1 solution constipation #600 mL oxycodone 30 mg tablet 30 mg PO Q4H PRN pain 30 day s #120 03/08/25 tabs oxycodone myristate 13.5 mg 13.5 mg PO Q12H 30 days #6 0 ea 03/08/25 capsule sprinkle extend release 12hr(DON'T CRUSH) (Xtampza ER) albuterol sulfate 90 mcg/actuation 2 inh inhalation QI D PRN shortness 03/14/25 aerosol inhaler (Ventolin HFA) of breath or wheezing # 8.5 grams albuterol sulfate 90 mcg/actuation 2 inh inhalation Q4 H PRN shortness 04/09/25 aerosol inhaler of breath or wheezing #18 gr ams doxycycline hyclate 100 mg capsule 100 mg PO BID 10 da ys #20 caps 04/09/25 guaifenesin 600 mg tablet, 600 mg PO BID #20 tabs 03/31 extended release 12 hr (Mucinex) Allergies Allergy/AdvReac Type Severity Reaction Status Date / Time No Known Allergies Allergy Verified 03/28/25 01:33 Review of Systems 2 Const: Denies: fever(s) or chills Card: Denies: chest pain Resp: Reports: dyspnea GI: Denies: abdominal pain : Denies: dysuria, urinary frequency or urinary urgency Musc: Denies: neck pain or back pain Skin/Breast: Denies: rash PFSH ED 2 PFSH: Medical History Abnormal CT lung screening Lung nodule seen on imaging study Smoker unmotivated to quit Started age 13 1/2 to 1 ppd PUD (peptic ulcer disease) COPD (chronic obstructive pulmonary disease) Surgical History H/O hernia repair Ventral Social History Smoking and tobacco/nicotine status: former use of tobacco/nicotine Alcohol intake: never Substance/Drug Use: current Substance/Drug use frequency: few times a week Physical Exam 2 Const: GENERAL APPEARANCE: cooperative ORIENTATION/CONSCIOUSNESS: Yes awake, Yes oriented to person, Yes oriented to place and Yes oriented to time HENMT: COMMON NORMALS: normocephalic, atraumatic and hearing grossly normal bilaterally HEAD & SCALP: normocephalic and atraumatic Resp: COMMON NORMALS: normal respiratory effort, No retractions, No use of accessory muscles and clear to auscultation bilaterally AUSCULTATION: clear to auscultation bilaterally Cardio: COMMON NORMALS: regular rate, regular rhythm and No murmurs present (Cardio) RATE: regular rate RHYTHM: regular rhythm GI: COMMON NORMALS: Soft to palpation and No hepatosplenomegaly present A USCULTATION: Yes normoactive bowel sounds PALPATION: Yes Soft to palpation, No Tenderness to palpation present (GI), No Guarding due to palpation present (GI) and Yes No hepatosplenomegaly present Extremity: COMMON NORMALS: normal to inspection, capillary refill normal, no clubbing, cyanosis or edema, no calf tenderness and no pedal edema Neuro: SENSORIUM/ORIENTATION: Yes oriented to person, Yes oriented to place and Yes oriented to time Skin: COMMON NORMALS: no rashes or lesions noted GENERAL SKIN EXAM: no rashes or lesions noted Course 2 Vital Signs: Vital signs: Vital Signs Temperature 98.0 F 04/09/25 09:26 Pulse Rate 52 L 04/09/25 12:05 Respiratory Rate 14 04/09/25 12:05 Blood Pressure 99/66 04/09/25 12:05 Pulse Oximetry 90 04/09/25 12:05 Oxygen Delivery Me thod Nasal Cannula 04/09/25 12:05 Oxygen Flow Rate 3 04/09/25 11:15 MDM - General Adult Medical Decision Making CT reviewed no PE discussed Dr. Huerta who is on-call for pulmonology. She recommends outpatient bronchoscopy she can do it on Wednesday which is in about 2 days. Will discharge patient home on doxycycline as well as nebulizer. Continue pain medications prescribed previously additionally she recommended Mucinex. They will make arrangements for him to follow-up in the pulmonology clinic for preop visit today or tomorrow. Medical Records I reviewed the patient's medical records. Lab Data I reviewed the patient's lab results. 04/09/25 10:02 04/09/25 10:02 Radiology Impressions Chest X-Ray 04/09/25 09:23 IMPRESSION: 1. No acute cardiopulmonary finding. 2. Advanced changes of fibrosis and honeycombing and emphysema. Chest CTA 04/09/25 10:33 IMPRESSION: 1. No pulmonary embolism. 2. Secretions with near complete obstruction involving the LEFT mainstem bronchus. 3. Cavitary nodule LEFT upper lobe 1.4 x 1.5 cm is unchanged from the most recent exam but is increasing in size. Differential includes cavitary neoplasm and infection. 4. LEFT hilar mass, biopsy-proven neoplasm. Similar to the most recent study but decreased in size since 12/27/2024. 5. Centrilobular and paraseptal emphysematous changes. 6. Fracture with lytic changes involving the LEFT lateral LEFT sixth rib. Pathological fractures not excluded. Laboratory Results WBC 5.93 10^3/uL (3.29-11.43) 04/09/25 10:02 RBC 3.54 10^6/uL (3.85-5.65) L 04/09/25 10:02 Hgb 11.00 g/dL (11.27-16.99) L 04/09/25 10:02 Hct 33.2 % (37-53) L 04/09/25 10:02 MCV 93.8 fl (82-101) 04/09/25 10:02 MCH 31.1 pg (27-33) 04/09/25 10:02 MCHC 33.1 g/dL (30-55) 04/09/25 10:02 RDW 16.0 % (12.1-15.1) H 04/09/25 10:02 Plt Count 180 10^3/cmm (157-399) 04/09/25 10:02 MPV 9.0 fL (7.4-10.4) 04/09/25 10:02 Neut % (Auto) 75.0 % 04/09/25 10:02 Lymph % (Auto) 12.6 % 04/09/25 10:02 Traill % (Auto) 9.6 % 04/09/25 10:02 Eos % (Auto) 1.5 % 04/09/25 10:02 Baso % (Auto) 1.0 % 04/09/25 10:02 Neut # (Auto) 4.44 10^3/uL (1.8-7.7) 04/09/25 10:02 Lymph # (Auto) 0.8 10^3/uL (0.8-4.8) 04/09/25 10:02 Traill # (Auto) 0.6 10^3/uL (0.2-0.9) 04/09/25 10:02 Eos # (Auto) 0.1 10^3/uL (0.0-0.8) 04/09/25 10:02 Baso # (Auto) 0.1 10^3/uL (0.0-0.1) 04/09/25 10:02 Nucleated RBC % (auto) 0 % 04/09/25 10:02 Nucleated RBCs # 0.0 /100WBC 04/09/25 10:02 Sodium 135 mmol/L (136-145) L 04/09/25 10:02 Potassium 4.3 mmol/L (3.5-5.1) 04/09/25 10:02 Chloride 95 mmol/L (98-107) L 04/09/25 10:02 Carbon Dioxide 30 mmol/L (22-29) H 04/09/25 10:02 Anion Gap 14.3 (5-19) 04/09/25 10:02 BUN 15 mg/dL (8-23) 04/09/25 10:02 Creatinine 1.0 mg/dL (0.7-1.2) 04/09/25 10:02 GFR Calculation 74.8 mL/min (90-130) L 04/09/25 10:02 Glucose 85 mg/dL (65-115) 04/09/25 10:02 Calculated Osmolality 280 mOsm/kg (285-295) L 04/09/25 10:02 Calcium 9.2 mg/dL (8.5-10.5) 04/09/25 10:02 Total Bilirubin 0.4 mg/dL (0.15-1.2) 04/09/25 10:02 AST 120 U/L (0-40) H 04/09/25 10:02 ALT 63 U/L (0-41) H 04/09/25 10:02 Alkaline Phosphatase 60 U/L (40-130) 04/09/25 10:02 Total Protein 7.2 g/dL (6.6-8.7) 04/09/25 10:02 Albumin 3.9 g/dL (3.5-5.2) 04/09/25 10:02 Globulin 3.3 g/dL (1.3-4.6) 04/09/25 10:02 Influenza A (PCR) Negative (Negative) 04/09/25 10:04 Influenza Type B (PCR) Negative (Negative) 04/09/25 10:04 RSV (PCR) Negative (Negative) 04/09/25 10:04 SARS-CoV-2 (PCR) Negative (Negative) 04/09/25 10:04 All radiology interpretation(s) finalized by discharge EKG Data EKG 1: I personally reviewed and interpreted this EKG as follows: Prior EKG tracings: available for review Interpretation: EKG 04/09/2025 9:30 AM sinus bradycardia rate of 52 HI interval 176 QTc 398. No acute ST changes noted. Compared to EKG 03/28/2025 no significant changes. Computer generated interpretation: Chest X-Ray 04/09/25 09:23 IMPRESSION: 1. No acute cardiopulmonary finding. 2. Advanced changes of fibrosis and honeycombing and emphysema. Chest CTA 04/09/25 10:33 IMPRESSION: 1. No pulmonary embolism. 2. Secretions with near complete obstruction involving the LEFT mainstem bronchus. 3. Cavitary nodule LEFT upper lobe 1.4 x 1.5 cm is unchanged from the most recent exam but is increasing in size. Differential includes cavitary neoplasm and infection. 4. LEFT hilar mass, biopsy-proven neoplasm. Similar to the most recent study but decreased in size since 12/27/2024. 5. Centrilobular and paraseptal emphysematous changes. 6. Fracture with lytic changes involving the LEFT lateral LEFT sixth rib. Pathological fractures not excluded. Discharge Plan Discharge Patient Disposition: Home Clinical Impression: Acute exacerbation of chronic obstructive pulmonary disease, Mucus plugging of bronchi Lung cancer Qualifiers: Laterality: left Lung location: lower lobe of lung Qualified Code(s): C34.32 - Malignant neoplasm of lower lobe, left bronchus or lung Anemia Qualifiers: Anemia type: unspecified type Qualified Code(s): D64.9 - Anemia, unspecified Condition: Stable Prescriptions: New guaifenesin [Mucinex] 600 mg tablet extended release 12hr 600 mg PO BID Qty: 20 0RF doxycycline hyclate 100 mg capsule 100 mg PO BID 10 Days Qty: 20 0RF albuterol sulfate 90 mcg/actuation HFA aerosol inhaler 2 inh INHALATION Q4H PRN (Reason: shortness of breath or wheezing) Qty: 18 0RF No Action prochlorperazine maleate [Compazine] 10 mg tablet 10 mg PO Q4H PRN (Reason: mild nausea) Qty: 30 3RF nicotine 21 mg/24 hr patch 24 hour 1 patch transdermal DAILY Qty: 28 1RF sennosides-docusate sodium [Stimulant Laxative Plus] 8.6-50 mg tablet 1 tab PO PRN PRN (Reason: Constipation) lidocaine-prilocaine 2.5-2.5 % cream 1 applic topical .COMPLEX Qty: 30 2RF Rx Instructions: Apply quarter-size amount to port site 30 minutes prior to access; cover with cling wrap triamcinolone acetonide 0.1 % cream 1 applic topical TID PRN (Reason: itching) Qty: 15 0RF (DME) electric [facility] bed See Rx Instructions .Route .MEDSUPPLY Qty: 1 0RF Rx Instructions: As directed lactulose 10 gram/15 mL solution 10 g PO Q8H PRN (Reason: constipation) Qty: 600 6RF oxycodone 30 mg tablet 30 mg PO Q4H PRN (Reason: pain) 30 Days Qty: 120 0RF Xtampza ER 13.5 mg cap,sprinkl,ER12hr(DONT CRUSH) 13.5 mg PO Q12H 30 Days Qty: 60 0RF Rx Instructions: must administer with a meal/food albuterol sulfate [Ventolin HFA] 90 mcg/actuation HFA aerosol inhaler 2 inh inhalation QID PRN (Reason: shortness of breath or wheezing) Qty: 8.5 11RF polyethylene glycol 3350 [Miralax] 17 gram/dose powder 17 g PO DAILY PRN (Reason: constipation) Eliquis DVT-PE Treat 30D Start 5 mg (74 tabs) tablets,dose pack See Rx Instructions .ROUTE .COMPLEX Qty: 74 0RF Rx Instructions: Take 10mg by mouth twice daily for 7 days then 5mg twice daily. diltiazem HCl [Cardizem LA] 120 mg tablet extended release 24 hr 120 mg PO DAILY PRN (Reason: tachycardia) Qty: 30 0RF Rx Instructions: Tachycardia HR >100 at rest Spiriva Respimat 2.5 mcg/actuation mist 1 puff INHALATION QAM Discharge Orders: Discharge ED (Routine); Ordered 04/09/25 Ordered By: Leland Luke Discharge Diet: Usual diet Discharge Activity: Increase activity as tolerated Patient Instructions: Opioid Safety, Pain Management, Patient Portal & Leoncio Instructions Activity Restrictions/Additional Instructions: [facility]. It is very important that you follow up as instructed or that you return to the Emergency Department should you have concerns or if your condition changes or worsens in any way. Emergency department visits are focused on emergent conditions, in some cases you may require further evaluation on an outpatient basis. You were seen in the emergency room with complaints of shortness of breath and rib pain. Rib pain is likely from the recent fracture. CT did not show any blood clots does show your lung cancer. There is some mucous plugging in the left main bronchus. We discussed with the on-call natural resources professor she reviewed the CT as well. Recommended starting Mucinex 1 twice a day also doxycycline twice a day continue to use albuterol regularly she will see you in our office and set up for bronchoscopy to wash out the mucous plugging. (Please note that included in your discharge packet is information concerning opioid safety and pain management. This information is given to all patients were discharged from the ER regardless of their discharge diagnosis or the medicines they usually take or are prescribed.) Print Language: Georgian Coding Level of Care Code ED Hammer Setter for Afua Moncada
--- OUTSIDE RECORDS SUMMARY | 2025-04-09 09:35 | XMS_ITS | Clinical Summary ---
Author Organization [facility] Address [address] [place] [address] Phone Care Team Providers Care Concrete Pouring Supervisor Name Role Phone Unavailable Primary Care Provider [...] series) 2033 Medical Devices Implanted Type Area Practice Billing Associate Device Identifier Shelf Expiration Date Model / Serial / Lot Log [id number] - Mesh Bard Inguinal Hernia - 1 - Graft Dermal Flex Hd [id number] Ultra Thick Implanted:Qty : 1 on 12/20/2009 Graft N/A: Abdomen MUSCULOSKELETAL TRANSPLANT FOU 07/01/2012 [id number] / N/A Additional Health Concerns Infection Onset Date Last Indicated MRSA Comment:Nares 12/19/09; Abdomen 08/13/09 08/15/2009 08/15/2009
[2025-04-09 10:08] LABS: Hematocrit 33.2 % (37-53); Hemoglobin 11.00 g/dL (11.27-16.99); Mean Corpuscular HGB Conc 33.1 g/dL (30-55); Mean Corpuscular Hemoglobin 31.1 pg (27-33); Mean Corpuscular Volume 93.8 fl (82-101); Nucleated Red Blood Cells % 0 %; Platelet Count 180 10^3/cmm (157-399); Red Blood Count 3.54 10^6/uL (3.85-5.65); White Blood Count 5.93 10^3/uL (3.29-11.43)
[2025-04-09] MEDS: morphine 4 mg/mL SDV 1 mL IVP (10:10)
[2025-04-09 10:29] LABS: Alanine Aminotransferase 63 U/L (0-41); Albumin Level 3.9 g/dL (3.5-5.2); Alkaline Phosphatase 60 U/L (40-130); Anion Gap 14.3 (5-19); Aspartate Amino Transferase 120 U/L (0-40); Blood Urea Nitrogen 15 mg/dL (8-23); Calcium 9.2 mg/dL (8.5-10.5); Carbon Dioxide 30 mmol/L (22-29); Chloride 95 mmol/L (98-107); Creatinine Clr Calc Pharmacy 69.5526; Globulin 3.3 g/dL (1.3-4.6); Glucose 85 mg/dL (65-115); Osmolality Calculated 280 mOsm/kg (285-295); Potassium 4.3 mmol/L (3.5-5.1); Sodium 135 mmol/L (136-145); Total Protein 7.2 g/dL (6.6-8.7)
--- NOTE | 2025-04-09 10:32 | PC.PHAR ---
Norma states pt is always there on time for his pain medications but not very good at anything else. Last fill dates and day supply entered in pharmacy notes.
--- NOTE | 2025-04-09 10:33 | CT_ITS ---
WS: [id number] CT CHEST ANGIOGRAPHY WITH REFORMATS HISTORY: History PE stopped anticoagulants, history of lung cancer. TECHNIQUE: Contiguous axial images are obtained through the chest during arterial injection of intravenous contrast. Images are reconstructed to evaluate the pulmonary arteries. MIP imaging also reviewed. All CT scans at [facility] use at least one of these dose optimization techniques: automated exposure control; mA and/or kV adjustment per patient size (includes targeted exams where dose is matched to clinical indication); or iterative reconstruction. CONTRAST: Omnipaque 350; 100 mL IV. DLP: 371.25 mGy.cm COMPARISON: 03/28/2025 Adequate opacification of the pulmonary arteries. No filling defects or embolism. No acute pulmonary embolism identified. Moderate atherosclerosis aorta. No dissection or aneurysm. Normal size heart. Hyperinflated lungs with centrilobular and paraseptal emphysema. Reidentified is the cavitary lesion in the LEFT upper lobe measuring 1.4 x 1.5 cm which is unchanged. New reticular nodular opacifications bilaterally. No dense consolidations. Mild atelectasis at the lung bases. Significant increase secretions beginning in the LEFT mainstem bronchus with near complete occlusion. There is fullness at the hilar regions bilaterally from prominent lymph nodes. LEFT hilar lymphadenopathy persists but improved since 12/27/2024. Bilateral thickening of each adrenal gland. Phase of contrast opacification is suboptimal for evaluation of the liver. Mild anterior wedging of one of the upper thoracic vertebral bodies is stable. Lytic area with fracture involving the LEFT lateral sixth rib lytic changes in the rib. This may be a pathologic fracture. CT/CT angio chest PE protcl [id number] IMPRESSION: 1. No pulmonary embolism. 2. Secretions with near complete obstruction involving the LEFT mainstem bronc hus. 3. Cavitary nodule LEFT upper lobe 1.4 x 1.5 cm is unchanged from the most rec ent exam but is increasing in size. Differential includes cavitary neoplasm and infection. 4. LEFT hilar mass, biopsy-proven neoplasm. Similar to the most recent study b ut decreased in size since 12/27/2024. 5. Centrilobular and paraseptal emphysematous changes. 6. Fracture with lytic changes involving the LEFT lateral LEFT sixth rib. Path ological fractures not excluded.
[2025-04-09] MEDS: LORazepam 2 mg/mL INJ 1 mL 1 MG IVP (10:41)
[2025-04-09 10:52] LABS: Respiratory Syncytial Virus Ce NEGATIVE (Negative); SARS-CoV-2 PCR NEGATIVE (Negative)
[2025-04-09] MEDS: iohexol 350 mg/mL 500 mL Btl (per mL) IV (11:12)
== END 2025-04-09 16:09 | disposition home or self-care (01) ==
PROVIDERS: Emergency Provider Family Medicine
DX: J44.1 Chronic obstructive pulmonary disease with (acute) exacerbation (principal); J98.09 Other diseases of bronchus, not elsewhere classified; C34.32 Malignant neoplasm of lower lobe, left bronchus or lung; D64.9 Anemia, unspecified; Z79.01 Long term (current) use of anticoagulants; Z11.52 Encounter for screening for COVID-19; Z87.891 Personal history of nicotine dependence; Z99.81 Dependence on supplemental oxygen
CPT/HCPCS: 36591; 71045; 71275; 80053; 85025; 87637; 93005; 94640; 96361; 96374; 96375; 99285; J2060; J2270; J7030; J9999

== ENCOUNTER 2025-04-10 02:29 | Emergency (ER) | payer MEDICAID, SELFPAY ==
[2025-04-10 02:30] VITALS: BP 139/88; PULSE 65; RESP 22; TEMP 36.6; O2SAT 86; BMI 26.1
--- NOTE | 2025-04-10 02:33 | ECG_ITS ---
[facility] Test Date: 2025-04-10 Pat Name: Fran Davidson Department: Room: Gender: Male Spreading Machine Operator: : 1960 Requested By: Kris Barraza Order Number: [id number] Tran MD: Sebastian Roman M.D. Measurements Intervals [place] Rate: 58 P: 44 [place]: 175 QRS: 49 QRSD: 101 T: 67 QT: 402 QTc: 395 Interpretive Statements SINUS BRADYCARDIA NONSPECIFIC T-WAVE ABNORMALITY Compared to ECG 04/09/2025 09:35:14 No significant changes Electronically Signed On 04-11-2025 20:35:39 BIODIESEL PROCESS CONTROL TECHNICIAN by Sebastian Roman M.D. [id number]
--- OUTSIDE RECORDS SUMMARY | 2025-04-10 02:35 | XMS_ITS | Clinical Summary ---
Author Organization [facility] Address [address] [place] [address] Phone Care Team Providers Care Shorts Sifter Name Role Phone Unavailable Primary Care Provider [...] series) 2033 Medical Devices Implanted Type Area Relocation Commissioner Device Identifier Shelf Expiration Date Model / Serial / Lot Log [id number] - Mesh Bard Inguinal Hernia - 1 - Graft Dermal Flex Hd [id number] Ultra Thick Implanted:Qty : 1 on 12/20/2009 Graft N/A: Abdomen MUSCULOSKELETAL TRANSPLANT FOU 07/01/2012 [id number] / [id number] / N/A Additional Health Concerns Infection Onset Date Last Indicated MRSA Comment:Nares 12/19/09; Abdomen 08/13/09 08/15/2009 08/15/2009
--- NOTE | 2025-04-10 02:39 | XRR_ITS ---
PROCEDURE INFORMATION: Exam: XR Chest Exam date and time: 04/10/2025 2:47 AM Age: 64 years old Clinical indication: Shortness of breath; Additional info: SOB TECHNIQUE: Imaging protocol: Radiologic exam of the chest. Views: 1 view. COMPARISON: CT angio chest PE protcl [id number] 04/09/2025 10:58 AM FINDINGS: Tubes, catheters and devices: Right Port-A-Cath terminates in the SVC. Lungs: Mild consolidation in the left upper lobe, concerning for mild pneumonia. See chest CT from yesterday. Pleural spaces: Unremarkable. No pleural effusion. No pneumothorax. Heart/Mediastinum: Mild cardiomegaly. Bones/joints: Unremarkable. XR/XR chest 1V portable [id number] IMPRESSION: Mild consolidation in the left upper lobe, concerning for mild pneumonia. See chest CT from yesterday.
[2025-04-10 02:52] LABS: Hematocrit 35.2 % (37-53); Hemoglobin 11.60 g/dL (11.27-16.99); Mean Corpuscular HGB Conc 33.0 g/dL (30-55); Mean Corpuscular Hemoglobin 31.1 pg (27-33); Mean Corpuscular Volume 94.4 fl (82-101); Nucleated Red Blood Cells % 0 %; Platelet Count 199 10^3/cmm (157-399); Red Blood Count 3.73 10^6/uL (3.85-5.65); White Blood Count 6.74 10^3/uL (3.29-11.43)
[2025-04-10 02:55] VITALS: PULSE 60; RESP 18; O2SAT 97
--- NOTE | 2025-04-10 03:06 | ED_ITS ---
HPI - Chest Pain 2 General: Chief Complaint: Chest Pain Stated Complaint: chest pain and sob Time Seen by Provider: 04/10/25 02:30 Source: patient Mode of arrival: ambulatory Limitations: no limitations History of Present Illness: 64-year-old male has a history of COPD a long with lung cancer is on 3 L of oxygen chronically. Patient had a fall weeks ago has been having left-sided rib pain since then. He states that tonight he had increasing shortness of breath along with pain and has had a cough. He denies any fevers EMS states it had to place him on 4 L of oxygen. Associated symptoms: Reports dyspnea Related Data Home Medications ?Medication ?Instructions ?Recorded ?Confirmed sennosides 8.6 mg-docusate sodium 1 tab PO PRN PRN Con stipation 07/20/24 04/09/25 50 mg tablet (Stimulant Laxative Plus) polyethylene glycol 3350 17 17 g PO DAILY PRN constipa tion 12/27/24 04/09/25 gram/dose oral powder (Miralax) tiotropium bromide 2.5 1 puff inhalation QAM 04/09/25 mcg/actuation mist for inhalation (Spiriva Respimat) Previous Rx's ?Medication ?Instructions ?Recorded prochlorperazine maleate 10 mg 10 mg PO Q4H PRN mild n ausea #30 10/04/24 tablet (Compazine) tabs lidocaine-prilocaine 2.5 %-2.5 % 1 applic topical .Fire[employer] PLEX #30 grams 11/09/24 topical cream nicotine 21 mg/24 hr daily 1 patch transdermal DAILY t ob 11/15/24 transdermal patch dependence #28 ea triamcinolone acetonide 0.1 % 1 applic topical TID PRN itching 11/28/24 topical cream #15 grams apixaban 5 mg (74 tabs) tablets in See Rx Instructions PO .COMPLEX 12/28/24 a dose pack (Eliquis DVT-PE Treat #74 ea 30D Start) diltiazem HCl 120 mg 120 mg PO DAILY PRN tachycar darren 12/28/24 tablet,extended release 24 hr #30 tabs (Cardizem LA) [facility] bed #1 ea 01/25/25 lactulose 10 gram/15 mL oral 10 g (15 mL) PO Q8H PRN 1 solution constipation #600 mL oxycodone 30 mg tablet 30 mg PO Q4H PRN pain 30 day s #120 03/08/25 tabs oxycodone myristate 13.5 mg 13.5 mg PO Q12H 30 days #6 0 ea 03/08/25 capsule sprinkle extend release 12hr(DON'T CRUSH) (Xtampza ER) albuterol sulfate 90 mcg/actuation 2 inh inhalation QI D PRN shortness 03/14/25 aerosol inhaler (Ventolin HFA) of breath or wheezing # 8.5 grams albuterol sulfate 90 mcg/actuation 2 inh inhalation Q4 H PRN shortness 04/09/25 aerosol inhaler of breath or wheezing #18 gr ams doxycycline hyclate 100 mg capsule 100 mg PO BID 10 da ys #20 caps 04/09/25 guaifenesin 600 mg tablet, 600 mg PO BID #20 tabs 03/31 extended release 12 hr (Mucinex) Allergies Allergy/AdvReac Type Severity Reaction Status Date / Time No Known Allergies Allergy Verified 03/28/25 01:33 Review of Systems 2 Card: Reports: chest pain Resp: Reports: dyspnea and productive cough PFSH ED 2 PFSH: Medical History Abnormal CT lung screening Lung nodule seen on imaging study Smoker unmotivated to quit Started age 13 1/1 to 1 ppd PUD (peptic ulcer disease) COPD (chronic obstructive pulmonary disease) Surgical History H/O hernia repair Ventral Social History Smoking and tobacco/nicotine status: former use of tobacco/nicotine Alcohol intake: never Substance/Drug Use: current Substance/Drug use frequency: few times a week Physical Exam 2 Const: COMMON NORMALS: patient oriented x3 GENERAL APPEARANCE: ill appearing HENMT: COMMON NORMALS: normocephalic and atraumatic HEAD & SCALP: n ormocephalic and atraumatic Eye: COMMON NORMALS: conjunctivae normal CONJUNCTIVA: Yes conjunctivae normal Neck/C-Spine: COMMON NORMALS: full ROM and supple Chest: COMMONS NORMALS: normal inspection of the chest Resp: COMMON NORMALS: No retractions and No use of accessory muscles A USCULTATION: rales and wheezes Cardio: COMMON NORMALS: regular rate, regular rhythm and No murmurs present (Cardio) RATE: regular rate RHYTHM: regular rhythm GI: COMMON NORMALS: Normal to inspection, nondistended, normoactive bowel sounds present, Soft to palpation, non-tender and no masses PALPATION: Yes Soft to palpation Extremity: COMMON NORMALS: normal to inspection and full ROM Neuro: COMMON NORMALS: patient oriented x3, moves all extremities and no focal motor deficits Psych: COMMON NORMALS: mental status grossly normal, Normal thought process present and cooperative THOUGHT PROCESS: Normal thought process present Skin: COMMON NORMALS: no rashes or lesions noted and no wounds GENERAL SKIN EXAM: no rashes or lesions noted Course 2 Vital Signs: Vital signs: Vital Signs Temperature 97.9 F 04/10/25 02:30 Pulse Rate 62 04/10/25 04:00 Respiratory Rate 18 04/10/25 02:55 Blood Pressure 139/88 04/10/25 02:30 Pulse Oximetry 92 04/10/25 04:00 Oxygen Delivery Me thod Nasal Cannula 04/10/25 04:00 Oxygen Flow Rate 2 04/10/25 04:00 MDM - Chest Pain Medical Decision Making Patient presents for shortness of breath along with left chest wall pain that he has been having since a fall weeks ago. Patient having no cardiac symptoms here. Differential does include pulmonary embolism, pneumonia, pneumothorax, ACS. Did not check troponin as he is having no signs of cardiac pain he is very point tender on a exam and his main complaint is been shortness of breath and pain where it hit his rib before. He had had a CT done yesterday that showed no signs of pulmonary emboli. Did do a chest x-ray here that does show a consolidation left upper lobe likely a pneumonia. Did review the film myself. Lab work showed no significant abnormalities including a normal white count. Patient's on 2 L of oxygen here which is at his baseline. EKG as interpreted by me time 237 sinus bradycardia heart rate [address] elevation QRS 101 QTc 392. I did offer patient admission for his pneumonia he does want to be admitted and states that he wants to do antibiotics at home he has pulmonology follow-up scheduled this week. I did go over all his results including labs and x-ray. Did give him dose antibiotics here he was prescribed doxycycline he is to take that and for if he has any worsening shortness of breath he is to return he understands agrees to plan. Lab Data 04/10/25 02:47 04/10/25 02:47 Radiology Impressions Chest X-Ray 04/10/25 02:39 IMPRESSION: Mild consolidation in the left upper lobe, concerning for mild pneumonia. See chest CT from yesterday. Laboratory Results WBC 6.74 10^3/uL (3.29-11.43) 04/10/25 02:47 RBC 3.73 10^6/uL (3.85-5.65) L 04/10/25 02:47 Hgb 11.60 g/dL (11.27-16.99) 04/10/25 02:47 Hct 35.2 % (37-53) L 04/10/25 02:47 MCV 94.4 fl (82-101) 04/10/25 02:47 MCH 31.1 pg (27-33) 04/10/25 02:47 MCHC 33.0 g/dL (30-55) 04/10/25 02:47 RDW 15.9 % (12.1-15.1) H 04/10/25 02:47 Plt Count 199 10^3/cmm (157-399) 04/10/25 02:47 MPV 8.5 fL (7.4-10.4) 04/10/25 02:47 Neut % (Auto) 78.2 % 04/10/25 02:47 Lymph % (Auto) 10.5 % 04/10/25 02:47 [place] % (Auto) 8.3 % 04/10/25 02:47 Eos % (Auto) 1.8 % 04/10/25 02:47 Baso % (Auto) 0.9 % 04/10/25 02:47 Neut # (Auto) 5.27 10^3/uL (1.8-7.7) 04/10/25 02:47 Lymph # (Auto) 0.7 10^3/uL (0.8-4.8) L 04/10/25 02:47 [place] # (Auto) 0.6 10^3/uL (0.2-0.9) 04/10/25 02:47 Eos # (Auto) 0.1 10^3/uL (0.0-0.8) 04/10/25 02:47 Baso # (Auto) 0.1 10^3/uL (0.0-0.1) 04/10/25 02:47 Nucleated RBC % (auto) 0 % 04/10/25 02:47 Nucleated RBCs # 0.0 /100WBC 04/10/25 02:47 PT 13.00 SECONDS (12.1-14.9) 04/10/25 02:47 INR 0.91 (0.8-1.2) 04/10/25 02:47 Sodium 135 mmol/L (136-145) L 04/10/25 02:47 Potassium 4.1 mmol/L (3.5-5.1) 04/10/25 02:47 Chloride 95 mmol/L (98-107) L 04/10/25 02:47 Carbon Dioxide 31 mmol/L (22-29) H 04/10/25 02:47 Anion Gap 13.1 (5-19) 04/10/25 02:47 BUN 15 mg/dL (8-23) 04/10/25 02:47 Creatinine 1.0 mg/dL (0.7-1.2) 04/10/25 02:47 GFR Calculation 74.8 mL/min (90-130) L 04/10/25 02:47 Glucose 110 mg/dL (65-115) 04/10/25 02:47 Calculated Osmolality 281 mOsm/kg (285-295) L 04/10/25 02:47 Calcium 9.1 mg/dL (8.5-10.5) 04/10/25 02:47 Total Bilirubin 0.3 mg/dL (0.15-1.2) 04/10/25 02:47 AST 114 U/L (0-40) H 04/10/25 02:47 ALT 64 U/L (0-41) H 04/10/25 02:47 Alkaline Phosphatase 68 U/L (40-130) 04/10/25 02:47 NT-Pro-B Natriuret Pep 214 pg/mL (0-125) H 04/10/25 02:47 Total Protein 7.1 g/dL (6.6-8.7) 04/10/25 02:47 Albumin 3.8 g/dL (3.5-5.2) 04/10/25 02:47 Globulin 3.3 g/dL (1.3-4.6) 04/10/25 02:47 All radiology interpretation(s) finalized by discharge Discharge Plan Discharge Patient Disposition: Home Clinical Impression: Pneumonia Qualifiers: Pneumonia type: due to unspecified organism Laterality: left Condition: Stable Prescriptions: No Action prochlorperazine maleate [Compazine] 10 mg tablet 10 mg PO Q4H PRN (Reason: mild nausea) Qty: 30 3RF nicotine 21 mg/24 hr patch 24 hour 1 patch transdermal DAILY Qty: 28 1RF sennosides-docusate sodium [Stimulant Laxative Plus] 8.6-50 mg tablet 1 tab PO PRN PRN (Reason: Constipation) lidocaine-prilocaine 2.5-2.5 % cream 1 applic topical .COMPLEX Qty: 30 2RF Rx Instructions: Apply quarter-size amount to port site 30 minutes prior to access; cover with cling wrap triamcinolone acetonide 0.1 % cream 1 applic topical TID PRN (Reason: itching) Qty: 15 0RF (DME) electric hospital bed See Rx Instructions .Route .MEDSUPPLY Qty: 1 0RF Rx Instructions: As directed lactulose 10 gram/15 mL solution 10 g PO Q8H PRN (Reason: constipation) Qty: 600 6RF oxycodone 30 mg tablet 30 mg PO Q4H PRN (Reason: pain) 30 Days Qty: 120 0RF Xtampza ER 13.5 mg cap,sprinkl,ER12hr(DONT CRUSH) 13.5 mg PO Q12H 30 Days Qty: 60 0RF Rx Instructions: must administer with a meal/food albuterol sulfate [Ventolin HFA] 90 mcg/actuation HFA aerosol inhaler 2 inh inhalation QID PRN (Reason: shortness of breath or wheezing) Qty: 8.5 11RF polyethylene glycol 3350 [Miralax] 17 gram/dose powder 17 g PO DAILY PRN (Reason: constipation) Eliquis DVT-PE Treat 30D Start 5 mg (74 tabs) tablets,dose pack See Rx Instructions .ROUTE .COMPLEX Qty: 74 0RF Rx Instructions: Take 10mg by mouth twice daily for 7 days then 5mg twice daily. diltiazem HCl [Cardizem LA] 120 mg tablet extended release 24 hr 120 mg PO DAILY PRN (Reason: tachycardia) Qty: 30 0RF Rx Instructions: Tachycardia HR >100 at rest Spiriva Respimat 2.5 mcg/actuation mist 1 puff INHALATION QAM guaifenesin [Mucinex] 600 mg tablet extended release 12hr 600 mg PO BID Qty: 20 0RF doxycycline hyclate 100 mg capsule 100 mg PO BID 10 Days Qty: 20 0RF albuterol sulfate 90 mcg/actuation HFA aerosol inhaler 2 inh INHALATION Q4H PRN (Reason: shortness of breath or wheezing) Qty: 18 0RF Discharge Orders: Discharge ED (Routine); Ordered 04/10/25 Ordered By: Kris Barraza Discharge Diet: Advance as tolerated Discharge Activity: Resume usual activity Patient Instructions: Pneumonia (ED) Print Language: Kiswahili Coding Level of Care Code ED Recruiting Intern for Chg Fwd Heart Score HEART Score Components History: Slightly Suspicous EKG: Normal Age: Less than 45 yrs Risk Factors: No Risk Factors Known Risk Factor Details: No troponin was drawn here is patient has no signs of cardiac cause for his pain Troponin: Baseline Trop <16 ng/L HEART Score RESULT HEART Score: 0
[2025-04-10 03:11] LABS: INR 0.91 (0.8-1.2); Prothrombin Time 13.00 SECONDS (12.1-14.9)
[2025-04-10 03:31] LABS: Alanine Aminotransferase 64 U/L (0-41); Albumin Level 3.8 g/dL (3.5-5.2); Alkaline Phosphatase 68 U/L (40-130); Anion Gap 13.1 (5-19); Aspartate Amino Transferase 114 U/L (0-40); Blood Urea Nitrogen 15 mg/dL (8-23); Calcium 9.1 mg/dL (8.5-10.5); Carbon Dioxide 31 mmol/L (22-29); Chloride 95 mmol/L (98-107); Creatinine Clr Calc Pharmacy 69.5526; Globulin 3.3 g/dL (1.3-4.6); Glucose 110 mg/dL (65-115); NT Pro B Type Natriuretic Pept 214 pg/mL (0-125); Osmolality Calculated 281 mOsm/kg (285-295); Potassium 4.1 mmol/L (3.5-5.1); Sodium 135 mmol/L (136-145); Total Protein 7.1 g/dL (6.6-8.7)
[2025-04-10 04:00] VITALS: PULSE 62; O2SAT 92
[2025-04-10] MEDS: cefTRIAXone 1,000 mg SDV 1000 MG IVP (04:06)
== END 2025-04-10 05:34 | disposition home or self-care (01) ==
PROVIDERS: Emergency Provider Emergency Medicine
DX: J18.9 Pneumonia, unspecified organism (principal); Z79.01 Long term (current) use of anticoagulants; Z87.891 Personal history of nicotine dependence; J44.9 Chronic obstructive pulmonary disease, unspecified; Z85.118 Personal history of other malignant neoplasm of bronchus and lung; Z99.81 Dependence on supplemental oxygen
CPT/HCPCS: 36415; 71045; 80053; 83880; 85025; 85610; 87040; 93005; 94640; 96365; 96375; 99285; J0456; J0696; J7050; J9999

== ENCOUNTER 2025-04-24 21:27 | Emergency (ER) | payer MEDICAID, SELFPAY ==
[2025-04-24 21:28] VITALS: BP 116/78; PULSE 55; RESP 20; TEMP 36.8; O2SAT 92; BMI 29.2
--- NOTE | 2025-04-24 21:29 | XRR_ITS ---
PROCEDURE INFORMATION: Exam: XR Chest Exam date and time: 04/24/2025 9:32 PM Age: 64 years old Clinical indication: Dyspnea and shortness of breath; Prior surgery; Surgery date: 6+ months; Surgery type: Port; H/o lung CA; Additional info: Dyspnea/cough TECHNIQUE: Imaging protocol: Radiologic exam of the chest. Views: 1 view. COMPARISON: CR (CHEST, ) 04/10/2025 2:47 AM FINDINGS: Tubes, catheters and devices: Right-sided central venous catheter. Lungs: Near-complete opacification of the left hemithorax. The right lung is relatively clear. Pleural spaces: No sizable pneumothorax. Heart/Mediastinum: There is mediastinal shift to the left. Obscuration of the cardiomediastinal silhouette. Bones/joints: Unremarkable. XR/XR chest 1V portable [id number] IMPRESSION: Near-complete opacification of the left hemithorax with mediastinal shift to the left likely represents atelectasis due to an obstructing area in the left mainstem bronchus.
--- OUTSIDE RECORDS SUMMARY | 2025-04-24 21:32 | XMS_ITS | Clinical Summary ---
Author Organization [facility] Address [address] [place] [address] Phone Care Team Providers Care Development Educator Name Role Phone Unavailable Primary Care Provider [...] series) 2033 Medical Devices Implanted Type Area Preparation Plant Repairer Device Identifier Shelf Expiration Date Model / Serial / Lot Log [id number] - Mesh Bard Inguinal Hernia - 1 - Graft Dermal Flex Hd [id number] Ultra Thick Implanted:Qty : 1 on 12/20/2009 Graft N/A: Abdomen MUSCULOSKELETAL TRANSPLANT FOU 07/01/2012 [id number] / [id number] / N/A Additional Health Concerns Infection Onset Date Last Indicated MRSA Comment:Nares 12/19/09; Abdomen 08/13/09 08/15/2009 08/15/2009
[2025-04-24 21:35] VITALS: BP 116/78; PULSE 53; O2SAT 92
--- NOTE | 2025-04-24 21:50 | ECG_ITS ---
[facility]25[facility]24 Pat Name: Fran Davidson Department: Room: Gender: Male Rehabilitation Services Coordinator: : 1960 Requested By: Leladn Crouch Order Number: [id number] Tran MD: Branden Emery M.D. Measurements Intervals [place] Rate: 46 P: 44 FL: 184 QRS: 71 QRSD: 103 T: 94 QT: 442 QTc: 388 Interpretive Statements SINUS BRADYCARDIA ANTEROSEPTAL MYOCARDIAL INFARCTION , OF INDETERMINATE AGE [40+ ms Q WAVE IN V1-V4] Compared to ECG 04/10/2025 02:37:49 Myocardial infarct finding now present T-wave abnormality no longer present Electronically Signed On 04-26-2025 17:44:19 REWORK MACHINE OPERATOR by Branden Emery M.D. [email or web address]
[2025-04-24 22:05] VITALS: BP 119/69; PULSE 48; O2SAT 97
--- NOTE | 2025-04-24 22:12 | CTR_ITS ---
PROCEDURE INFORMATION: Exam: CTA Chest With Contrast Exam date and time: 04/24/2025 11:05 PM Age: 64 years old Clinical indication: Condition or disease; Other: Cancer; Shortness of breath; Prior surgery; Surgery date: 1-6 months; Surgery type: Port placement; Additional info: Lung cancer, shortness of breath, opacification left lung TECHNIQUE: Imaging protocol: Computed tomographic angiography of the chest with contrast. Exam focused on the arteries. 3D rendering (Not supervised by radiologist): MIP and/or 3D reconstructed images were created by the technologist. Radiation optimization: All CT scans at this facility use at least one of these dose optimization techniques: automated exposure control; mA and/or kV adjustment per patient size (includes targeted exams where dose is matched to clinical indication); or iterative reconstruction. Contrast material: OMNI 350; Contrast volume: 100 ml; Contrast route: INTRAVENOUS (IV); COMPARISON: CT angio chest PE protcl [id number] 04/09/2025 10:58 AM RADIATION DOSE METRICS: Total DLP (mGy-cm): 490.33 FINDINGS: Pulmonary arteries: No pulmonary embolism. Aorta: Atherosclerotic changes of the aorta. Lungs: Near complete consolidation in the left lung, likely from the extensive multilobar pneumonia. Volume loss of the left lung with cardiomediastinal shift to the left. Moderate left parapneumonic effusion. Moderate centrilobular emphysema, preferentially involving the lung apices. Pleural spaces: See Lungs finding. Heart: Unremarkable. No cardiomegaly. No pericardial effusion. Lymph nodes: Unremarkable. No enlarged lymph nodes. Liver: Indeterminate low-attenuation areas in the right hepatic lobe segment 6, if there is concern for malignancy, recommend MRI correlation. Bones/joints: Degenerative changes of the spine. Soft tissues: Unremarkable. CT/CT angio chest PE protcl [id number] IMPRESSION: 1. No pulmonary embolism. 2. Near complete consolidation in the left lung, likely from the extensive multilobar pneumonia. Volume loss of the left lung with cardiomediastinal shift to the left. Moderate left parapneumonic effusion. 3. Moderate centrilobular emphysema, preferentially involving the lung apices. 4. Indeterminate low-attenuation areas in the right hepatic lobe segment 6, if there is concern for malignancy, recommend MRI correlation. COMMENTS: The presence of pulmonary emphysema on CT is an independent risk factor for lung cancer. In the absence of a history or active diagnosis of lung cancer, it is recommended that this patient with emphysema be evaluated for enrollment in a low dose CT lung cancer screening program.
--- NOTE | 2025-04-24 22:13 | W.ED.SOB ---
HPI - SOB/Dyspnea General: Chief Complaint: Shortness of Breath/Dyspnea Stated Complaint: sob Time Seen by Provider: 04/24/25 21:29 History of Present Illness: HPI Narrative: 64-year-old male presents emergency room with complaints of shortness of breath. Patient has a history of lung cancer with metastasis to the liver. Patient is having increasing difficulty breathing and contacted his oncology team at [facility] and was advised to go to the emergency room. EMS reports that when they arrived at his home he was on 4 to 6 L by nasal cannula satting 96% they decreased him to 2 L he was satting in the 90s. He is requiring 3 L here to maintain sats at 96 to 97%. He denies any hemoptysis. He was seen several weeks ago on exam at that time there was a partially obstructing left mainstem bronchi mass. We have made arrangements for her to follow-up with pulmonology here in the next few days however reviewing chart it does not look like he followed up with them. Patient is still on immune therapy for treatment for his lung cancer through oncology at [facility]. Associated symptoms: Reports chest congestion; Deny abdominal pain, chest pain or fever(s) Related Data Home Medications ?Medication ?Instructions ?Recorded ?Confirmed sennosides 8.6 mg-docusate sodium 1 tab PO PRN PRN Constipation 07/20/24 04/09/25 50 mg tablet (Stimulant Laxative Plus) polyethylene glycol 3350 17 17 g PO DAILY PRN constipation 12/27/24 04/09/25 gram/dose oral powder (Miralax) tiotropium bromide 2.5 1 puff inhalation QAM 04/09/25 04/09/25 mcg/actuation mist for inhalation (Spiriva Respimat) Previous Rx's ?Medication ?Instructions ?Recorded prochlorperazine maleate 10 mg 10 mg PO Q4H PRN mild nausea #30 10/04/24 tablet (Compazine) tabs lidocaine-prilocaine 2.5 %-2.5 % 1 applic topical .COMPLEX #30 grams 11/09/24 topical cream nicotine 21 mg/24 hr daily 1 patch transdermal DAILY tob 11/15/24 transdermal patch dependence #28 ea triamcinolone acetonide 0.1 % 1 applic topical TID PRN itching 11/28/24 topical cream #15 grams apixaban 5 mg (74 tabs) tablets in See Rx Instructions PO .COMPLEX 12/28/24 a dose pack (EliCredii DVT-PE Treat #74 ea 30D Start) diltiazem HCl 120 mg 120 mg PO DAILY PRN tachycardia 12/28/24 tablet,extended release 24 hr #30 tabs (Cardizem LA) [facility] bed #1 ea 01/25/25 lactulose 10 gram/15 mL oral 10 g (15 mL) PO Q8H PRN 03/07/25 solution constipation #600 mL oxycodone 30 mg tablet 30 mg PO Q4H PRN pain 30 days #120 03/08/25 tabs oxycodone myristate 13.5 mg 13.5 mg PO Q12H 30 days #60 ea 03/08/25 capsule sprinkle extend release 12hr(DON'T CRUSH) (Xtampza ER) albuterol sulfate 90 mcg/actuation 2 inh inhalation QID PRN shortness 03/14/25 aerosol inhaler (Ventolin HFA) of breath or wheezing #8.5 grams albuterol sulfate 90 mcg/actuation 2 inh inhalation Q4H PRN shortness 04/09/25 aerosol inhaler of breath or wheezing #18 grams guaifenesin 600 mg tablet, 600 mg PO BID #20 tabs 04/09/25 extended release 12 hr (Mucinex) Allergies Allergy/AdvReac Type Severity Reaction Status Date / Time No Known Allergies Allergy Verified 03/28/25 01:33 Review of Systems Const: Denies: fever(s) or chills Card: Denies: chest pain Resp: Reports: dyspnea, non-productive cough, wheezing and chest congestion GI: Denies: abdominal pain : Denies: dysuria, urinary frequency or urinary urgency Musc: Denies: neck pain or back pain Skin/Breast: Denies: rash PFSH ED PFSH: Medical History Abnormal CT lung screening Lung nodule seen on imaging study Smoker unmotivated to quit Started age 13 1/2 to 1 ppd PUD (peptic ulcer disease) COPD (chronic obstructive pulmonary disease) Surgical History H/O hernia repair Ventral Social History Smoking and tobacco/nicotine status: former use of tobacco/nicotine Alcohol intake: never Substance/Drug Use: current Substance/Drug use frequency: few times a week Physical Exam Const: COMMON NORMALS: no acute distress GENERAL APPEARANCE: cooperative and comfortable ORIENTATION/CONSCIOUSNESS: Yes awake, Yes oriented to person, Yes oriented to place and Yes oriented to time HENMT: COMMON NORMALS: normocephalic, atraumatic and hearing grossly normal bilaterally HEAD & SCALP: normocephalic and atraumatic Resp: COMMON NORMALS: normal respiratory effort, No retractions and No use of accessory muscles AUSCULTATION: rhonchi right lower and diminished lung sounds on the left Cardio: COMMON NORMALS: regular rate, regular rhythm and No murmurs present (Cardio) RATE: regular rate RHYTHM: regular rhythm GI: COMMON NORMALS: Soft to palpation and No hepatosplenomegaly present AUSCULTATION: Yes normoactive bowel sounds PALPATION: Yes Soft to palpation, No Tenderness to palpation present (GI), No Guarding due to palpation present (GI) and Yes No hepatosplenomegaly present Extremity: COMMON NORMALS: normal to inspection, capillary refill normal, no clubbing, cyanosis or edema, no calf tenderness and no pedal edema Neuro: SENSORIUM/ORIENTATION: Yes oriented to person, Yes oriented to place and Yes oriented to time Skin: COMMON NORMALS: no rashes or lesions noted GENERAL SKIN EXAM: no rashes or lesions noted Course Vital Signs: Vital signs: Vital Signs Temperature 98.3 F 04/24/25 21:28 Pulse Rate 47 L 04/25/25 03:46 Respiratory Rate 18 04/25/25 01:54 Blood Pressure 112/80 04/25/25 03:46 Pulse Oximetry 98 04/25/25 03:46 Oxygen Delivery Me thod Nasal Cannula 04/25/25 03:46 Oxygen Flow Rate 2 04/25/25 03:46 MDM - SOB/Dyspnea Medical Decision Making Medical decision making Social determinants: Minimal social support I reviewed the patient's medical record. I reviewed the patient's current home meds Alternate historians: None Differential diagnosis pneumonia versus further complications of lung cancer versus pneumothorax Lab Review: Labs reviewed on the chart no leukocytosis. CO2 at patient's baseline at 31. AST and ALT mildly elevated consistent with previous labs Imaging: Chest x-ray shows opacification of the left lung which is new. CTA shows no PE complete consolidation of the left lung with extensive multilobar pneumonia occlusion of left mainstem bronchi there is also findings of hepatic metastasis. There is volume loss left lung with mediastinal shift to the left moderate parapneumonic effusion Assessment of risk: Level of risk: High Hospitalization considerations: Admission for obstructive postobstructive pneumonia secondary to lung cancer Reexamination: Unchanged from initial exam Assessment and plan: Contacted [facility] oncology on-call. Will transfer patient. We do not have pulmonology on-call he also will need follow-up he may need stenting if he wishes to pursue this. Discussed with on-call physician Dr. Blackburn will accept the patient on transfer we are awaiting room assignment. Medical Records I reviewed the patient's medical records. Lab Data I reviewed the patient's lab results. 04/24/25 22:22 04/24/25 22:22 Labs/Radiology: Radiology Impressions Chest X-Ray 04/24/25 21:29 IMPRESSION: Near-complete opacification of the left hemithorax with mediastinal shift to the left likely represents atelectasis due to an obstructing area in the left mainstem bronchus. Chest CTA 04/24/25 22:12 IMPRESSION: 1. No pulmonary embolism. 2. Near complete consolidation in the left lung, likely from the extensive multilobar pneumonia. Volume loss of the left lung with cardiomediastinal shift to the left. Moderate left parapneumonic effusion. 3. Moderate centrilobular emphysema, preferentially involving the lung apices. 4. Indeterminate low-attenuation areas in the right hepatic lobe segment 6, if there is concern for malignancy, recommend MRI correlation. COMMENTS: The presence of pulmonary emphysema on CT is an independent risk factor for lung cancer. In the absence of a history or active diagnosis of lung cancer, it is recommended that this patient with emphysema be evaluated for enrollment in a low dose CT lung cancer screening program. Laboratory Results WBC 6.26 10^3/uL (3.29-11.43) 04/24/25 22:22 RBC 3.68 10^6/uL (3.85-5.65) L 04/24/25 22:22 Hgb 11.70 g/dL (11.27-16.99) 04/24/25 22:22 Hct 35.7 % (37-53) L 04/24/25 22:22 MCV 97.0 fl (82-101) 04/24/25 22: MCH 31.8 pg (27-33) 04/24/25 22: MCHC 32.8 g/dL (30-55) 04/24/25 22:22 RDW 16.9 % (12.1-15.1) H 04/24/25 22:22 Plt Count 181 10^3/cmm (157-399) 04/24/25 22: MPV 9.2 fL (7.4-10.4) 04/24/25 22: Neut % (Auto) 74.1 % 04/24/25 22: Lymph % (Auto) 14.4 % 04/24/25: Mccracken % (Auto) 7.5 % 04/24/25 22: Eos % (Auto) 3.0 % 04/24/25 22: Baso % (Auto) 0.8 % 04/24/25: Neut # (Auto) 4.64 10^3/uL (1.8-7.7) 04/24/25 22: Lymph # (Auto) 0.9 10^3/uL (0.8-4.8) 04/24/25 22: Mccracken # (Auto) 0.5 10^3/uL (0.2-0.9) 04/24/25 22: Eos # (Auto) 0.2 10^3/uL (0.0-0.8) 04/24/25: Baso # (Auto) 0.1 10^3/uL (0.0-0.1) 04/24/25 22: Nucleated RBC % (auto) 0 % 04/24/25 22: Nucleated RBCs # 0.0 /100WBC 04/24/25 22:22 Sodium 134 mmol/L (136-145) L 04/24/25 22: Potassium 4.1 mmol/L (3.5-5.1) 04/24/25 22: Chloride 95 mmol/L (98-107) L 04/24/25 22:22 Carbon Dioxide 31 mmol/L (22-29) H 04/24/25 22:22 Anion Gap 12.1 (5-19) 04/24/25 22:22 BUN 17 mg/dL (8-23) 04/24/25 22:22 Creatinine 1.2 mg/dL (0.7-1.2) 04/24/25 22:22 GFR Calculation 60.6 mL/min (90-130) L 04/24/25 22:22 Glucose 82 mg/dL (65-115) 04/24/25 22:22 Calculated Osmolality 279 mOsm/kg (285-295) L 04/24/25 22:22 Lactic Acid 0.8 mmol/L (0.5-2.2) 04/25/25 01:48 Calcium 9.4 mg/dL (8.5-10.5) 04/24/25 22:22 Total Bilirubin 0.3 mg/dL (0.15-1.2) 04/24/25 22:22 AST 190 U/L (0-40) H 04/24/25 22:22 ALT 61 U/L (0-41) H 04/24/25 22:22 Alkaline Phosphatase 55 U/L (40-130) 04/24/25 22:22 Total Protein 6.7 g/dL (6.6-8.7) 04/24/25 22:22 Albumin 3.6 g/dL (3.5-5.2) 04/24/25 22:22 Globulin 3.1 g/dL (1.3-4.6) 04/24/25 22:22 Influenza A (PCR) Negative (Negative) 04/24/25 22:26 Influenza Type B (PCR) Negative (Negative) 04/24/25 22:26 RSV (PCR) Negative (Negative) 04/24/25 22:26 SARS-CoV-2 (PCR) Negative (Negative) 04/24/25 22:26 All radiology interpretation(s) finalized by discharge Discharge Plan Discharge Patient Disposition: Xfer Short-Term Hosp Clinical Impression: Postobstructive pneumonia, COPD (chronic obstructive pulmonary disease), Parapneumonic effusion, Non-small cell lung cancer metastatic to liver Condition: Stable Print Language: Mosotho Coding Level of Care Code 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
[2025-04-24 22:36] LABS: Hematocrit 35.7 % (37-53); Hemoglobin 11.70 g/dL (11.27-16.99); Mean Corpuscular HGB Conc 32.8 g/dL (30-55); Mean Corpuscular Hemoglobin 31.8 pg (27-33); Mean Corpuscular Volume 97.0 fl (82-101); Nucleated Red Blood Cells % 0 %; Platelet Count 181 10^3/cmm (157-399); Red Blood Count 3.68 10^6/uL (3.85-5.65); White Blood Count 6.26 10^3/uL (3.29-11.43)
[2025-04-24 22:50] VITALS: BP 125/69; PULSE 51; O2SAT 96
[2025-04-24 22:53] LABS: Alanine Aminotransferase 61 U/L (0-41); Albumin Level 3.6 g/dL (3.5-5.2); Alkaline Phosphatase 55 U/L (40-130); Blood Urea Nitrogen 17 mg/dL (8-23); Calcium 9.4 mg/dL (8.5-10.5); Carbon Dioxide 31 mmol/L (22-29); Chloride 95 mmol/L (98-107); Globulin 3.1 g/dL (1.3-4.6); Glucose 82 mg/dL (65-115); Osmolality Calculated 279 mOsm/kg (285-295); Sodium 134 mmol/L (136-145); Total Protein 6.7 g/dL (6.6-8.7)
[2025-04-24 22:59] LABS: Anion Gap 12.1 (5-19); Aspartate Amino Transferase 190 U/L (0-40); Potassium 4.1 mmol/L (3.5-5.1)
[2025-04-24 23:08] LABS: Respiratory Syncytial Virus Ce NEGATIVE (Negative); SARS-CoV-2 PCR NEGATIVE (Negative)
[2025-04-24] MEDS: iohexol 350 mg/mL 500 mL Btl (per mL) IV (23:19)
[2025-04-24 23:30] VITALS: BP 129/79; PULSE 49; O2SAT 99
[2025-04-25] VITALS (20 sets, daily range): BP systolic 85–159; BP diastolic 34–99; PULSE 43–186; RESP 16–22; O2SAT 92–98
[2025-04-25] MEDS: piperacillin-tazobactam 3.375 GM in sodium chloride 0.9% (plus) 50 ML IV ×3 (00:36→16:19)
--- NOTE | 2025-04-25 01:39 | PC.NURSE ---
dr. franz accepted but no bed available. accepting hospital said they would call once a shifr for pt updated and would call once a bed was available.
[2025-04-25 02:18] LABS: Lactic Sepsis W/Reflex 0.8 mmol/L (0.5-2.2)
--- NOTE | 2025-04-25 06:55 | PC.NURSE ---
during nurse rounding, pt agitated and not cooperative with obtaining vital signs. pt refusing cardiac monitoring, refusing to keep b/p cuff on.
--- NOTE | 2025-04-25 07:09 | PC.NURSE ---
provided pt with tissues and picked up call light. pt requesting coffee, educated pt on need to discuss diet with Winifred first.
--- NOTE | 2025-04-25 07:32 | PHA.VACGOAL ---
Vancomycin Goal - Goal Vancomycin Goal:: 15-20 mg/L Vancomycin Indication:: Other - Therapy Current therapy:: Pip/Tazo Day of therpy:: Day []of [] . Actual body weight (kg): 181 lb - Data Labs: WBC 6.26 10^3/uL (3.29-11.43) 04/24/25 22:22 RBC 3.68 10^6/uL (3.85-5.65) L 04/24/25 22:22 Hgb 11.70 g/dL (11.27-16.99) 04/24/25 22:22 Hct 35.7 % (37-53) L 04/24/25 22:22 MCV 97.0 fl (82-101) 04/24/25 22:22 MCH 31.8 pg (27-33) 04/24/25 22:22 MCHC 32.8 g/dL (30-55) 04/24/25 22:22 RDW 16.9 % (12.1-15.1) H 04/24/25 22:22 Sodium 134 mmol/L (136-145) L 04/24/25 22:22 Potassium 4.1 mmol/L (3.5-5.1) 04/24/25 22:22 Chloride 95 mmol/L (98-107) L 04/24/25 22:22 Carbon Dioxide 31 mmol/L (22-29) H 04/24/25 22:22 Anion Gap 12.1 (5-19) 04/24/25 22:22 BUN 17 mg/dL (8-23) 04/24/25 22:22 Creatinine 1.2 mg/dL (0.7-1.2) 04/24/25 22:22 GFR Calculation 60.6 mL/min (90-130) L 04/24/25 22:22 Last dialysis session:: N/A Treatment plan:: new consult Regimen:: LOADING DOSE OF 1000 MG X 1 GIVEN IN ER. STARTING MAINTENANCE DOSE OF 1000 MG Q12H PER DOSING PROTOCOL Follow up:: WILL CONTINUE TO MONITOR AND FOLLOW UP DAILY
--- NOTE | 2025-04-25 08:56 | PC.NURSE ---
pt refusing b/p at this time. educated on need for b/p, pt states wanting to sleep at this time, awake and alert with verbal instruction.
--- NOTE | 2025-04-25 09:23 | PC.NURSE ---
per Dr. Rios to order pt breakfast tray.
--- NOTE | 2025-04-25 09:56 | PC.NURSE ---
PT out of room agitated and yelling at nurses. PT redirected back to room. manager electrical to bedside. PT still refusing vital signs or monitoring.
[2025-04-25] MEDS: HYDROcodone-acetaminophen 10-325 mg Tablet 1 TAB PO ×3 (10:07→21:18)
--- NOTE | 2025-04-25 10:27 | PC.NURSE ---
updated Winifred, no obvious change in PT condition. Staff from [facility] reported they were not sure on bed availability time.
--- NOTE | 2025-04-25 12:23 | PC.NURSE ---
pt refusing vitals other than blood pressure at this time. pt packing up belongings to send home with friend
--- NOTE | 2025-04-25 14:28 | P.CONIM_ITS ---
Providers/Reason For Consult 2 Consulting Physician/Specialty*: Emergency department / Dr. Luke Reason for Consult*: Medical management Requesting Physician: Dr. Luke Attending Physician: Eliud Lucia NP History of Present Illness History of Present Illness Fran Davidson is a 64 year old male AFIB, COPD, non-small cell lung cancer w/ liver metastasis, hyperthyroidism, anemia Patient presented to the ED with SOA. He is know to have COPD and non-small cell lung cancer with liver metastasis. Oxygen dependent at baseline (3L). CTA chest revealed near complete consolidation in the left lung, volume loss of the left lung with cardiomediastinal shift to the the left, and moderate left parapneumonic effusion. He is waiting for transfer to [facility] for further evaluation and treatment. Review of Systems 2 General: Reports: 10 or more systems reviewed and unremarkable except in HPI and below Medications/Allergies Home Medications ?Medication ?Instructions ?Recorded ?Confirmed ?Last Taken ?Type prochlorperazine maleate 10 mg 10 mg PO Q4H PRN mild n ausea #30 10/04/24 04/25/25 Unknown Rx tablet (Compazine) tabs lidocaine-prilocaine 2.5 %-2.5 % 1 applic topical .Mobilitec PLEX #30 grams 11/09/24 04/25/25 Unknown Rx topical cream nicotine 21 mg/24 hr daily 1 patch transdermal DAILY t ob 11/15/24 04/25/25 12/26/24 Rx transdermal patch dependence #28 ea polyethylene glycol 3350 17 17 g PO DAILY PRN constipa tion 12/27/24 04/25/25 Unknown History gram/dose oral powder (Miralax) diltiazem HCl 120 mg 120 mg PO DAILY PRN tachycar darren 12/28/24 04/25/25 Unknown Rx tablet,extended release 24 hr #30 tabs (Cardizem LA) [facility] bed #1 ea 01/25/25 04/25/25 Unkn own Rx oxycodone 30 mg tablet 30 mg PO Q4H PRN pain 30 day s #120 03/08/25 04/25/25 04/09/25 Rx tabs oxycodone myristate 13.5 mg 13.5 mg PO Q12H 30 days #6 0 ea 03/08/25 04/25/25 Unknown Rx capsule sprinkle extend release 12hr(DON'T CRUSH) (Xtampza ER) albuterol sulfate 90 mcg/actuation 2 inh inhalation QI D PRN shortness 03/14/25 04/25/25 Unknown Rx aerosol inhaler (Ventolin HFA) of breath or wheezing # 8.5 grams albuterol sulfate 90 mcg/actuation 2 inh inhalation Q4 H PRN shortness 04/09/25 04/25/25 Unknown Rx aerosol inhaler of breath or wheezing #18 gr ams guaifenesin 600 mg tablet, 600 mg PO BID #20 tabs 03/3104/25/25 Unknown Rx extended release 12 hr (Mucinex) Allergies Allergy/AdvReac Type Severity Reaction Status Date / Time No Known Allergies Allergy Verified 03/28/25 01:33 Current Medications Generic Name Dose Route Start Last Admin Trade Name Freq PRN Reason Stop Dose Admin Piperacillin Sod/Tazobactam 50 mls @ 12.5 mls/hr 04/25/25 08:30 04/25/25 08:55 Sod 3.375 gm/ Sodium Chloride IV 12.5 mls/hr Q8H IMER Administration Vancomycin HCl 1,000 mg/ 250 mls @ 250 mls/hr 04/25/25 13:00 04/25/25 13:06 Sodium Chloride IV 250 mls/hr Q12H IMER Administration PFSH Acute 2 PFSH: Medical History Abnormal CT lung screening Lung nodule seen on imaging study Smoker unmotivated to quit Started age 13 1/2 to 1 ppd PUD (peptic ulcer disease) COPD (chronic obstructive pulmonary disease) Surgical History H/O hernia repair Ventral Social History Smoking and tobacco/nicotine status: former use of tobacco/nicotine Alcohol intake: never Substance/Drug Use: current Substance/Drug use frequency: few times a week Vitals/I&O/Wt Last Vital Signs Temp 98.3 F 04/24/25 21:28 Pulse 68 04/25/25 14:21 Resp 16 04/25/25 13:10 BP 105/87 04/25/25 14:21 Pulse Ox 93 11/26/25 14:21 O2 Del Method Nasal Cannula 04/25/25 14:21 O2 Flow Rate 3 04/25/25 14:21 04/24/25 04/25/25 04/25/25 22:59 06:59 14:59 Intake Total 300 / 300 Balance 300 / 300 Weight last 48 hrs Weight 82.1 kg Physical Exam 2 Narrative: Constitutional: NAD. Chronically ill appearing. Psychiatric: anxious Head: NC/AT Eyes: PERRLA, EOMI Ears: Normal external ears. Hearing intact to normal voice. Nose: Normal external nose. No epistaxis. Throat: MMM. Hoarse voice. Respiratory: Left lung with minimal air movement RUL/RML/RLL diminished mildly tachypneic at rest. No accessory muscle use. Cardiovascular: Regular. No murmur. Extremities: BLE edema 3+ Gastrointestinal: Soft. NT. ND. +BS Genitourinary: No gamble catheter Data 04/25/25 21:07 04/25/25 21:07 Other Labs: Labs 04/25/25 2222 reviewed Hemogram WBC 6.26 RBC 3.68 PLT 181 HGB 11.7 HCT 35.7 Chemistry Na 134 K 4.1 Cl 95 Ca 9.4 Glu 82 CO2 31 AG 12.1 BUN 17 Cr 1.2 eGFR 60.6 Liver AST 190 ALT 61 ALP 55 T.Bili 0.3 T.Protein 6.7 Alb 3.6 Viral studies Influenza A/B (-) RSV (-) COVID (-) Micro: Microbiology 04/25/25 02:27 Blood Culture - Preliminary Blood SPECIMEN COLLECTED 04/25/25 01:48 Blood Culture - Preliminary Blood SPECIMEN COLLECTED CXR: Radiologist's impression: CXR 04/24/25 reviewed Lungs: Near-complete opacification of the left hemithorax. The right lung is relatively clear. Pleural spaces: No sizable pneumothorax. Heart/Mediastinum: There is mediastinal shift to the left. Obscuration of the cardiomediastinal silhouette. Bones/joints: Unremarkable. IMPRESSION: Near-complete opacification of the left hemithorax with mediastinal shift to the left likely represents atelectasis due to an obstructing area in the left mainstem bronchus. CTA Chest: Radiologist's impression: FINDINGS: Pulmonary arteries: No pulmonary embolism. Aorta: Atherosclerotic changes of the aorta. Lungs: Near complete consolidation in the left lung, likely from the extensive multilobar pneumonia. Volume loss of the left lung with cardiomediastinal shift to the left. Moderate left parapneumonic effusion. Moderate centrilobular emphysema, preferentially involving the lung apices. Pleural spaces: See Lungs finding. Heart: Unremarkable. No cardiomegaly. No pericardial effusion. Lymph nodes: Unremarkable. No enlarged lymph nodes. Liver: Indeterminate low-attenuation areas in the right hepatic lobe segment 6, if there is concern for malignancy, recommend MRI correlation. Bones/joints: Degenerative changes of the spine. Soft tissues: Unremarkable. IMPRESSION: 1. No pulmonary embolism. 2. Near complete consolidation in the left lung, likely from the extensive multilobar pneumonia. Volume loss of the left lung with cardiomediastinal shift to the left. Moderate left parapneumonic effusion. 3. Moderate centrilobular emphysema, preferentially involving the lung apices. 4. Indeterminate low-attenuation areas in the right hepatic lobe segment 6, if there is concern for malignancy, recommend MRI correlation. COMMENTS: The presence of pulmonary emphysema on CT is an independent risk factor for lung cancer. In the absence of a history or active diagnosis of lung cancer, it is recommended that this patient with emphysema be evaluated for enrollment in a low dose CT lung cancer screening program. EKG 1: My Interpretation: EKG 04/24/250 reviewed Sinus bradycardia (v-rate 46) A&P Assessment and plan 1. Postobstructive pneumonia: 2. Parapneumonic effusion: 3. Non-small cell lung cancer metastatic to liver: Plan: # post obstructive pneumonia # parapneumonic effusion # left hilar mass # non-small cell lung cancer Influenza A/B, RSV and COVID negative - Pending transfer to [facility] - Blood cx and sputum cx collected in ED, pending - Bbx: zosyn and vancomycin - Incentive spirometer - RT assess and treat # COPD (retainer) - DuoNebs Q6H # Transaminitis - Trend # BLE edema - furosemide 40 mg IV x1 # Tobacco dependence w/ current use - nicotine patch # Asymptomatic sinus bradycardia VTE PPx with SCDs and lovenox PDMP PDMP Reviewed: Not Reviewed Consult Attestations 2 Medical Necessity Statement: Consultation was medically necessary. Referring provider requested assessment due to the complexity of the patient's condition, and need for management of patient's ongoing and comorbid conditions Coding Level of Care Code 87502 Diagnoses Postobstructive pneumonia J18.9 Parapneumonic effusion J18.9; J91.8 Non-small cell lung cancer metastatic to liver C34.90; C78.7
[2025-04-25] MEDS: FUROsemide 10 mg/mL SDV 4mL 40 MG IVP (16:54)
[2025-04-25 21:18] LABS: Hematocrit 34.7 % (37-53); Hemoglobin 11.50 g/dL (11.27-16.99); Mean Corpuscular HGB Conc 33.1 g/dL (30-55); Mean Corpuscular Hemoglobin 31.7 pg (27-33); Mean Corpuscular Volume 95.6 fl (82-101); Nucleated Red Blood Cells % 0 %; Platelet Count 174 10^3/cmm (157-399); Red Blood Count 3.63 10^6/uL (3.85-5.65); White Blood Count 6.91 10^3/uL (3.29-11.43)
[2025-04-25 21:58] LABS: Alanine Aminotransferase 58 U/L (0-41); Albumin Level 3.7 g/dL (3.5-5.2); Alkaline Phosphatase 54 U/L (40-130); Anion Gap 10.2 (5-19); Aspartate Amino Transferase 159 U/L (0-40); Blood Urea Nitrogen 16 mg/dL (8-23); Calcium 9.7 mg/dL (8.5-10.5); Carbon Dioxide 35 mmol/L (22-29); Chloride 95 mmol/L (98-107); Globulin 3.4 g/dL (1.3-4.6); Glucose 100 mg/dL (65-115); Osmolality Calculated 283 mOsm/kg (285-295); Potassium 4.2 mmol/L (3.5-5.1); Sodium 136 mmol/L (136-145); Total Protein 7.1 g/dL (6.6-8.7)
== END 2025-04-25 21:48 | disposition short-term general hospital (02) ==
PROVIDERS: Emergency Provider Family Medicine
DX: J18.8 Other pneumonia, unspecified organism (principal); J44.9 Chronic obstructive pulmonary disease, unspecified; J90 Pleural effusion, not elsewhere classified; Z85.118 Personal history of other malignant neoplasm of bronchus and lung; Z85.05 Personal history of malignant neoplasm of liver; Z87.891 Personal history of nicotine dependence; Z11.52 Encounter for screening for COVID-19
CPT/HCPCS: 36415; 71045; 71275; 80053; 83605; 85025; 87040; 87637; 93005; 94640; 94664; 96365; 96366; 96367; 96372; 96375; 99285; J1650; J1938; J2543; J3373; J7050; J9999